=== PATIENT | female | born 1980 | race Native Hawaiian/Other Pacific Islander ===

== ENCOUNTER 2019-12-31 06:34 | Emergency (ER) | payer OTHER, SELFPAY ==
[2019-12-31 06:48] VITALS: BP 116/75; PULSE 74; RESP 15; TEMP 36.6; O2SAT 96; BMI 33.9
--- NOTE | 2019-12-31 07:10 | XR_ITS ---
EXAMINATION: XR LUMBOSACRAL SPINE CLINICAL INFORMATION: Back pain COMPARISON: 01/07/2019 TECHNIQUE: Three views of the lumbosacral spine. FINDINGS: 5 nonrib-bearing vertebral bodies. Normal alignment. Vertebral body heights are maintained. No evidence of vertebral compression deformities. Degenerative changes at T11-12, and L1-2. SI joints and visualized sacrum is intact. Visualized bowel gas pattern is unremarkable. Surgical clips in the right upper abdomen. IMPRESSION: 1. No evidence of acute osseous abnormality. 2. Degenerative changes in the visualized lower lumbar spine, most prominent at T11-12.
--- NOTE | 2019-12-31 07:17 | ED.BACK ---
HPI - Back Pain/Injury General Chief Complaint: Back Pain/Injury Stated Complaint: ?NERVE PAIN LOWER BACK Time Seen by Provider: 12/31/19 07:10 Source: patient Mode of arrival: ambulatory Limitations: no limitations History of Present Illness HPI Narrative: 39-year-old female otherwise relatively healthy presented with low back pain for the past few days slowly and gradually worsening, pain started to radiate to her right buttock area, patient denies any recent trauma specifically to her back, do not report any heavy lifting or strenuous activity, patient also denies any urinary incontinence. MD elicited complaint: back pain Similar Symptoms Previously: No Quality: dull Location: lumbar spine Radiation: buttocks ( Right-sided.) Exacerbating factors: movement and supine positioning Relieving factors: immobilization Related Data Previous Rx's Medication Instructions Recorded oxycodone-acetaminophen [Percocet] 1 tab PO Q8H PRN #10 tab 12/31/19 oxycodone-acetaminophen [Percocet] 1 tab PO Q8H PRN #30 tab 12/31/19 Allergies Allergy/AdvReac Type Severity Reaction Status Date / Time No Known Allergies Allergy Verified 12/31/19 06:47 [No Known Allergies*] Review of Systems Review of Systems: Yes all other systems are reviewed and are negative PMFSH Past Medical History Medical History Anxiety Depression Social History Social History Alcohol intake: never Smoking Status: Never smoker Use of substances other than those prescribed or required for medical reasons: No Advance Directives: No Physical Exam Vital Signs: Vital Signs: Vital Signs Temp Pulse Resp BP Pulse Ox 12/31/19 08:55 98.0 F 67 15 104/64 12/31/19 07:31 67 14 99/52 L 99 12/31/19 06:48 98 F 74 15 116/75 96 Body Mass Index 33.9 Const: General: cooperative and healthy appearing Orientation/consciousness: oriented to person Eyes: General: appearance normal, both eyes and all related structures Chest: Chest palpation & inspection: normal inspection of the chest Resp: Effort & Inspection: normal respiratory effort Cardio: Jugular venous distension: no JVD GI: Inspection: Yes normal to inspection : General: Yes Bimanual renal exam normal bilaterally Skin: General skin exam: no rashes or lesions noted Neuro: General: oriented to person Extrem: General: Yes normal to inspection Course Course Course Narrative: 39 years old female presented with few days of progressing lower back pain, no history of trauma, no history of IV drug abuse, stable vital sign, physical exam not indicated if for cauda equina syndrome, able to ambulate on both toes and heels in the emergency department, patient also is complaining of slightly nausea and lightheaded probably due to patient has pain and did not have breakfast yet abdominal exam was benign. Will check UA, urine , and lumbar spine x-ray, will try NSAIDs. MDM - Back Pain/Injury MDM Narrative Medical decision making narrative: Acute lower back pain nontraumatic, unremarkable UA, unremarkable lumbar spine x-ray. Patient feels slightly better with Motrin ibuprofen patient has intact neuro exam including perianal sensation is intact with no urinary incontinence. Differential Diagnosis Differential diagnosis: Likely lumbar radiculopathy, sciatica, strain of lumbar region and renal colic Medical Records Attestation: I reviewed the patient's medical records. Lab Data Attestation: I reviewed the patient's lab results. Labs: Lab Results 12/31/19 Range/Units 07:47 Urine Color YELLOW Urine Appearance CLEAR Urine pH 5.5 (5.0-8.0) Ur Specific [place] <= 1.005 (1.005-1.025) Urine Protein NEG (NEG-TRACE) MG/DL Urine Glucose (UA) NEG (NEG) MG/DL Urine Ketones NEG (NEG) MG/DL Urine Blood NEG (NEG) Urine Nitrite NEG (NEG) Ur Leukocyte Esterase NEG (NEG) Urine Test NEGATIVE (NEGATIVE) Discharge Plan Discharge Clinical Impression: Lumbar radiculopathy, Sciatica Patient Disposition: Home, Self-Care Instructions: Lumbar Radiculopathy (ED) Prescriptions: New oxycodone-acetaminophen [Percocet] 5-325 mg tablet 1 tab PO Q8H PRN (Reason: pain) Qty: 30 RF: 0 oxycodone-acetaminophen [Percocet] 5-325 mg tablet 1 tab PO Q8H PRN (Reason: pain) Qty: 10 RF: 0 Referrals: Regine Baird MD [Primary Care Provider] - 2 days Stand Alone Forms: Work/School Release
[2019-12-31] MEDS: Ibuprofen 800 MG TABLET PO (07:29)
[2019-12-31 07:31] VITALS: BP 99/52; PULSE 67; RESP 14; O2SAT 99
--- NOTE | 2019-12-31 07:48 | PC.NURSE ---
PT AMB (I) GAIT STEADY TO [facility], PT VOIDED, PT STATES THAT N/V AND VOMITTED MOTRIN 800MG PO THAT WAS GIVEN PRIOR TO GOING TO [facility], MD AWARE.
[2019-12-31 07:57] LABS: Glucose Urine UA NEG (NEG); Leukocyte Esterase Urine NEG (NEG); Nitrite Urine NEG (NEG); PH 5.5 (5.0-8.0); Specific Gravity - Urine <= 1.005 (1.005-1.025); Urine Blood NEG (NEG); Urine Ketones NEG (NEG); Urine Protein NEG (NEG-TRACE)
[2019-12-31 08:01] LABS: Appearance Urine CLEAR; Color Urine YELLOW; UPreg QC Valid YES; Urine Pregnancy NEGATIVE (NEGATIVE)
[2019-12-31 08:55] VITALS: BP 104/64; PULSE 67; RESP 15; TEMP 36.7
== END 2019-12-31 09:12 | disposition home or self-care (01) ==
PROVIDERS: Emergency Provider Emergency Medicine; PCP Internal Medicine
DX: M54.16 Radiculopathy, lumbar region (principal); M54.41 Lumbago with sciatica, right side
CPT/HCPCS: 72100; 81003; 81025; 99283; 99284

== ENCOUNTER 2020-03-09 23:31 | Emergency (ER) | payer OTHER, SELFPAY ==
[2020-03-09 23:53] VITALS: BP 126/68; PULSE 65; RESP 16; TEMP 36.2; O2SAT 100; BMI 32.1
--- NOTE | 2020-03-10 00:15 | ED.BACK ---
HPI - Back Pain/Injury General Chief Complaint: Back Pain/Injury <Lashanda Cash NP - Last Filed: 03/10/20 01:20> Stated Complaint: Back pain <Lashanda Cash NP - Last Filed: 03/10/20 01:20> Time Seen by Provider: 03/10/20 00:18 <Lashanda Cash NP - Last Filed: 03/10/20 01:20> Source: patient <Lashanda Cash NP - Last Filed: 03/10/20 01:20> Mode of arrival: ambulatory <Lashanda Cash NP - Last Filed: 03/10/20 01:20> Limitations: no limitations <Lashanda Cash NP - Last Filed: 03/10/20 01:20> History of Present Illness HPI Narrative: 39-year-old female chronic back pain presents with exacerbation of lower back pain and left hip pain. Patient states that she was at work, the pain kept getting worse. She states that she feels a popping feeling on the left hip. Denies symptoms indicating cauda equina, bladder and bowel incontinence, loss of sensation to the extremities, loss of balance, chest pain or pressure, palpitations, abdominal pain, and abdominal distention, and edema. <Lashanda Cash NP - Last Filed: 03/10/20 01:20> MD elicited complaint: back pain <Lashanda Cash NP - Last Filed: 03/10/20 01:20> Pertinent past history: prior back pain <Lashanda Cash NP - Last Filed: 03/10/20 01:20> Onset (ago): day(s) <KATERYNA Potts Last Filed: 03/10/20 01:20> Timing: constant <Lashanda Cash NP - Last Filed: 03/10/20 01:20> Severity: severe <Lashanda Cash NP - Last Filed: 03/10/20 01:20> Pain scale (0-10): 10 <Lashanda Cash NP - Last Filed: 03/10/20 01:20> Similar Symptoms Previously: Yes <Lashanda Cash NP - Last Filed: 03/10/20 01:20> Quality: aching and throbbing <Lashanda Cash NP - Last Filed: 03/10/20 01:20> Location: lumbar spine and sacrum <Lashanda Cash NP - Last Filed: 03/10/20 01:20> Exacerbating factors: movement and walking <Lashanda Cash NP - Last Filed: 03/10/20 01:20> Relieving factors: none <Lashanda Cash NP - Last Filed: 03/10/20 01:20> Context: turning/twisting <Lashanda Cash NP - Last Filed: 03/10/20 01:20> Associated symptoms: denies other symptoms <Lashanda Cash NP - Last Filed: 03/10/20 01:20> Work related injury: No <Lashanda Cash NP - Last Filed: 03/10/20 01:20> Related Data Home Medications: Previous Rx's Medication Instructions Recorded oxycodone-acetaminophen [Percocet] 1 tab PO Q8H PRN #10 tab 12/31/19 oxycodone-acetaminophen [Percocet] 1 tab PO Q8H PRN #30 tab 12/31/19 cyclobenzaprine 10 mg PO TID PRN #20 tab 03/10/20 diazepam 5 mg PO BEDTIME PRN #7 tab 03/10/20 <Lashanda Cash NP - Last Filed: 03/10/20 01:20> Allergies/Adverse Reactions: Allergies Allergy/AdvReac Type Severity Reaction Status Date / Time No Known Allergies Allergy Verified 03/09/20 23:53 [No Known Allergies*] <Lashanda Cash NP - Last Filed: 03/10/20 01:20> Review of Systems Review of Systems: Constitutional: No Weight loss, No Fever, No Chills, ENT/Mouth: No Hearing loss, No Ear Pain, No Nasal Congestion, No Sinus Pain, No Hoarseness, No sore throat, No Rhinorrhea, No Swallowing Difficulty Cardiovascular: No Chest Pain, No SOB Respiratory: No Cough, No Dyspnea Gastrointestinal: No Nausea, No Vomiting, No Diarrhea, No abdominal Pain, No Hematochezia, No Melena Genitourinary: No Dysuria, No Urinary Frequency, No Hematuria, No Urinary Incontinence, Musculoskeletal: positive back pain Skin: No Skin Lesions, No rash Neuro: No Weakness, No Numbness, No Paresthesias, no loss of bowel or bladder incontinence, no saddle anesthesia <Lashanda Cash NP - Last Filed: 03/10/20 01:20> Yes all other systems are reviewed and are negative <Lashanda Cash NP - Last Filed: 03/10/20 01:20> PMFSH Past Medical History Attestation statement: The following information was validated with the patient. <Lashanda Cash NP - Last Filed: 03/10/20 01:20> Medical History: Medical History Anxiety Depression <Lashanda Cash NP - Last Filed: 03/10/20 01:20> Social History Social History: Social History Alcohol intake: never Smoking Status: Never smoker Use of substances other than those prescribed or required for medical reasons: No Advance Directives: No Advance Directives Information Provided: No <Lashanda Cash NP - Last Filed: 03/10/20 01:20> Physical Exam Vital Signs: Vital Signs: Last Vital Signs Temp 97.1 F 03/09/20 23:53 Pulse 65 03/09/20 23:53 Resp 16 03/09/20 23:53 BP 126/68 03/09/20 23:53 Pulse Ox 100 03/09/20 23:53 Body Mass Index 32.1 <Lashanda Cash NP - Last Filed: 03/10/20 01:20> Vital Signs: Last Vital Signs Temp 97.1 F 03/09/20 23:53 Pulse 65 03/09/20 23:53 Resp 16 03/09/20 23:53 BP 126/68 03/09/20 23:53 Pulse Ox 100 03/09/20 23:53 Body Mass Index 32.1 <Sarita Lujan MD - Last Filed: 03/10/20 07:43> Appearance: Alert. Oriented X3. Moderate distress. Eyes: Pupils equal, round and reactive to light. ENT: Pharynx normal. Neck: Normal inspection. Neck supple. CVS: Normal heart rate and rhythm. Pulses normal. Respiratory: No respiratory distress. Breath sounds normal. Abdomen: Soft and nontender. Skin: Skin warm and dry. Normal skin color. Normal skin turgor. Muscular skeletal: Tenderness to lower palpation, bilateral CVA tenderness secondary to muscle spasms. Extremities: No lower extremity edema. Full range of motion to all extremities, strength 5/5, sensation and pulses equal to all extremities. Neuro: No motor deficit. No sensory deficit. <Lashanda Cash NP - Last Filed: 03/10/20 01:20> Course Course Course Narrative: 39-year-old with chronic back pain presents with an exacerbation of lower back pain and muscle spasms. Plan of care is for x-rays, Toradol. Patient is driving. X-rays are normal and indicate chronic findings of degenerative joint disease. Plan of care is to discharge home. Patient verbalized understanding of and agrees to plan of care. <Lashanda Cash NP - Last Filed: 03/10/20 01:20> MDM - Back Pain/Injury Differential Diagnosis Differential diagnosis: Likely lumbar radiculopathy, sciatica, strain of lumbar region, thoracic back pain and discitis <Lashanda Cash NP - Last Filed: 03/10/20 01:20> Medical Records Attestation: I reviewed the patient's medical records. <KATERYNA Potts Last Filed: 03/10/20 01:20> Imaging Data Lumbar, sacral spine x-rays. Left hip x-ray: Attestation: I personally reviewed and interpreted this imaging study as follows: <Lashanda Cash NP - Last Filed: 03/10/20 01:20> Radiologist's impression: EXAMINATION: XR LUMBAR SPINE XR SACRUM AND COCCYX XR HIP, LEFT CLINICAL INFORMATION: Left hip pain. Low back pain. COMPARISON: Lumbar spine x-rays of 12/31/2019 and 01/07/2019. TECHNIQUE: 3 views of the lumbar spine. 3 views of the sacrum and coccyx. 2 views of left hip. FINDINGS: LUMBAR SPINE, SACRUM AND COCCYX: There are 5 lumbar-type nondependent vertebrae. Vertebral body heights and alignment are maintained. Intervertebral disc spaces are preserved. Small anterior endplate osteophytes are noted in the lower thoracic and upper lumbar spine. Sacrum and coccyx are intact. There is no evidence of from suspicious lytic or blastic osseous lesions. Surgical clips in the right upper abdominal quadrant are again noted. LEFT HIP: The femoral head is well seated in the acetabulum. Hip joint spaces preserved. No evidence of subarticular sclerosis or cystic changes. No osteophytic changes are noted. Normal osseous mineralization. No dystrophic soft tissue calcifications are seen. XR/XR hip LT min 2V IMPRESSION: 1. No evidence of acute compression fracture in the lumbar spine. No acute osseous abnormality in the sacrum and coccyx. Mild degenerative changes in the visualized lower thoracic and upper lumbar spine. 2. Unremarkable left hip radiographs. <Lashanda Cash NP - Last Filed: 03/10/20 01:20> Discharge Plan Discharge Clinical Impression: Degenerative disc disease at L5-S1 level, Muscle spasm of back <KATERYNA Potts Last Filed: 03/10/20 01:20> Patient Disposition: Home, Self-Care <Lashanda Cash NP - Last Filed: 03/10/20 01:20> Instructions: Muscle Spasm (ED), Degenerative Disc Disease (ED) <KATERYNA Potts Last Filed: 03/10/20 01:20> Additional Instructions: You were evaluated for chronic lower back pain and muscle spasms. We prescribed diazepam which is a benzo diazepam. Do not drink alcohol with the medication. Take this medication as directed. Medication can increase risk for falls and cause drowsiness. Do not drive or operate machinery while taking this medication. Use this medication at night to help relieve your muscle spasms. We prescribed Flexeril -cyclobenzaprine- as a muscle relaxer. This medication will not take away her pain it will relieve the tension of the muscles on the spine. This medication is not a narcotic, but can delay reaction time, cause drowsiness, and increased risk for falls. 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 You need further care to prevent further deterioration Thank you for choosing this emergency department for evaluation. Please follow-up with primary care physician as needed. Return to the emergency department for any new, concerning, or worsening symptoms. <KATERYNA Potts Last Filed: 03/10/20 01:20> Prescriptions: New cyclobenzaprine 10 mg tablet 10 mg PO TID PRN (Reason: muscle spasm) Qty: 20 RF: 0 diazepam 5 mg tablet 5 mg PO BEDTIME PRN (Reason: muscle spasm) Qty: 7 RF: 0 No Action oxycodone-acetaminophen [Percocet] 5-325 mg tablet 1 tab PO Q8H PRN (Reason: pain) Qty: 30 RF: 0 oxycodone-acetaminophen [Percocet] 5-325 mg tablet 1 tab PO Q8H PRN (Reason: pain) Qty: 10 RF: 0 <Lashanda Cash NP - Last Filed: 03/10/20 01:20> Referrals: Avila Arzate MD [Physician] - 2 days (Degenerative joint disease, chronic back pain) <Lashanda Cash NP - Last Filed: 03/10/20 01:20> Interventions: ED Discharge Assessment Last Done: 03/10/20 01:21 <Lashanda Cash NP - Last Filed: 03/10/20 01:20> Discharge Date/Time: 03/10/20 01:24 <Lashanda Cash NP - Last Filed: 03/10/20 01:20>
--- NOTE | 2020-03-10 00:22 | XR_ITS ---
EXAMINATION: XR LUMBAR SPINE XR SACRUM AND COCCYX XR HIP, LEFT CLINICAL INFORMATION: Left hip pain. Low back pain. COMPARISON: Lumbar spine x-rays of 12/31/2019 and 01/07/2019. TECHNIQUE: 3 views of the lumbar spine. 3 views of the sacrum and coccyx. 2 views of left hip. FINDINGS: LUMBAR SPINE, SACRUM AND COCCYX: There are 5 lumbar-type nondependent vertebrae. Vertebral body heights and alignment are maintained. Intervertebral disc spaces are preserved. Small anterior endplate osteophytes are noted in the lower thoracic and upper lumbar spine. Sacrum and coccyx are intact. There is no evidence of from suspicious lytic or blastic osseous lesions. Surgical clips in the right upper abdominal quadrant are again noted. LEFT HIP: The femoral head is well seated in the acetabulum. Hip joint spaces preserved. No evidence of subarticular sclerosis or cystic changes. No osteophytic changes are noted. Normal osseous mineralization. No dystrophic soft tissue calcifications are seen. XR/XR hip LT min 2V IMPRESSION: 1. No evidence of acute compression fracture in the lumbar spine. No acute osseous abnormality in the sacrum and coccyx. Mild degenerative changes in the visualized lower thoracic and upper lumbar spine. 2. Unremarkable left hip radiographs.
--- NOTE | 2020-03-10 00:22 | XR_ITS ---
EXAMINATION: XR LUMBAR SPINE XR SACRUM AND COCCYX XR HIP, LEFT CLINICAL INFORMATION: Left hip pain. Low back pain. COMPARISON: Lumbar spine x-rays of 12/31/2019 and 01/07/2019. TECHNIQUE: 3 views of the lumbar spine. 3 views of the sacrum and coccyx. 2 views of left hip. FINDINGS: LUMBAR SPINE, SACRUM AND COCCYX: There are 5 lumbar-type nondependent vertebrae. Vertebral body heights and alignment are maintained. Intervertebral disc spaces are preserved. Small anterior endplate osteophytes are noted in the lower thoracic and upper lumbar spine. Sacrum and coccyx are intact. There is no evidence of from suspicious lytic or blastic osseous lesions. Surgical clips in the right upper abdominal quadrant are again noted. LEFT HIP: The femoral head is well seated in the acetabulum. Hip joint spaces preserved. No evidence of subarticular sclerosis or cystic changes. No osteophytic changes are noted. Normal osseous mineralization. No dystrophic soft tissue calcifications are seen. XR/XR lumbar spine 2-3V IMPRESSION: 1. No evidence of acute compression fracture in the lumbar spine. No acute osseous abnormality in the sacrum and coccyx. Mild degenerative changes in the visualized lower thoracic and upper lumbar spine. 2. Unremarkable left hip radiographs.
--- NOTE | 2020-03-10 00:22 | XR_ITS ---
EXAMINATION: XR LUMBAR SPINE XR SACRUM AND COCCYX XR HIP, LEFT CLINICAL INFORMATION: Left hip pain. Low back pain. COMPARISON: Lumbar spine x-rays of 12/31/2019 and 01/07/2019. TECHNIQUE: 3 views of the lumbar spine. 3 views of the sacrum and coccyx. 2 views of left hip. FINDINGS: LUMBAR SPINE, SACRUM AND COCCYX: There are 5 lumbar-type nondependent vertebrae. Vertebral body heights and alignment are maintained. Intervertebral disc spaces are preserved. Small anterior endplate osteophytes are noted in the lower thoracic and upper lumbar spine. Sacrum and coccyx are intact. There is no evidence of from suspicious lytic or blastic osseous lesions. Surgical clips in the right upper abdominal quadrant are again noted. LEFT HIP: The femoral head is well seated in the acetabulum. Hip joint spaces preserved. No evidence of subarticular sclerosis or cystic changes. No osteophytic changes are noted. Normal osseous mineralization. No dystrophic soft tissue calcifications are seen. XR/XR sacrum coccyx min 2V IMPRESSION: 1. No evidence of acute compression fracture in the lumbar spine. No acute osseous abnormality in the sacrum and coccyx. Mild degenerative changes in the visualized lower thoracic and upper lumbar spine. 2. Unremarkable left hip radiographs.
[2020-03-10] MEDS: Ketorolac Tromethamine 60 MG/2 ML VIAL IM (00:49)
== END 2020-03-10 01:24 | disposition home or self-care (01) ==
PROVIDERS: Emergency Provider Student in an Organized Health Care Education/Training Program; PCP Internal Medicine
DX: M51.37 Other intervertebral disc degeneration, lumbosacral region (principal); M54.5 Low back pain; Z79.899 Other long term (current) drug therapy
CPT/HCPCS: 72100; 72220; 73502; 96372; 99284; J1885

== ENCOUNTER 2020-04-20 08:06 | Emergency (ER) | payer OTHER, SELFPAY ==
--- NOTE | ~2020-04-20 | XR_ITS ---
EXAMINATION: XR CHEST CLINICAL INFORMATION: Cough COMPARISON: 05/01/2019 chest radiographs. TECHNIQUE: Frontal view of the chest was obtained. FINDINGS: No significant abnormality is noted involving the heart, lungs, mediastinum, bony thorax or soft tissues. XR/XR chest 1V IMPRESSION: No acute cardiopulmonary process.
[2020-04-20 08:15] VITALS: BP 134/79; PULSE 84; RESP 16; TEMP 36.8; O2SAT 99; BMI 33.9
--- NOTE | 2020-04-20 08:22 | ED_ITS ---
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 Does have family history of asthma. States chest hurts when she coughs. Otherwise no chest pain at rest or exertion, no leg swelling. Denies any prior history of DVT/PE. Not currently taking any hormone therapy. MD elicited complaint: cough Onset (ago): day(s) Consistency: intermittent Severity: moderate Description of mucous: clear Exacerbating factors: other (Cough) Relieving factors: cough suppressant Treatments prior to arrival: none Related Data Previous Rx's Medication Instructions Recorded oxycodone-acetaminophen [Percocet] 1 tab PO Q8H PRN #10 tab 12/31/19 oxycodone-acetaminophen [Percocet] 1 tab PO Q8H PRN #30 tab 12/31/19 cyclobenzaprine 10 mg PO TID PRN #20 tab 03/10/20 diazepam 5 mg PO BEDTIME PRN #7 tab 03/10/20 albuterol sulfate 2 puff INHALATION Q4-6H PRN #8.5 g 04/20/20 azithromycin [Zithromax Z-Candido] 250 mg PO DAILY 5 Days #6 tab 04/20/20 prednisone 40 mg PO DAILY 5 Days #10 tab 04/20/20 Allergies Allergy/AdvReac Type Severity Reaction Status Date / Time No Known Allergies Allergy Verified 03/09/20 23:53 [No Known Allergies*] Review of Systems Review of Systems: Constitutional: No Weight loss, No Fever, No Chills, No Night Sweats, No Fatigue, No Malaise ENT/Mouth: No Hearing loss, No Ear Pain, + Nasal Congestion, No Sinus Pain, No Hoarseness, No sore throat, No Rhinorrhea, No Swallowing Difficulty Eyes: No Eye Pain, No Swelling, No Redness, No Foreign Body, No Discharge, No Vision Changes Cardiovascular: No Chest Pain, No SOB, No Dyspnea on Exertion, No Orthopnea, No Edema, No Palpitations Respiratory: + Cough, No Sputum, No Wheezing, No Smoke Exposure, No Dyspnea Gastrointestinal: No Nausea, No Vomiting, No Diarrhea, No Constipation, No abdominal Pain, No Hematochezia, No Melena Genitourinary: No Dysuria, No Urinary Frequency, No Hematuria, No Urinary Incontinence, No Urgency, No Flank Pain, No Urinary Flow Changes, No Hesitancy Musculoskeletal: No joint pain, No Myalgias, No Joint Swelling Skin: No Skin Lesions, No rash Neuro: No Weakness, No Numbness, No Paresthesias, No Loss of Consciousness, No Dizziness, No Headache Psych: No Social Issues Heme/Lymph: No Bruising, No Bleeding,No Lymphadenopathy Endocrine: No Polyuria, No Polydipsia, No Temperature Intolerance Yes all other systems are reviewed and are negative [facility] Past Medical History Medical History (Updated 04/20/20 @ 09:35 by Ron Guerrero NP) Anxiety Asthma Depression Social History Social History Alcohol intake: never Smoking Status: Never smoker Use of substances other than those prescribed or required for medical reasons: No Advance Directives: No Advance Directives Information Provided: No Physical Exam Vital Signs: Vital Signs: Last Vital Signs Temp 98.3 F 04/20/20 08:15 Pulse 84 04/20/20 08:15 Resp 16 04/20/20 08:15 BP 134/79 04/20/20 08:15 Pulse Ox 99 04/20/20 08:15 Body Mass Index 33.9 Reviwed Const: General: cooperative and healthy appearing; No acute distress or intoxicated appearing Nutritional Appearance: average body habitus Orientation/consciousness: patient oriented x3 HENMT: Head: Yes normal to inspection Ears: hearing grossly normal bilaterally Eyes: General: appearance normal, both eyes and all related structures Visual Rivera: normal visual rivera by confrontation Neck: Neck: Yes normal visual inspection, No positive Brudzinski's sign, No positive Kernig's sign and No tender Thyroid: Thyroid normal Chest: Other: Fits of dry bronchial cough Chest palpation & inspection: normal inspection of the chest Resp: Effort & Inspection: normal respiratory effort Auscultation: clear to auscultation bilaterally Cardio: Jugular venous distension: no JVD GI: Inspection: Yes normal to inspection Percussion: Yes normal to percussion Auscultation: normal bowel sounds : General: Yes no CVA tenderness Back/Spine/Pelvis: Back: no CVA tenderness Skin: General skin exam: no rashes or lesions noted Neuro: General: patient oriented x3 Extrem: General: Yes normal to inspection Course Course Course Narrative: To remain out of work until at least 3 days symptom free, to follow work place policy. Overall nontoxic appearing. Chest x-ray without acute findings. Will discharge with azithromycin, short course prednisone and inhaler. Feels comfortable plan. Hemodynamically stable. Stable for discharge. MDM - URI/Sore Throat Differential Diagnosis Differential diagnosis: Likely upper respiratory infection, viral infection and bronchitis; Unlikely croup, otitis media, sinusitis, influenza and pharyngitis Medical Records Attestation: I reviewed the patient's medical records. Lab Data Attestation: I reviewed the patient's lab results. Labs: Lab Results 04/20/20 Range/Units 08:26 Coronavirus (PCR) NEGATIVE (Negative) Influenza Type A (PCR) NEGATIVE (Negative) Influenza Type B (PCR) NEGATIVE (Negative) RSV RNA Qual (PCR) NEGATIVE (Negative) Discharge Plan Discharge Clinical Impression: Acute upper respiratory infection Patient Disposition: Home, Self-Care Instructions: Upper Respiratory Infection (ED), Acute Bronchitis (ED) Additional Instructions: Your COVID test is negative today Your chest x-ray did not show any evidence of pneumonia Home care as instructed Take medication prescribed Drink plenty of fluids Return if any concerns or worsening symptoms Follow up as instructed Thank you Prescriptions: New azithromycin [Zithromax Z-Candido] 250 mg tablet 250 mg PO DAILY 5 Days Qty: 6 RF: 0 prednisone 20 mg tablet 40 mg PO DAILY 5 Days Qty: 10 RF: 0 albuterol sulfate 90 mcg/actuation HFA aerosol inhaler 2 puff inhalation Q4-6H PRN (Reason: shortness of breath or wheezing) Qty: 8.5 RF: 0 No Action oxycodone-acetaminophen [Percocet] 5-325 mg tablet 1 tab PO Q8H PRN (Reason: pain) Qty: 30 RF: 0 oxycodone-acetaminophen [Percocet] 5-325 mg tablet 1 tab PO Q8H PRN (Reason: pain) Qty: 10 RF: 0 cyclobenzaprine 10 mg tablet 10 mg PO TID PRN (Reason: muscle spasm) Qty: 20 RF: 0 diazepam 5 mg tablet 5 mg PO BEDTIME PRN (Reason: muscle spasm) Qty: 7 RF: 0 Referrals: Regine Baird MD [Primary Care Provider] - 1 week (Phone Visit ) Stand Alone Forms: Work/School Release Interventions: ED Discharge Assessment Last Done: 04/20/20 10:03 Discharge Date/Time: 04/20/20 10:04
[2020-04-20 09:40] LABS: Influenza A PCR NEGATIVE (Negative); Influenza B PCR NEGATIVE (Negative); Resp Syncy Virus RNA Qual PCR NEGATIVE (Negative); SARS COV2 PCR INHOUSE NEGATIVE (Negative)
== END 2020-04-20 10:04 | disposition home or self-care (01) ==
PROVIDERS: Nurse Practitioner Primary Care; Emergency Provider Emergency Medicine; PCP Internal Medicine
DX: J06.9 Acute upper respiratory infection, unspecified (principal); R50.9 Fever, unspecified; R05 Cough; Z79.899 Other long term (current) drug therapy; Z20.822 Contact with and (suspected) exposure to COVID-19
CPT/HCPCS: 0241U; 36415; 71045; 99283; 99284

== ENCOUNTER 2020-05-01 04:52 | Emergency (ER) | payer OTHER, SELFPAY ==
--- NOTE | 2020-05-01 05:32 | ED.BACK ---
HPI - Back Pain/Injury General Chief Complaint: Back Pain/Injury Stated Complaint: PINCHED NERVE BACK PAIN Time Seen by Provider: 05/01/20 05:12 Source: patient and old records reviewed Mode of arrival: ambulatory Limitations: no limitations History of Present Illness HPI Narrative: 40 yo female with back pain recently dx with neural tumor per her - twisted tonight and felt a pop causing pain - no b/b incontinence, no saddle anesthesia, no IVDA< no AC therapy MD elicited complaint: back pain and back injury Pertinent past history: prior back pain Onset (ago): hour(s) (prior to arrival ) Timing: constant Severity: severe Quality: sharp Location: lumbar spine Radiation: right upper leg Exacerbating factors: movement Relieving factors: none Context: turning/twisting Associated symptoms: denies other symptoms Work related injury: No Related Data Previous Rx's Medication Instructions Recorded oxycodone-acetaminophen [Percocet] 1 tab PO Q8H PRN #10 tab 12/31/19 oxycodone-acetaminophen [Percocet] 1 tab PO Q8H PRN #30 tab 12/31/19 cyclobenzaprine 10 mg PO TID PRN #20 tab 03/10/20 diazepam 5 mg PO BEDTIME PRN #7 tab 03/10/20 albuterol sulfate 2 puff INHALATION Q4-6H PRN #8.5 g 04/20/20 azithromycin [Zithromax Z-Candido] 250 mg PO DAILY 5 Days #6 tab 04/20/20 prednisone 40 mg PO DAILY 5 Days #10 tab 04/20/20 diazepam [Valium] 5 mg PO TID PRN #10 tab 05/01/20 gabapentin 100 mg PO TID PRN #30 cap 05/01/20 ibuprofen 600 mg PO Q6H PRN #30 tab 05/01/20 Allergies Allergy/AdvReac Type Severity Reaction Status Date / Time No Known Allergies Allergy Verified 05/01/20 05:39 [No Known Allergies*] Review of Systems Review of Systems: Constitutional : No Fever, No Chills, Cardiovascular : No Chest Pain, No SOB Respiratory : No Cough, No Dyspnea Gastrointestinal : No Nausea, No Vomiting Genitourinary : No Dysuria, No Urinary Frequency, No Hematuria, No Urinary Incontinence, Musculoskeletal : positive back pain Skin : No Skin Lesions, No rash PMFSH Past Medical History Attestation statement: The following information was validated with the patient. Medical History (Updated 05/01/20 @ 06:02 by Karyna Xiong DO) Anxiety Asthma Chronic back pain Depression Social History Social History Alcohol intake: never Smoking Status: Never smoker Advance Directives: No Physical Exam Vital Signs: Vital Signs: Last Vital Signs Temp 98.3 F 05/01/20 05:35 Pulse 73 05/01/20 05:35 Resp 22 H 05/01/20 05:35 BP 126/72 05/01/20 05:35 Pulse Ox 99 05/01/20 05:35 Body Mass Index 33.5 Appearance: Alert. Oriented X3. No acute distress. Eyes: Pupils equal, round and reactive to light. ENT: Pharynx normal. Neck: Normal inspection. Neck supple. CVS: Normal heart rate and rhythm. Pulses normal. Respiratory: No respiratory distress. Breath sounds normal. Abdomen: Soft and nontender. Back: R sided pain Skin: Skin warm and dry. Normal skin color. Normal skin turgor. Extremities: No lower extremity edema. No calf ttp Neuro: Oriented X 3. No motor deficit. No sensory deficit. SILT inner thigh, L5 5/5 bilaterally Course Course Course Narrative: patient reports SI now - may have been attempt, repeat IV ativan for anxiety from cocaine, signed out pending repeat labs, medical clearance and BHN consult MDM - Back Pain/Injury MDM Narrative Medical decision making narrative: 40 yo female with chronic back pain here with R sided pain in a spot she was just dx at [facility] ?neural tumor has plans to see a neurosurgeon - the patient has no ride home, offered analgesic but she needs to find ride, the patient declines - IM Toradol ordered, patient wants to go home at this time after injection, will offer valium, motrin, gabapentin Discharge Plan Discharge Clinical Impression: Lumbar radiculopathy Patient Disposition: Home, Self-Care Instructions: Lumbar Radiculopathy (ED) Additional Instructions: return to ED for any worsening symptoms or concerns please follow up with your outside providers Prescriptions: New ibuprofen 600 mg tablet 600 mg PO Q6H PRN (Reason: pain) Qty: 30 RF: 0 diazepam [Valium] 5 mg tablet 5 mg PO TID PRN (Reason: muscle spasm) Qty: 10 RF: 0 gabapentin 100 mg capsule 100 mg PO TID PRN (Reason: pain) Qty: 30 RF: 0 No Action oxycodone-acetaminophen [Percocet] 5-325 mg tablet 1 tab PO Q8H PRN (Reason: pain) Qty: 30 RF: 0 oxycodone-acetaminophen [Percocet] 5-325 mg tablet 1 tab PO Q8H PRN (Reason: pain) Qty: 10 RF: 0 cyclobenzaprine 10 mg tablet 10 mg PO TID PRN (Reason: muscle spasm) Qty: 20 RF: 0 diazepam 5 mg tablet 5 mg PO BEDTIME PRN (Reason: muscle spasm) Qty: 7 RF: 0 azithromycin [Zithromax Z-Candido] 250 mg tablet 250 mg PO DAILY 5 Days Qty: 6 RF: 0 prednisone 20 mg tablet 40 mg PO DAILY 5 Days Qty: 10 RF: 0 albuterol sulfate 90 mcg/actuation HFA aerosol inhaler 2 puff inhalation Q4-6H PRN (Reason: shortness of breath or wheezing) Qty: 8.5 RF: 0
[2020-05-01 05:35] VITALS: BP 126/72; PULSE 73; RESP 22; TEMP 36.8; O2SAT 99; BMI 33.5
[2020-05-01] MEDS: Ketorolac Tromethamine 60 MG/2 ML VIAL IM (05:51)
== END 2020-05-01 06:08 | disposition home or self-care (01) ==
PROVIDERS: Emergency Provider Emergency Medicine; PCP Internal Medicine
DX: M54.16 Radiculopathy, lumbar region (principal); M79.604 Pain in right leg; Z79.899 Other long term (current) drug therapy
CPT/HCPCS: 96372; 99283; 99284; J1885

== ENCOUNTER 2020-06-13 16:09 | Emergency (ER) | payer OTHER, SELFPAY ==
--- NOTE | 2020-06-13 16:31 | PC.NURSE ---
pt c/o lightheaded, tiredness, mild sob x3 days, pt has covid + coworkers, pt at this time is refusing to sit in covid area and has decided to sit in the entrance of the ed [facility], pt would like to sit in her car and wait there until she is to be seen, spoke with charge nurse who has directed me to call jennifer- attempted to call but was unable to get ahold of her at this time, sent tiger text and will f/u with charge nurse.
[2020-06-13 17:13] VITALS: BP 127/72; PULSE 72; RESP 16; TEMP 37.3; O2SAT 99; BMI 33.0
== END 2020-06-13 18:16 | disposition left against medical advice (07) ==
PROVIDERS: Emergency Provider Emergency Medicine; PCP Internal Medicine
DX: R07.9 Chest pain, unspecified (principal); Z20.822 Contact with and (suspected) exposure to COVID-19
CPT/HCPCS: 99281; 99282

== ENCOUNTER 2020-09-19 05:24 | Emergency (ER) | payer OTHER, SELFPAY ==
--- NOTE | ~2020-09-19 | XR_ITS ---
EXAMINATION: XR SHOULDER, RIGHT CLINICAL INFORMATION: Shoulder pain. COMPARISON: Chest radiograph 04/20/2020. TECHNIQUE: AP external rotated, Grashey, transscapular radiographs of the right shoulder. FINDINGS: Mild sclerosis of the greater tuberosity of the right humerus is noted. Glenohumeral joint spacing and alignment are normal in appearance. No dystrophic soft tissue calcifications are visualized. No osteophytosis of the acromioclavicular joint is noted. Visualized right ribs and lung are normal in appearance. XR/XR shoulder RT min 2V IMPRESSION: 1. Mild sclerosis of the greater tuberosity of the right humerus. This finding may represent chronic reactive changes related to tendinosis of the supraspinatus or infraspinatus tendons which insert at the greater tuberosity. Overall, findings may represent subtle radiographic evidence of rotator cuff degeneration. Normal glenohumeral alignment. Normal appearance of the acromioclavicular joint.
[2020-09-19 05:56] VITALS: BP 122/72; PULSE 64; RESP 16; TEMP 36.1; O2SAT 98; BMI 32.6
--- NOTE | 2020-09-19 06:41 | PC.NURSE ---
PT TO ROOM, CHG INTO GOWN AND AWAITING FOR MD'S EVAL.
--- NOTE | 2020-09-19 06:50 | PC.NURSE ---
PT TO ROOM WITH C/O RIGHT SHOULDER PAIN X 2-3 MONTHS.. PT CHG INTO GOWN AND MD AT BEDSIDE FOR EVAL. PT ALERT, RESPIRATIONS EASY, N/L. SKIN W/D. WILL CONTINUE TO MONITOR PT.
--- NOTE | 2020-09-19 06:54 | ED_ITS ---
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 Patient has been having right shoulder pain that progressively getting worse, pain is constant for few weeks, worsening by movement, nothing relieves the pain, no other associated symptoms. No history of falling. Related Data Previous Rx's Medication Instructions Recorded oxycodone-acetaminophen [Percocet] 1 tab PO Q8H PRN #10 tab 12/31/19 oxycodone-acetaminophen [Percocet] 1 tab PO Q8H PRN #30 tab 12/31/19 cyclobenzaprine 10 mg PO TID PRN #20 tab 03/10/20 diazepam 5 mg PO BEDTIME PRN #7 tab 03/10/20 albuterol sulfate 2 puff INHALATION Q4-6H PRN #8.5 g 04/20/20 azithromycin [Zithromax Z-Candido] 250 mg PO DAILY 5 Days #6 tab 04/20/20 prednisone 40 mg PO DAILY 5 Days #10 tab 04/20/20 diazepam [Valium] 5 mg PO TID PRN #10 tab 05/01/20 gabapentin 100 mg PO TID PRN #30 cap 05/01/20 ibuprofen 600 mg PO Q6H PRN #30 tab 05/01/20 ibuprofen 600 mg PO Q8H PRN #20 tab 09/19/20 Allergies Allergy/AdvReac Type Severity Reaction Status Date / Time No Known Allergies Allergy Verified 05/01/20 05:39 [No Known Allergies*] Review of Systems Review of Systems: All other systems are reviewed and are negative Constitutional: Reports as per HPI and Reports no additional constitutional complaints Eyes: Reports as per HPI and Reports no additional eye complaints Reports system reviewed and no additional complaints, except as documented Cardiovascular: Reports as per HPI and Reports no additional cardiovascular complaints Respiratory: Reports as per HPI and Reports no additional respiratory complaints Gastrointestinal: Reports as per HPI and Reports no additional gastrointestinal complaints Genitourinary: Reports no additional female genitourinary complaints Musculoskeletal: Reports no additional musculoskeletal complaints Skin/Breast: Reports system reviewed and no additional complaints, except as docu Psychiatric: Reports no additional psychiatric complaints Endocrine: Reports no additional endocrine complaints Hematologic/Lymphatic: Reports no additional hematologic/lymphatic complaints Allergic/Immunologic: Reports no additional allergic/immunologic complaints Reports system reviewed and no additional complaints, except as documented and Reports Abnormal speech present [facility] Past Medical History Medical History Anxiety Asthma Chronic back pain Depression Social History Social History Alcohol intake: never Advance Directives: No Advance Directives Information Provided: No Patient : No Physical Exam Vital Signs: Vital Signs: Last Vital Signs Temp 96.9 F 09/19/20 05:56 Pulse 64 09/19/20 05:56 Resp 16 09/19/20 05:56 BP 122/72 09/19/20 05:56 Pulse Ox 98 09/19/20 05:56 Body Mass Index 32.6 vital signs have been reviewed as appeared to be correct. Blood pressure normal. Heart rate normal. Respiration rate normal. Temperature normal. Oxygen saturation normal. Appearance: Alert. Oriented X3. No acute distress. Head: Normal external exam. Normocephalic. Atraumatic. No West signs noted. No raccoon eyes noted Eyes: PERRLA. EOMI. Conjunctiva and sclera normal. Eyelids normal. ENT: TM's Normal. Pharynx normal. Uvula midline. Moist mucous membranes. No trismus noted. No drooling noted. No muffled voice noted. Neck: Normal inspection. Neck supple. FROM. No adenopathy. Thyroid Normal. No meningeal signs. No neck mass noted. CVS: Normal heart rate and rhythm. Heart sound normal. No murmurs noted. Pulses normal throughout. Respiratory: No respiratory distress. Painless inspiration. Breath sounds normal. No wheezes/rales/rhonchi noted. Chest nontender. No accessory muscle usage noted or decreased air movement noted. Abdomen: Soft and nontender. Bowel sounds normal in all 4 quadrants. No distention noted. No organomegaly noted. No visible injury noted. Back: No CVA tenderness. Full range of motion noted. Skin: Skin warm and dry. Normal skin color. Normal skin turgor. No rashes/lesions/lacerations noted. Extremities: Right shoulder held an adduction position, with pain to abduction especially if she go above 30 degree, no deformity in the shoulder, no anterior fullness, intact neurovascular exam. Neuro: Oriented X 3. No motor deficit. No sensory deficit. Reflexes normal. Course Course Course Narrative: 40-year-old female came in with few weeks history of right shoulder pain after work related injury, x-ray, physical exam are consistent with rotator cuff injury. Will provide patient with shoulder immobilizer, ice, NSAIDs, follow up with Ortho. MDM - Extremity (Nontraumatic) Imaging Data Right shoulder x-ray: Radiologist's impression: 1. Mild sclerosis of the greater tuberosity of the right humerus. This finding may represent chronic reactive changes related to tendinosis of the supraspinatus or infraspinatus tendons which insert at the greater tuberosity. Overall, findings may represent subtle radiographic evidence of rotator cuff degeneration. Normal glenohumeral alignment. Normal appearance of the acromioclavicular joint. Discharge Plan Discharge Clinical Impression: Rotator cuff injury Qualifiers: Encounter type: initial encounter Laterality: right Qualified Code(s): S46.001A - Unspecified injury of muscle(s) and tendon(s) of the rotator cuff of right shoulder, initial encounter Patient Disposition: Home, Self-Care Instructions: Rotator Cuff Injury (ED) Prescriptions: New ibuprofen 600 mg tablet 600 mg PO Q8H PRN (Reason: pain) Qty: 20 RF: 0 No Action oxycodone-acetaminophen [Percocet] 5-325 mg tablet 1 tab PO Q8H PRN (Reason: pain) Qty: 30 RF: 0 oxycodone-acetaminophen [Percocet] 5-325 mg tablet 1 tab PO Q8H PRN (Reason: pain) Qty: 10 RF: 0 cyclobenzaprine 10 mg tablet 10 mg PO TID PRN (Reason: muscle spasm) Qty: 20 RF: 0 diazepam 5 mg tablet 5 mg PO BEDTIME PRN (Reason: muscle spasm) Qty: 7 RF: 0 ibuprofen 600 mg tablet 600 mg PO Q6H PRN (Reason: pain) Qty: 30 RF: 0 diazepam [Valium] 5 mg tablet 5 mg PO TID PRN (Reason: muscle spasm) Qty: 10 RF: 0 gabapentin 100 mg capsule 100 mg PO TID PRN (Reason: pain) Qty: 30 RF: 0 azithromycin [Zithromax Z-Candido] 250 mg tablet 250 mg PO DAILY 5 Days Qty: 6 RF: 0 prednisone 20 mg tablet 40 mg PO DAILY 5 Days Qty: 10 RF: 0 albuterol sulfate 90 mcg/actuation HFA aerosol inhaler 2 puff inhalation Q4-6H PRN (Reason: shortness of breath or wheezing) Qty: 8.5 RF: 0 Referrals: Lior Ramirez MD [Physician] - 2 days Regine Baird MD [Primary Care Provider] - 2 days Interventions: ED Discharge Assessment Last Done: 09/19/20 07:53 Discharge Date/Time: 09/19/20 07:55
== END 2020-09-19 07:55 | disposition home or self-care (01) ==
PROVIDERS: Emergency Provider Emergency Medicine; PCP Internal Medicine
DX: S46.001A Unspecified injury of muscle(s) and tendon(s) of the rotator cuff of right shoulder, initial encounter (principal); X58.XXXA Exposure to other specified factors, initial encounter; Y93.9 Activity, unspecified; Y92.89 Other specified places as the place of occurrence of the external cause; Y99.0 Civilian activity done for income or pay
CPT/HCPCS: 73030; 99283

== ENCOUNTER → 2020-10-04 10:21 | Outpatient (BNVA) | payer OTHER, SELFPAY | PROVIDERS: PCP Internal Medicine; Visit Provider Physician Assistant | DX: M75.81 Other shoulder lesions, right shoulder (principal) | CPT/HCPCS: 99212; J1040 ==

== ENCOUNTER 2020-10-23 08:48 | Outpatient (RCR) | payer OTHER, SELFPAY | END 2021-05-09 14:04 | disposition home or self-care (01) | LOC: HO.PT 08:48 | PROVIDERS: PCP Internal Medicine; Visit Provider Physician Assistant | DX: M75.80 Other shoulder lesions, unspecified shoulder (principal) ==

== ENCOUNTER 2020-11-01 10:22 | Outpatient (REF) | payer OTHER, SELFPAY ==
--- NOTE | ~2020-11-01 | MR_ITS ---
EXAMINATION: MR SHOULDER WITHOUT CONTRAST, RIGHT CLINICAL INFORMATION: Right shoulder pain and decreased range of motion following an injury 7 months ago. COMPARISON: Right shoulder radiographs dated 09/19/2020. TECHNIQUE: MRI of the shoulder without contrast was performed on a high-field scanner. FINDINGS: ROTATOR CUFF: Mild supraspinatus tendinosis with minimal bursal surface fraying. No full-thickness rotator cuff tendon defect. No muscle atrophy or fatty infiltration. BICEPS: Normal. CORACOACROMIAL ARCH: The undersurface of the acromion is curved with no subacromial spur. Mild to moderate acromioclavicular osteoarthritis. Fluid within the subacromial-subdeltoid bursa, consistent with mild bursitis. LABRUM/CAPSULE: Minimal undersurface fraying of the superior labrum. No displaced labral tear. Intact joint capsule. GLENOHUMERAL JOINT/MARROW: Normal. MR/MR shoulder RT wo con IMPRESSION: 1. Mild supraspinatus tendinosis with minimal bursal surface fraying. 2. [id number] acromioclavicular osteoarthritis. 3. Mild subacromial-subdeltoid bursitis. 4. Possible minimal undersurface fraying of the superior labrum. No displaced labral tear.
== END 2020-11-01 10:23 | disposition home or self-care (01) ==
LOC: HO.MRI 10:22
PROVIDERS: PCP Internal Medicine; Visit Provider Physician Assistant
DX: M75.80 Other shoulder lesions, unspecified shoulder (principal)
CPT/HCPCS: 73221

== ENCOUNTER → 2020-11-07 15:44 | Outpatient (BNVA) | payer OTHER, SELFPAY | PROVIDERS: PCP Internal Medicine; Visit Provider Physician Assistant | DX: M75.81 Other shoulder lesions, right shoulder (principal); M79.18 Myalgia, other site; M25.511 Pain in right shoulder; J30.2 Other seasonal allergic rhinitis | CPT/HCPCS: 99212 ==

== ENCOUNTER 2021-05-10 15:48 | Emergency (ER) | payer OTHER, SELFPAY ==
--- NOTE | ~2021-05-10 | XR_ITS ---
EXAMINATION: XR CHEST CLINICAL INFORMATION: SOB. COMPARISON: Chest 04/20/2020 TECHNIQUE: Frontal view of the chest was obtained. FINDINGS: The lungs are well-expanded and clear. The heart size and pulmonary vascularity is normal. There is mild spondylosis dorsal spine. No lytic process seen. XR/XR chest 1V IMPRESSION: Unremarkable chest exam. Mild spondylosis of radames spine.
[2021-05-10 16:06] VITALS: BP 133/83; PULSE 77; RESP 19; TEMP 36.9; O2SAT 99; BMI 33.9
== END 2021-05-10 17:15 | disposition left against medical advice (07) ==
PROVIDERS: Emergency Provider Emergency Medicine Emergency Medical Services
DX: R07.9 Chest pain, unspecified (principal); J45.909 Unspecified asthma, uncomplicated; Z79.899 Other long term (current) drug therapy
CPT/HCPCS: 71045; 99282; 99283

== ENCOUNTER 2021-05-23 09:03 | Outpatient (REF) | payer OTHER, SELFPAY ==
--- NOTE | ~2021-05-23 | MR_ITS ---
EXAMINATION: MR LUMBAR SPINE WITHOUT AND WITH CONTRAST CLINICAL INFORMATION: Nerve sheath tumor. COMPARISON: Lumbar spine MRI 05/20/2020. TECHNIQUE: MRI of the lumbar spine was obtained using routine sequences without and with intravenous contrast. A total of 10 mL Gadavist was intravenously administered. FINDINGS: There are interval postoperative findings related to right-sided hemilaminectomy at the S1 level. There is significant asymmetric enlargement of the right-sided S1-S2 neural foramen demonstrating heterogeneous internal enhancement measuring up to 1.7 x 1.6 cm which appears similar compared with the prior exam accounting for differences in technique. The lumbar vertebral bodies maintain normal heights. There is mild retrolisthesis of L2 on L3 and L3 on L4. No significant disc height loss is seen. The distal spinal cord appears normal. The conus medullaris terminates normally at the L1 level. There is no significant narrowing of the spinal canal. No significant neural foraminal stenosis is seen. Facet arthropathy is noted at L3-L4 and L4-L5. Enhancement is seen within the right-sided posterior paraspinal soft tissues subjacent to the operative level. MR/MR lumbar spine wo/w con IMPRESSION: Abnormal enlargement and enhancement of the right-sided S1-S2 neural foramen. The overall degree of enhancement within the neural foramen appears similar compared with the 05/20/2020 however postsurgical changes are also present. Correlation with the surgical history is recommended to determine if this represents residual or recurrent disease or less likely posttreatment changes. No new abnormal enhancement is seen. No significant narrowing of the spinal canal or neural foramina.
== END 2021-05-23 09:04 | disposition home or self-care (01) ==
LOC: HO.MRI 09:03
PROVIDERS: Visit Provider Neurological Surgery
DX: M54.50 Low back pain, unspecified (principal)
CPT/HCPCS: 72158; A9585

== ENCOUNTER → 2021-06-18 13:06 | Outpatient (BNVA) | payer OTHER, SELFPAY | PROVIDERS: Visit Provider Nurse Practitioner Family | DX: M53.3 Sacrococcygeal disorders, not elsewhere classified (principal); M47.816 Spondylosis without myelopathy or radiculopathy, lumbar region; M54.16 Radiculopathy, lumbar region; Z98.890 Other specified postprocedural states | CPT/HCPCS: 99202 ==

== ENCOUNTER 2021-09-12 21:35 | Emergency (ER) | payer OTHER, SELFPAY ==
[2021-09-12 22:36] VITALS: BP 125/76; PULSE 64; RESP 18; TEMP 36.1; O2SAT 99; BMI 33.9
--- NOTE | 2021-09-12 23:46 | ED.BACK ---
HPI - Back Pain/Injury General Chief Complaint: Back Pain/Injury Stated Complaint: back and right shoulder pain Time Seen by Provider: 09/12/21 23:42 Source: patient and old records reviewed Mode of arrival: ambulatory Limitations: no limitations History of Present Illness MD elicited complaint: back pain Pertinent past history: prior back pain and back surgery Onset (ago): month(s) Timing: intermittent Severity: moderate Similar Symptoms Previously: Yes Quality: sharp Location: lumbar spine and right lower back Radiation: right leg below the knee Exacerbating factors: immobilization Relieving factors: movement and other (driving has been very painful for her) Context: other (hx of nerve sheath tumor with resection being managed pain has been worse pain management offering surgery no date set yet seen on 09/10) Associated symptoms: other (R foot much more pain when driving) Treatments prior to arrival: other (tried all OTC medications, on tizanidine does not treat her pain) Work related injury: No Related Data Previous Rx's Medication Instructions Recorded albuterol sulfate 90 mcg/actuation 2 puff inhalation Q4-6H PRN 04/20/20 aerosol inhaler shortness of breath or wheezing #8.5 grams tizanidine 2 mg tablet 2 mg PO BEDTIME PRN muscle 09/10/21 spasticity #30 tabs morphine 15 mg immediate release 15 mg PO TID PRN pain #10 tabs 09/13/21 tablet Allergies Allergy/AdvReac Type Severity Reaction Status Date / Time Seasonal Allergies Allergy Mild Runny Nose Verified 09/12/21 22:41 Review of Systems Review of Systems: Constitutional : No Weight loss, No Fever, No Chills, ENT/Mouth : No Hearing loss, No Ear Pain, No Nasal Congestion, No Sinus Pain, No Hoarseness, No sore throat, No Rhinorrhea, No Swallowing Difficulty Cardiovascular : No Chest Pain, No SOB Respiratory : No Cough, No Dyspnea Gastrointestinal : No Nausea, No Vomiting, No Diarrhea, No abdominal Pain, No Hematochezia, No Melena Genitourinary : No Dysuria, No Urinary Frequency, No Hematuria, No Urinary Incontinence, Musculoskeletal : positive back pain Skin : No Skin Lesions, No rash Neuro : No Weakness, No Numbness, No Paresthesias, no loss of bowel or bladder incontinence, no saddle anesthesia PMFSH Past Medical History Attestation statement: The following information was validated with the patient. 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 Oriented X3. No acute distress. Eyes: Pupils equal, round and reactive to light. ENT: Pharynx normal. Neck: Normal inspection. Neck supple. CVS: Normal heart rate and rhythm. Pulses normal. Respiratory: No respiratory distress. Breath sounds normal. Abdomen: Soft and nontender. Back: R sided pain lower lumbar Skin: Skin warm and dry. Normal skin color. Normal skin turgor. Extremities: No lower extremity edema. No calf ttp Neuro: Oriented X 3. No motor deficit. No sensory deficit. SILT inner thigh, DTR in RLE 2+ patella, pain with movements of right leg, SILT throughout 2+ DP pulses Course Course Course Narrative: feels better stable for DC MDM - Back Pain/Injury MDM Narrative Medical decision making narrative: 41 yo female with hx of chronic back pain s/p nerve sheath tumor s/p resection 2020 just saw pain management clinic on 09/10 plan for spinal cord stimulator no date set yet. She comes to the ED tonight c/o worsening pain and no relief from medications from pain management. No fevers, AC therapy, IVDA, no b/b incontinence, no saddle anesthesia. Will offer short course analgesia. She can follow up with her PCP. No red flags on visit. MRI from May 2021 showed no new abnormal enhancement and similar to May 2020 per reports Discharge Plan Discharge Clinical Impression: Lumbar radiculopathy Patient Disposition: Home, Self-Care Instructions: Lumbar Radiculopathy (ED) Additional Instructions: return to ED for any worsening symptoms or concerns please follow up with your doctor for further pain control Prescriptions: New morphine 15 mg tablet 15 mg PO TID PRN (Reason: pain) Qty: 10 0RF Rx Instructions: partial fill okay; Partial Fill upon patient request. No Action albuterol sulfate 90 mcg/actuation HFA aerosol inhaler 2 puff inhalation Q4-6H PRN (Reason: shortness of breath or wheezing) Qty: 8.5 0RF tizanidine 2 mg tablet 2 mg PO BEDTIME PRN (Reason: muscle spasticity) Qty: 30 0RF Rx Instructions: start with 1/2 tab as medication can be sedating
[2021-09-13] MEDS: diazePAM 2 MG TABLET PO (00:02)
[2021-09-13] MEDS: Morphine Sulfate Immed Release 15 MG TABLET PO (00:03)
== END 2021-09-13 01:02 | disposition home or self-care (01) ==
PROVIDERS: Emergency Provider Emergency Medicine; PCP Internal Medicine
DX: M54.16 Radiculopathy, lumbar region (principal); M54.50 Low back pain, unspecified; Z79.899 Other long term (current) drug therapy
CPT/HCPCS: 99283; 99284

== ENCOUNTER 2021-10-06 01:21 | Emergency (ER) | payer OTHER, SELFPAY ==
--- NOTE | ~2021-10-06 | XR_ITS ---
EXAMINATION: XR CHEST 2V, XR SHOULDER RT MIN 2V CLINICAL INFORMATION: Right-sided chest pain. Right shoulder pain. COMPARISON: Chest x-ray 05/10/2021 TECHNIQUE: PA and lateral radiographs of the chest were obtained. 3 views of the right shoulder. FINDINGS: No focal consolidation or mass. No pleural effusion or pneumothorax. Normal pulmonary vascularity. Normal heart size. Minimal multilevel degenerative disc disease of the spine with endplate sclerosis and anterior osteophytosis. No compression fracture seen. Glenohumeral and acromioclavicular joints are intact. No fracture or dislocation seen. XR/XR chest 2V IMPRESSION: Normal chest. No acute osseous abnormality of the right shoulder.
--- NOTE | ~2021-10-06 | XR_ITS ---
EXAMINATION: XR CHEST 2V, XR SHOULDER RT MIN 2V CLINICAL INFORMATION: Right-sided chest pain. Right shoulder pain. COMPARISON: Chest x-ray 05/10/2021 TECHNIQUE: PA and lateral radiographs of the chest were obtained. 3 views of the right shoulder. FINDINGS: No focal consolidation or mass. No pleural effusion or pneumothorax. Normal pulmonary vascularity. Normal heart size. Minimal multilevel degenerative disc disease of the spine with endplate sclerosis and anterior osteophytosis. No compression fracture seen. Glenohumeral and acromioclavicular joints are intact. No fracture or dislocation seen. XR/XR shoulder RT min 2V IMPRESSION: Normal chest. No acute osseous abnormality of the right shoulder.
[2021-10-06 01:34] VITALS: BP 119/75; PULSE 78; RESP 20; TEMP 36.9; O2SAT 98; BMI 34.2
[2021-10-06 04:14] VITALS: BP 136/55; PULSE 75; RESP 17; TEMP 36.7; O2SAT 98
--- NOTE | 2021-10-06 06:53 | ED_ITS ---
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 Denies any shortness of breath any other symptoms Onset (ago): hour(s) (5) Radiation: non-radiation Severity: moderate Quality: aching Pain Consistency: constant Exacerbating factors: movement Associated symptoms: denies other symptoms Treatments prior to arrival: none Related Data Previous Rx's Medication Instructions Recorded albuterol sulfate 90 mcg/actuation 2 puff inhalation Q4-6H PRN 04/20/20 aerosol inhaler shortness of breath or wheezing #8.5 grams tizanidine 2 mg tablet 2 mg PO BEDTIME PRN muscle 09/10/21 spasticity #30 tabs morphine 15 mg immediate release 15 mg PO TID PRN pain #10 tabs 09/13/21 tablet Allergies Allergy/AdvReac Type Severity Reaction Status Date / Time Seasonal Allergies Allergy Mild Runny Nose Verified 10/06/21 01:37 Review of Systems Constitutional: Constitutional: Reports no additional constitutional complaints Eyes: Eyes: Reports no additional eye complaints Cardiovascular: Cardiovascular: Reports no additional cardiovascular complaints Respiratory: Respiratory: Reports no additional respiratory complaints Gastrointestinal: Gastrointestinal: Reports no additional gastrointestinal complaints Neurologic: Reports Abnormal speech present [facility] Past Medical History Medical History Anxiety Asthma Chronic back pain Depression Social History Social History Alcohol intake: never Patient Tobacco Use Status: Never used Tobacco Advance Directives: No Advance Directives Information Provided: Yes Current occupational status: employed 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 Physical Exam ED Vital Signs: Vital Signs - 24 hr 10/06/21 01:34 10/06/21 04:14 Temperature 98.4 F 98.1 F Pulse Rate 78 75 Respiratory Rate 20 17 Blood Pressure 119/75 136/55 L Pulse Oximetry 98 98 Oxygen Delivery Method Room Air Room Air BMI result Body Mass Index 34.2 Const General: cooperative and no acute distress Orientation/consciousness: patient oriented x3 Limitations: no limitations HENMT Head: Yes normal to inspection General nose exam: Normal external nose present Face and sinus: Yes normal facial exam Mouth: Normal oral and palatal mucosa present Throat: Yes posterior oropharynx normal Neck Neck: Yes normal visual inspection and Yes full ROM Chest Chest palpation & inspection: normal inspection of the chest and other (rt chest wall tenderness) Resp Effort & Inspection: normal respiratory effort and able to speak in complete sentences Auscultation: clear to auscultation bilaterally Cardio Jugular venous distension: no JVD Rate: regular rate Rhythm: regular rhythm GI Inspection: Yes normal to inspection Palpation (GI): Soft to palpation, not firm, nontender and no guarding Auscultation: normal bowel sounds Skin General skin exam: no rashes or lesions noted and elasticity normal Rashes: no rashes Neuro General: patient oriented x3 Cranial nerves: Yes CN's II-XII intact bilaterally Speech: Abnormal speech present Coordination: [id number] test normal Extrem General: Yes full ROM Medical Decision Making Imaging Data Chest x-ray: Radiologist's impression: CLINICAL INFORMATION: Right-sided chest pain. Right shoulder pain. COMPARISON: Chest x-ray 05/10/2021 TECHNIQUE: PA and lateral radiographs of the chest were obtained. 3 views of the right shoulder. FINDINGS: No focal consolidation or mass. No pleural effusion or pneumothorax. Normal pulmonary vascularity. Normal heart size. Minimal multilevel degenerative disc disease of the spine with endplate sclerosis and anterior osteophytosis. No compression fracture seen. Glenohumeral and acromioclavicular joints are intact. No fracture or dislocation seen. XR/XR chest 2V IMPRESSION: Normal chest. No acute osseous abnormality of the right shoulder.? Dictated By: Marin Kincaid MD Signed By: <Electronically signed by Marin Kincaid MD in OV> 10/06/21 0713 Discharge Plan Discharge Clinical Impression: Strain of chest wall Patient Disposition: Home, Self-Care Prescriptions: No Action albuterol sulfate 90 mcg/actuation HFA aerosol inhaler 2 puff inhalation Q4-6H PRN (Reason: shortness of breath or wheezing) Qty: 8.5 0RF morphine 15 mg tablet 15 mg PO TID PRN (Reason: pain) Qty: 10 0RF Rx Instructions: partial fill okay; Partial Fill upon patient request. tizanidine 2 mg tablet 2 mg PO BEDTIME PRN (Reason: muscle spasticity) Qty: 30 0RF Rx Instructions: start with 1/2 tab as medication can be sedating Referrals: Regine Baird MD [Primary Care Provider] - 2 days Stand Alone Forms: Work/School Release Interventions: ED Discharge Assessment Last Done: 10/06/21 07:44 Discharge Date/Time: 10/06/21 07:45
[2021-10-06] MEDS: Ibuprofen 800 MG TABLET PO (07:20)
== END 2021-10-06 07:45 | disposition home or self-care (01) ==
PROVIDERS: Emergency Provider Emergency Medicine; PCP Internal Medicine
DX: S29.011A Strain of muscle and tendon of front wall of thorax, initial encounter (principal); M25.511 Pain in right shoulder; R07.89 Other chest pain; X58.XXXA Exposure to other specified factors, initial encounter; Y93.9 Activity, unspecified; Y92.9 Unspecified place or not applicable; Y99.9 Unspecified external cause status; Z79.899 Other long term (current) drug therapy
CPT/HCPCS: 71046; 73030; 99283

== ENCOUNTER 2021-11-04 07:19 | Outpatient (REF) | payer OTHER, SELFPAY | END 2021-11-04 07:20 | disposition home or self-care (01) | LOC: HO.HOSX 07:19 | PROVIDERS: Visit Provider Physician Assistant | DX: Z13.89 Encounter for screening for other disorder (principal) ==

== ENCOUNTER → 2021-11-19 10:55 | Outpatient (BNVA) | payer OTHER, SELFPAY | PROVIDERS: PCP Internal Medicine; Visit Provider Anesthesiology | DX: M96.1 Postlaminectomy syndrome, not elsewhere classified (principal); M53.3 Sacrococcygeal disorders, not elsewhere classified; M47.816 Spondylosis without myelopathy or radiculopathy, lumbar region; M54.16 Radiculopathy, lumbar region | CPT/HCPCS: 99212 ==

== ENCOUNTER 2021-11-27 11:58 | Day surgery (SDC) | payer OTHER, SELFPAY ==
[2021-11-21 13:14] VITALS: BMI 34.3
--- NOTE | 2021-11-26 09:17 | P.CONAN_ITS ---
Documented by User: Fatmata Salguero NP 12/11/21 12:45 HPI - Anesthesia Eval Consult details Narrative: 41yo F for Spinal Cord Stimulation Trial ? chronic opioids [facility] Active Problems Active Problems: All Active Problems (Updated 10/07/21 @ 00:02 by Shelley Paige) Post-laminectomy syndrome (Acute) Lumbar radiculopathy, right (Acute) Spondylosis of lumbar spine (Acute) S/P lumbar laminectomy (Acute) Sacroiliac joint dysfunction of right side (Acute) Myofascial pain dysfunction syndrome (Acute) Rotator cuff tendonitis (Acute) Past Medical History Medical History Anxiety Asthma Chronic back pain Depression Social History Social History Alcohol intake: never Patient Tobacco Use Status: Never used Tobacco Current occupational status: employed 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 Meds Allergies Allergy/AdvReac Type Severity Reaction Status Date / Time Seasonal Allergies Allergy Mild Runny Nose Verified 11/19/21 11:05 Exam Exam Date and Time: November 26, 2021 0917 Height,Weight and Vital Signs: Height 5 ft 6 in Weight 96.615 kg Assessment and Plan Assessment Anesthesia Assessment: Chart Reviewed Documented by User: Donald Wright MD 12/17/21 15:28 [facility] Past Medical History Medical History Anxiety Asthma Chronic back pain Depression Family History Family history of problems with anesthesia: No Surgical History History of Problems with Anesthesia: No Social History Social History Alcohol intake: never Patient Tobacco Use Status: Never used Tobacco Current occupational status: employed 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 Meds Allergies Allergy/AdvReac Type Severity Reaction Status Date / Time Seasonal Allergies Allergy Mild Runny Nose Verified 11/19/21 11:05 Exam Airway Mallampati Class: I TM Dist: >3cm Neck ROM: Full Loose/Missing/Broken Teeth: Yes Assessment and Plan Final Anesthetic Review Family History of Problems with Anesthesia: No History of Problems with Anesthesia: No NPO: Yes ASA Class: II Final Preanesthetic Review: No Changes in Pt Med Stat, Meds/Allgs Chart Reviewed, Consent Obtained/Reviewed and Anes Risks/Benef Reviewed Patient Risk: Low Procedure Risk: Low Anesthetic Plan Anesthetic Plan: MAC: Disposition: Standard PACU
--- NOTE | ~2021-11-27 | FL_ITS ---
EXAMINATION: XR FLUOROSCOPY WITH IMAGES CLINICAL INFORMATION: Spinal stimulator trial COMPARISON: Chest radiographs 10/06/2021; lumbar spine radiographs 03/10/2020. TECHNIQUE: Fluoroscopy performed by Dr. Avila Arzate. Fluoroscopy time: 4.4 minutes. Cumulative Dose: 75.2 mGy. DAP: 20.5 Gy-cm2. Images: 2. FINDINGS: There are 2 spinal stimulator electrodes seen ascending the posterior spinal canal. The electrode tips are at level of mid thoracic spine, estimated at mid T9. There is no visible kinking or defect of the leads. There is mild loss of height lower thoracic vertebral body. Degenerative changes are seen with multilevel vertebral spurring. FL/FL guidance in OR IMPRESSION: Fluoroscopy for pain management procedure.
[2021-11-27 12:27] VITALS: BP 126/72; PULSE 77; RESP 16; TEMP 36.6; O2SAT 96; BMI 33.9
[2021-11-27] MEDS: Lactated Ringers 1,000 ML 100 ML IVCONT (12:31)
[2021-11-27 12:33] LABS: UPreg QC Valid YES; Urine Pregnancy NEGATIVE (NEGATIVE)
--- NOTE | 2021-11-27 13:44 | P.OP_ITS ---
Operative Note Operative Note Date of Service: 11/27/21 Narrative: Tawnya is a 41 y.o. female? who came today into the operating room for trial of spinal cord stimulator [employer] for the treatment of post laminectomy syndrome. Preoperatively patient received cefasolin 2 g IV mg 30 minutes before the procedure. After obtaining informed consent the patient was brought to the operating room, she was positioned prone on operating table, [place] [employer] monitors were applied and patient was deeply sedated.? ?Time-out was performed delineating correct site, side, the nature of the procedure, patient's allergy, preoperative antibiotic if needed.? All operating room staff was participating in OR time-out procedure. Patient's entire back was prepped with Chloraprep twice and draped with full body fenestrated drape.? Sterilely draped C-arm was brought over operating field and square picture ofT12, L1 L2 vertebrae as were demonstrated on the screen.L1- L2 was chosen as entrance point . Attention FIRST? was concentrated on the right L1-L2 epidural interspace.? The location of the projection of the right pedicle center of theL3 vertebra was found on the skin using C-arm.? ?This location was injected with mixture of lidocaine 2% and ropivacaine 0.5% 5 cc.? After that 11 blade was used to make a jarrett on the skin.? 10 cm 14 gauge? introducer epidural needle was inserted through the jarrett and advanced to?L1- L2 epidural interspace.? The? advancement of the needle was performed on anterior posterior and lateral views.? Guitar wire and loss of resistance technique were used to locate epidural space.? When guitar wire was spread in the epidural fas hion, epidural lead was inserted through the Needle? and advanced to the posterior epidural space. at the approximate projection of the T12 vetebrae the lead met resistance and started to deviate at the midshaft in to the gutter on the left side. The epidural needle was withdrawn and long blue sheath introducer was inserted over the lead into the epidural space. This stiffened up the lead allow me to advance the lead strict at the midline. Lateral image demonstrated the lead in the posterior epidural space. After that the attention was concentrated on the left side of theL3 vertebra. Left L3 pedicle projection to the skinwas used as the starting point. It was injected with lidocaine 2% with ropivacaine 0.5% mixture. After that 11 blade was used to make a jarrett on the skin.? 10 cm 14 gauge? introducer epidural needle was inserted through the jarrett and advanced to? L1-L2 epidural interspace on the left.? The advancement of the needle was performed on anterior posterior and lateral views.? Guitar wire and loss of resistance technique were used to locate epidural space.?? When guitar wire was spread in the epidural fashion, epidural lead was inserted through the needle, is was taken across the right side introduced lead and advanced in the epidural space writes to the existing electrodes. It was stopped at the T9 posterior epidural space. At this moment the patient was awaken and stimulation started . The patient reported stiimulation corresponding to her pain in the right lower extremity. After that the needle and the blue sheath introducer were withdrawn with care taken not to dislodge epidural leads. anchoring devices were advanced over the leads to the level of the skin they were sutured to the skin with 0 silk sutures - 2 sutures per each device. fixation screws were tightened until 3 clicks were heard.Lateral image was obtained demonstrating both leads in posterior epidural space. Anterior posterior image demonstrated right-sided inserted lead strict at the midline and left-sided inserted lead to the right to the midline lead. Bacitracin ointments were applied to the levels of the needle entrance, sterie strips were applied to the right sided needle entrances,? and sterile dressing was applied. Impedance was checked and was satisfactory .? The patient was awake at this moment and epidural leads were connected to testing device.?The testing device was also taped to the patient's back.? The patient tolerated procedure well she was transferred to the [facility] and went to PACU for recovery.
--- NOTE | 2021-11-27 13:44 | P.HPSUR_ITS ---
Pre-Procedural Eval Section A Date of Service: 11/27/21 The patient is an INPATIENT: No Changes since office visit: Yes Patient answered all questions The History & Physical has been completed within 30 days and I have reviewed it.: No Section B Chief Complaint: postlaminectomy syndrome Details of Present Illness: As above Relevant Family History (Specify if Yes): No Relevant Social History: None Present Medications: see Short Stay Collaborative assessment Medical History: No relevant PMH History of Previous Operations: Relevant previous surgery/procedure and date(s) Allergies: Allergies Allergy/AdvReac Type Severity Reaction Status Date / Time Seasonal Allergies Allergy Mild Runny Nose Verified 11/19/21 11:05 Review of Systems Sugical H&P ROS: Negative: Constitution, Cardiovascular, Respiratory, Neurological, Psychiatric, Hem-Onc, Allergic/Immunologic, Gastrointestinal, Genitourinary, Musculoskeletal, Integumentary, Endocrine and Eyes/Ears/Nose/Thr oat Exam Surgical H&P Exam: Normal: HEENT, Normal: Heart, Normal: Lungs, Normal: Extremities, Normal: Abdomen, Normal: Skin and Normal: Neurological Plan Diagnosis/Plan: Unchanged I have reviewed the history and physical and performed a pertinent physical examination on my patient. No changes have occurred unless specified.
[2021-11-27 15:44] VITALS: BP 143/84; PULSE 62; RESP 22; TEMP 36.6; O2SAT 100
--- NOTE | 2021-11-27 15:58 | PM.OP ---
Brief Operative Note Date of Service: 11/27/21 Pre-op diagnosis: Postlaminectomy syndrome Post-op diagnosis: same Procedure: trial of [employer] spinal cord stimulator Implants: none permanent Surgeon: Avila Arzate MD Anesthesia: MAC Was an Sap Mobility Architect used for this Procedure?: No Estimated blood loss (mL): 1 Pathology: none sent Condition: stable Disposition: PACU
[2021-11-27 15:59] VITALS: BP 107/57; PULSE 60; RESP 20; O2SAT 98
[2021-11-27 16:14] VITALS: BP 151/55; PULSE 60; RESP 20; O2SAT 100
[2021-11-27 16:29] VITALS: BP 149/65; PULSE 57; RESP 20; TEMP 36.6; O2SAT 100
== END 2021-11-27 16:59 | disposition home or self-care (01) ==
PROVIDERS: Nurse Practitioner; PCP Internal Medicine; Visit Provider Anesthesiology
PROC: (CPT 63650; principal; 2021-11-27 12:40)
DX: M96.1 Postlaminectomy syndrome, not elsewhere classified (principal); G89.29 Other chronic pain; M54.50 Low back pain, unspecified; M53.3 Sacrococcygeal disorders, not elsewhere classified; M47.816 Spondylosis without myelopathy or radiculopathy, lumbar region; R25.2 Cramp and spasm; R20.2 Paresthesia of skin; J45.909 Unspecified asthma, uncomplicated; F32.A Depression, unspecified; F41.1 Generalized anxiety disorder
CPT/HCPCS: 63650 ×2; 81025; C1713; C1778; J0131; J0690; J2250; J2795

== ENCOUNTER → 2021-12-03 11:27 | Outpatient (BNVA) | payer OTHER, SELFPAY | PROVIDERS: PCP Internal Medicine; Visit Provider Anesthesiology | DX: M96.1 Postlaminectomy syndrome, not elsewhere classified (principal); M53.3 Sacrococcygeal disorders, not elsewhere classified; M47.816 Spondylosis without myelopathy or radiculopathy, lumbar region; M54.16 Radiculopathy, lumbar region; Z98.890 Other specified postprocedural states | CPT/HCPCS: 99212 ==

== ENCOUNTER 2021-12-24 15:31 | Emergency (ER) | payer OTHER, SELFPAY ==
--- NOTE | ~2021-12-24 | XR_ITS ---
EXAMINATION: XR CHEST CLINICAL INFORMATION: Cough. COMPARISON: 10/06/2021 chest radiographs. TECHNIQUE: Frontal view of the chest was obtained. FINDINGS: No significant abnormality is noted involving the heart, lungs, mediastinum, bony thorax or soft tissues. XR/XR chest 1V IMPRESSION: No acute cardiopulmonary process.
[2021-12-24 16:42] VITALS: BP 145/79; PULSE 84; RESP 16; TEMP 36.6; O2SAT 99; BMI 33.9
--- NOTE | 2021-12-24 17:13 | ED_ITS ---
HPI - URI/Sore Throat General Chief Complaint: Upper Respiratory Symptoms Stated Complaint: Congestion Cough Light Sensitivity Time Seen by Provider: 12/24/21 16:59 Source: patient Mode of arrival: ambulatory Limitations: no limitations History of Present Illness HPI Narrative: 41-year-old female here with nasal congestion, dry cough, malaise, frontal HALL, sinus pressure/pain, nasal congestion x 5 days. The patient started azithromycin 3 days ago with no improvement of symptoms. No fevers, chills, shortness of breath, chest pain, neck pain or stiffness, body aches, vomiting, diarrhea. Related Data Previous Rx's Medication Instructions Recorded albuterol sulfate 90 mcg/actuation 2 puff inhalation Q4-6H PRN 04/20/20 aerosol inhaler shortness of breath or wheezing #8.5 grams tizanidine 2 mg tablet 2 mg PO BEDTIME PRN muscle 09/10/21 spasticity #30 tabs morphine 15 mg immediate release 15 mg PO TID PRN pain #10 tabs 09/13/21 tablet cephalexin 500 mg tablet 1,000 mg PO Q8H 7 days #42 tabs 11/27/21 albuterol sulfate 90 mcg/actuation 2 puff inhalation QID PRN 12/24/21 aerosol inhaler shortness of breath or wheezing #8.5 grams amoxicillin 875 mg-potassium 1 tab PO BID #14 tabs 12/24/21 clavulanate 125 mg tablet prednisone 20 mg tablet 40 mg PO DAILY #10 tabs 12/24/21 Allergies Allergy/AdvReac Type Severity Reaction Status Date / Time Seasonal Allergies Allergy Mild Runny Nose Verified 11/19/21 11:05 Review of Systems Review of Systems: Yes all other systems are reviewed and are negative Constitutional: Constitutional: Reports no additional constitutional complaints, Denies body ache(s), Denies chills, Denies fever(s), Reports headache(s), Reports malaise and Denies weakness Eyes: Eyes: Reports no additional eye complaints and Denies change in vision ENT: Reports system reviewed and no additional complaints, except as documented, Denies dizziness, Reports headache(s), Reports nasal congestion, Denies nasal discharge, Denies neck pain, Reports sinus pain and Reports sinus pressure Cardiovascular: Cardiovascular: Reports no additional cardiovascular complaints, Denies chest pain, Denies leg edema and Denies dyspnea Respiratory: Respiratory: Reports no additional respiratory complaints, Reports cough and Denies dyspnea Gastrointestinal: Gastrointestinal: Reports no additional gastrointestinal complaints, Denies abdominal pain, Denies diarrhea, Denies nausea and Denies vomiting Genitourinary: Genitourinary: Reports no additional female genitourinary complaints and Denies urinary incontinence Musculoskeletal: Musculoskeletal: Reports no additional musculoskeletal comp laints, Denies back pain, Denies arthralgias, Denies joint swelling, Denies neck pain, Denies numbness and Denies tingling Integumentary/Breasts: Skin/Breast: Reports system reviewed and no additional complaints, except as docu and Denies rash Neurologic: Reports system reviewed and no additional complaints, except as documented, Denies Abnormal speech present, Denies dizziness, Reports headache(s), Denies numbness, Denies tingling and Denies weakness PMFSH Past Medical History Attestation statement: The following information was validated with the patient. 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 Exam Vital Signs: Vital Signs: Last Vital Signs Temp 97.9 F 12/24/21 16:42 Pulse 84 12/24/21 16:42 Resp 16 12/24/21 16:42 BP 145/79 H 12/24/21 16:42 Pulse Ox 99 12/24/21 16:42 O2 Del Method 12/24/21 16:42 BMI result Body Mass Index 33.9 Const: General: cooperative, healthy appearing, comfortable and no acute distr ess Orientation/consciousness: patient oriented x3 Limitations: no limitations HEENT: Head: Yes normal to inspection Ears: hearing grossly normal bilaterally and TM's normal bilaterally General nose exam: Normal external nose present Face and sinus: Yes normal facial exam and Yes Facial tenderness on exam of face and sinuses (frontal/maxillary sinuses TTP) Mouth: Normal oral and palatal mucosa present Throat: Yes posterior oropharynx normal, Yes tonsils normal and Yes uvula midline Eyes: General: appearance normal, both eyes and all related structures Pupils: Equal, round and reactive pupils present Neck: Neck: Yes normal visual inspection, Yes full ROM and Yes no lymphadenopathy Chest: Chest palpation & inspection: normal inspection of the chest Resp: Effort & Inspection: normal respiratory effort Auscultation: clear to auscultation bilaterally Cardio: Rate: regular rate Rhythm: regular rhythm Peripheral pulses: Peripheral pulses 2+ throughout GI: Inspection: Yes normal to inspection Palpation (GI): Soft to palpation and nontender Auscultation: normal bowel sounds Back/Spine/Pelvis: Thoracic/Lumbar Spine: thoracic and lumbar spine normal to inspection Skin: General skin exam: no rashes or lesions noted Neuro: General: patient oriented x3, no focal motor deficits and normal sensation to monofilament Cranial nerves: Yes Equal, round and reactive pupils present Cognition (Neuro): normal cognition Speech: No Abnormal speech present Gait exam (Neuro): Normal gait present Motor exam (neuro): 5/5 motor strength present throughout Extrem: General: Yes normal to inspection MDM - URI/Sore Throat MDM Narrative Medical decision making narrative: 41 yo female here with complaints of 5 days of sinus pressure, sinus pain, frontal headache, nasal congestion, dry cough, malaise, body aches. Patient on Z-Candido with continued symptoms. Exam is consistent with sinusitis. Patient will be placed on Augmentin given prednisone course as well as refill for her albuterol. Reviewed worrisome signs symptoms of when to return to the emergency room. Comfortable discharge home. Medical Records Attestation: I reviewed the patient's medical records. Lab Data Attestation: I reviewed the patient's lab results. Labs: Lab Results 12/24/21 Range/Units 16:47 Influenza Type A (PCR) NEGATIVE (Negative) Influenza Type B (PCR) NEGATIVE (Negative) RSV RNA Qual (PCR) NEGATIVE (Negative) SARS-CoV-2 RNA (RT-PCR) NEGATIVE (Negative) Imaging Data Chest x-ray: Attestation: I personally reviewed and interpreted this imaging study as follows: Radiologist's impression: [address] [address] XRay Report Signed Patient: Samira Werner MR#: [id number] : 1980 Acct:[id number] Age/Sex: 41 / F ADM Date: 12/24/21 Loc: HO.ED Attending Dr: Ordering Physician: Bhavna ED Physician Date of Service: 12/24/21 Procedure(s): XR chest 1V Accession Number(s): [id number] cc: Generic ED Physician~ EXAMINATION: XR CHEST CLINICAL INFORMATION: Cough. COMPARISON: 10/06/2021 chest radiographs. TECHNIQUE: Frontal view of the chest was obtained. FINDINGS: No significant abnormality is noted involving the heart, lungs, mediastinum, bony thorax or soft tissues. XR/XR chest 1V IMPRESSION: No acute cardiopulmonary process. ? Discharge Plan Discharge Clinical Impression: Viral infection, Sinusitis Patient Disposition: Home, Self-Care Instructions: Sinusitis (ED), Viral Syndrome (ED) Additional Instructions: Testing for flu, COVID and RSV are negative. Chest x-ray shows no signs of pneumonia. Stop taking your azithromycin. Starting Augmentin. Use your inhaler as needed. Increase fluids, rest. Take Motrin or Tylenol for pain or fever as needed. Prescriptions: New amoxicillin-pot clavulanate 875-125 mg tablet 1 tab PO BID Qty: 14 0RF prednisone 20 mg tablet 40 mg PO DAILY Qty: 10 0RF albuterol sulfate 90 mcg/actuation HFA aerosol inhaler 2 puff inhalation QID PRN (Reason: shortness of breath or wheezing) Qty: 8.5 0RF No Action cephalexin 500 mg tablet 1,000 mg PO Q8H 7 Days Qty: 42 0RF Rx Instructions: take OTC probiotics 25 bili in cultures in between the doses of the antibiotics albuterol sulfate 90 mcg/actuation HFA aerosol inhaler 2 puff inhalation Q4-6H PRN (Reason: shortness of breath or wheezing) Qty: 8.5 0RF morphine 15 mg tablet 15 mg PO TID PRN (Reason: pain) Qty: 10 0RF Rx Instructions: partial fill okay; Partial Fill upon patient request. tizanidine 2 mg tablet 2 mg PO BEDTIME PRN (Reason: muscle spasticity) Qty: 30 0RF Rx Instructions: start with 1/2 tab as medication can be sedating Referrals: Regine Baird MD [Primary Care Provider] - 1 week (as needed) Stand Alone Forms: Work/School Release Interventions: ED Discharge Assessment Last Done: 12/24/21 18:10 Discharge Date/Time: 12/24/21 18:11
[2021-12-24 17:33] LABS: Influenza A PCR NEGATIVE (Negative); Influenza B PCR NEGATIVE (Negative); Resp Syncy Virus RNA Qual PCR NEGATIVE (Negative); SARS COV2 PCR INHOUSE NEGATIVE (Negative)
== END 2021-12-24 18:11 | disposition home or self-care (01) ==
PROVIDERS: Emergency Provider Emergency Medicine; PCP Internal Medicine
DX: B34.9 Viral infection, unspecified (principal); R05.9 Cough, unspecified; M79.10 Myalgia, unspecified site; J32.9 Chronic sinusitis, unspecified; Z20.822 Contact with and (suspected) exposure to COVID-19; Z79.899 Other long term (current) drug therapy
CPT/HCPCS: 0241U; 71045; 99282; 99283

== ENCOUNTER → 2022-02-09 16:35 | Outpatient (BNVA) | payer OTHER, SELFPAY | PROVIDERS: PCP Internal Medicine; Visit Provider Anesthesiology | DX: M96.1 Postlaminectomy syndrome, not elsewhere classified (principal); M53.3 Sacrococcygeal disorders, not elsewhere classified; M47.816 Spondylosis without myelopathy or radiculopathy, lumbar region; M54.16 Radiculopathy, lumbar region | CPT/HCPCS: 99212 ==

== ENCOUNTER 2022-02-28 08:24 | Emergency (ER) | payer OTHER, SELFPAY ==
[2022-02-28 08:35] VITALS: BP 124/79; PULSE 88; RESP 16; TEMP 36.1; O2SAT 99; BMI 34.1
--- NOTE | 2022-02-28 08:49 | ED.BACK ---
HPI - Back Pain/Injury General Chief Complaint: Back Pain/Injury Stated Complaint: lower back pain Time Seen by Provider: 02/28/22 08:49 Source: patient Mode of arrival: ambulatory Limitations: no limitations History of Present Illness HPI Narrative: 41 yo female with history of chronic back pain followed by Dr. Arzate, lumbar radiculopathy s/p lumbar laminectomy, nerve sheath tumor s/p resection who presents to the ER with worsening right lower back pain that started yesterday after she was walking fast. She felt the muscles in her right low back and buttock tighten and spasm yesterday while walking and it has been worsening since. She follows with a surgeon in [facility] for re-evaluation of possible tumor regrowth with a MRI scheduled in 3 days. She denies any bowel or bladder incontinence, no LE weakness just shooting pains down the right leg. MD elicited complaint: back pain Pertinent past history: prior back pain Onset (ago): day(s) (1) Timing: progressively worsening Severity: moderate Pain scale (0-10): 7 Similar Symptoms Previously: Yes Quality: aching and spasming Location: right lower back Radiation: buttocks and right upper leg Exacerbating factors: movement and walking Relieving factors: immobilization and supine Associated symptoms: difficulty walking, parasthesias, arthralgias and myalgias Treatments prior to arrival: other medications (gabapentin which makes her sleepy) Work related injury: No Related Data Home Medications Medication Instructions Recorded Confirmed fluticasone 100 mcg-salmeterol 50 1 ea inhalation BID 02/09/22 mcg/dose blistr powdr for inhalation (Advair Diskus) valacyclovir 500 mg tablet 500 mg PO DAILY 02/09/22 Previous Rx's Medication Instructions Recorded albuterol sulfate 90 mcg/actuation 2 puff inhalation Q4-6H PRN 04/20/20 aerosol inhaler shortness of breath or wheezing #8.5 grams tizanidine 2 mg tablet 2 mg PO BEDTIME PRN muscle 09/10/21 spasticity #30 tabs morphine 15 mg immediate release 15 mg PO TID PRN pain #10 tabs 09/13/21 tablet cephalexin 500 mg tablet 1,000 mg PO Q8H 7 days #42 tabs 11/27/21 albuterol sulfate 90 mcg/actuation 2 puff inhalation QID PRN 12/24/21 aerosol inhaler shortness of breath or wheezing #8.5 grams amoxicillin 875 mg-potassium 1 tab PO BID #14 tabs 12/24/21 clavulanate 125 mg tablet prednisone 20 mg tablet 40 mg PO DAILY #10 tabs 12/24/21 acetaminophen 650 mg 650 mg PO Q8H PRN pain #30 tabs 02/28/22 tablet,extended release (Tylenol Arthritis Pain) cyclobenzaprine 10 mg tablet 10 mg PO TID PRN muscle spasm #14 02/28/22 tabs oxycodone 5 mg tablet 5 mg PO Q6H PRN severe pain (scale 02/28/22 score 7-10) #8 tabs prednisone 20 mg tablet 40 mg PO DAILY #10 tabs 02/28/22 Allergies Allergy/AdvReac Type Severity Reaction Status Date / Time Seasonal Allergies Allergy Mild Runny Nose Verified 02/09/22 16:36 Review of Systems Review of Systems: Constitutional: No Fever, No Chills Cardiovascular: No Chest Pain, No SOB Gastrointestinal: No Nausea, No Vomiting, No Diarrhea, No abdominal Pain, No Hematochezia, No Melena Genitourinary: No Dysuria, No Urinary Frequency, No Hematuria, No incontinence or retention Musculoskeletal: + joint pain, + Myalgias Skin: No Skin Lesions, No rash Neuro: No Weakness, + Numbness, No Dizziness, No Headache Psych: + Anxiety/Panic Heme/Lymph: No Bruising, No Lymphadenopathy PMFSH Past Medical History Medical History Anxiety Asthma Chronic back pain Depression Social History Social History Alcohol intake: never Patient Tobacco Use Status: Never used Tobacco Advance Directives: No Advance Directives Information Provided: No Current occupational status: employed 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 Oriented X3. No acute distress. HEENT: normal external inspection Neck: Normal inspection. Neck supple. CVS: Normal heart rate and rhythm. Pulses normal. Respiratory: No respiratory distress. Skin: Skin warm and dry. Normal skin color. Normal skin turgor. No rashes. Back: soft tissue tenderness of the right lumar area and SI joint, negative straight leg raise test. no midline tenderness. Extremities: No lower extremity edema. Neuro: Oriented X 3. No motor deficit. No sensory deficit. Course Course Course Narrative: 41-year-old female presenting with acute on chronic low back pain. 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 She has an MRI scheduled for this week. She reports worsening pain since yesterday after walking fast. Patient is described as muscle pulling and tightening, spasming. She has no red flag symptoms of low back pain. No need for imaging today. She has soft tissue tenderness consistent with muscle strain and spasm. Will treat accordingly. Will have her follow-up with her surgeon and outpatient providers early this week. Given return precautions. Work note provided. Stable for discharge home. Medications Administered Discontinued Medications Generic Name Dose Route Start Last Admin Trade Name Freq PRN Reason Stop Dose Admin Acetaminophen 975 mg 02/28/22 09:01 02/28/22 09:22 Acetaminophen 325 Mg Tablet PO 02/28/22 09:02 975 mg ONCE ONE Administration Ketorolac Tromethamine 30 mg 02/28/22 09:01 02/28/22 09:23 Ketorolac Tromethamine 30 Mg/Ml Vial IM 02/28/22 09:02 30 mg ONCE ONE Administration Prednisone 60 mg 02/28/22 09:01 02/28/22 09:23 Prednisone 20 Mg Tablet PO 02/28/22 09:02 60 mg ONCE ONE Administration Discharge Plan Discharge Clinical Impression: Strain of lumbar region Patient Disposition: Home, Self-Care Instructions: Low Back Strain (ED), Lower Back Exercises (ED) Additional Instructions: No bending, lifting or twisting. Use ice several times per day for 20 minutes at a time for the next 48 hours and then change to heat. Take medications as prescribed to help with pain and discomfort. Follow up with your Primary Care Doctor this week. If your pain worsens, if you develop new numbness, tingling, weakness, loss of function or incontinence call 911 or come back to the ER right away for evaluation. Prescriptions: New cyclobenzaprine 10 mg tablet 10 mg PO TID PRN (Reason: muscle spasm) Qty: 14 0RF prednisone 20 mg tablet 40 mg PO DAILY Qty: 10 0RF acetaminophen [Tylenol Arthritis Pain] 650 mg tablet extended release 650 mg PO Q8H PRN (Reason: pain) Qty: 30 0RF oxycodone 5 mg tablet 5 mg PO Q6H PRN (Reason: severe pain (scale score 7-10)) Qty: 8 0RF Rx Instructions: Partial Fill upon patient request. No Action cephalexin 500 mg tablet 1,000 mg PO Q8H 7 Days Qty: 42 0RF Rx Instructions: take OTC probiotics 25 bili in cultures in between the doses of the antibiotics albuterol sulfate 90 mcg/actuation HFA aerosol inhaler 2 puff inhalation Q4-6H PRN (Reason: shortness of breath or wheezing) Qty: 8.5 0RF morphine 15 mg tablet 15 mg PO TID PRN (Reason: pain) Qty: 10 0RF Rx Instructions: partial fill okay; Partial Fill upon patient request. amoxicillin-pot clavulanate 875-125 mg tablet 1 tab PO BID Qty: 14 0RF prednisone 20 mg tablet 40 mg PO DAILY Qty: 10 0RF albuterol sulfate 90 mcg/actuation HFA aerosol inhaler 2 puff inhalation QID PRN (Reason: shortness of breath or wheezing) Qty: 8.5 0RF valacyclovir 500 mg tablet 500 mg PO DAILY fluticasone propion-salmeterol [Advair Diskus] 100-50 mcg/dose blister with device 1 ea inhalation BID tizanidine 2 mg tablet 2 mg PO BEDTIME PRN (Reason: muscle spasticity) Qty: 30 0RF Rx Instructions: start with 1/2 tab as medication can be sedating Referrals: Regine Baird MD [Primary Care Provider] - Stand Alone Forms: Work/School Release Interventions: ED Discharge Assessment Last Done: 02/28/22 09:32 Discharge Date/Time: 02/28/22 09:32
[2022-02-28] MEDS: Acetaminophen 325 MG TABLET 975 MG PO (09:22)
[2022-02-28] MEDS: Ketorolac Tromethamine 30 MG/ML VIAL IM (09:23)
[2022-02-28] MEDS: predniSONE 20 MG TABLET 60 MG PO (09:23)
== END 2022-02-28 09:32 | disposition home or self-care (01) ==
PROVIDERS: Emergency Provider Emergency Medicine; PCP Internal Medicine
DX: S39.012A Strain of muscle, fascia and tendon of lower back, initial encounter (principal); X58.XXXA Exposure to other specified factors, initial encounter; M96.1 Postlaminectomy syndrome, not elsewhere classified; M53.3 Sacrococcygeal disorders, not elsewhere classified; Y93.9 Activity, unspecified; Y92.9 Unspecified place or not applicable; Y99.9 Unspecified external cause status
CPT/HCPCS: 96372; 99283; 99284; J1885

== ENCOUNTER 2022-03-03 13:22 | Outpatient (REF) | payer OTHER, SELFPAY ==
--- NOTE | ~2022-03-03 | MR_ITS ---
EXAMINATION: MR LUMBAR SPINE WITHOUT AND WITH CONTRAST CLINICAL INFORMATION: Lower back pain with history of schwannoma. COMPARISON: MRI scan of the lumbar spine 05/23/2021. TECHNIQUE: MRI of the lumbar spine was obtained using routine sequences with and without contrast. Intravenous contrast: Gadavist 10 mL FINDINGS: VERTEBRAL BODIES AND PARASPINAL STRUCTURES: There is anatomic alignment of the vertebral bodies. There is mild loss of signal from intervertebral disc at L5-S1. There is narrowing of intervertebral disc height at T11-T12. There are mild degenerative endplate contour changes with minimal edematous signal at L2-L3 and T11-T12. Vertebral body heights are maintained and no fractures are demonstrated. The study redemonstrates the sequelae of the surgery on the right at S1. The foraminal segment of the right S1 nerve root is enlarged and measures 1.5 x 1.4 cm, decreased from 1.6 x 1.5 cm. It demonstrates moderate, slightly heterogenous enhancement following intravenous contrast administration. There is an area of increased T1 and T2 signal in the body of T12 consistent with a hemangioma. There is no abnormal osseous enhancement and overall, marrow signal is homogenous. The visualized retroperitoneal and pelvic structures are unremarkable. CONUS MEDULLARIS AND CAUDA EQUINA: Normal, terminating at the level of L1. The lower thoracic spinal cord has normal signal and there is no abnormal enhancement. The other cauda equina nerve roots and filum terminale appear normal.. SPINAL LEVELS: T12-L1: The facet joints appear normal bilaterally. Disc contour is normal. There is no central stenosis or foraminal narrowing. L1-L2: There is mild bilateral facet arthropathy. There is a shallow posterior disc protrusion but there is no central stenosis and the neural foramina are patent bilaterally. L2-L3: There is mild bilateral facet arthropathy. Disc contour is normal. There is no central stenosis or foraminal narrowing. L3-L4: There is moderate bilateral facet arthropathy with ligamenta flava hypertrophy. There is a mild diffuse disc bulge but there is no central stenosis. There are small foraminal disc protrusions without definite exiting nerve root impingement. L4-L5: There is moderate bilateral facet arthropathy with ligamenta flava hypertrophy. Disc contour is normal. There is no central stenosis or foraminal narrowing. L5-S1: There is mild bilateral facet arthropathy. There are sequelae of a right hemilaminectomy. There is mild enhancement along the region of surgery dorsally. There is a small posterior disc protrusion extending into the inferior neural foramina bilaterally without exiting nerve root impingement. MR/MR lumbar spine wo/w con IMPRESSION: 1. The foraminal segment of the right S1 nerve root is enlarged and demonstrates enhancement, consistent with a schwannoma, which appears slightly decreased in size compared to prior imaging. 2. There are sequelae of surgery dorsally on the right at L5-S1. There are small foraminal disc protrusions without exiting nerve root impingement. 3. There are mild spondylitic and facet arthropathic changes at multiple levels as described above. There is no central stenosis or foraminal nerve root impingement.
== END 2022-03-03 13:23 | disposition home or self-care (01) ==
LOC: HO.MRI 13:22
PROVIDERS: Visit Provider Anesthesiology
DX: D36.16 Benign neoplasm of peripheral nerves and autonomic nervous system of pelvis (principal); M47.816 Spondylosis without myelopathy or radiculopathy, lumbar region; M54.16 Radiculopathy, lumbar region; M96.1 Postlaminectomy syndrome, not elsewhere classified
CPT/HCPCS: 72158; A9585

== ENCOUNTER 2022-03-12 10:31 | Day surgery (SDC) | payer OTHER, SELFPAY ==
[2022-03-05 08:49] VITALS: BMI 34.0
--- NOTE | ~2022-03-12 | FL_ITS ---
EXAMINATION: FL GUIDANCE IN OR XR THORACIC SPINE 2V XR LUMBAR SPINE 2-3V CLINICAL INFORMATION: Intraoperative fluoroscopy for spinal implant placement Reason for Exam spinal pain from implant COMPARISON: MRI lumbar spine dated 05/20/2020 FINDINGS: Intraoperative fluoroscopy provided for Dr. Arzate on 03/12/2022. 3 fluoroscopic images are submitted for review. Spinal neurostimulator projects over the dorsal aspect of the central canal at the level of T10-T11. Fluoroscopy time: 7.5 minutes. Dose area product: 34.7Gy-cm2 AP and lateral views of the thoracic spine redemonstrate the spinal neural stimulator projecting over the T11-T12 vertebral bodies in the expected location of the dorsal central canal. Appearance/location has not changed since the intraoperative radiographs. Small endplate ossified present throughout the lumbar spine. Vertebral body heights maintained. AP and lateral views of the lumbar spine show the generator projecting over the right buttock, with leads entering the central canal at the level of L1-L2. Minimal dextro convex lumbar scoliosis. Vertebral body heights maintained. Bulky hypertrophic facet arthropathy from L3 through S1. Moderate left sacroiliac arthrosis. FL/FL guidance in OR IMPRESSION: * Intraoperative fluoroscopy provided for Dr Arzate on 03/12/2022. Please see operative report. * Spinal neurostimulator in place. The spinal neurostimulator projects over the T11-T12 vertebral bodies in the expected location of the central canal.
[2022-03-12 10:45] LABS: UPreg QC Valid YES; Urine Pregnancy NEGATIVE (NEGATIVE)
[2022-03-12 10:49] VITALS: BP 131/75; PULSE 89; RESP 16; TEMP 37.1; O2SAT 98
[2022-03-12 11:18] VITALS: PULSE 81; RESP 16; O2SAT 98
--- NOTE | 2022-03-12 11:18 | MHC.SHP ---
Pre-Procedural Eval Section A Date of Service: 03/12/22 The patient is an INPATIENT: No Changes since office visit: Yes Patient answered all questions The History & Physical has been completed within 30 days and I have reviewed it.: No Section B Chief Complaint: Postlaminectomy syndrome, not elsewhere classified Details of Present Illness: as above Relevant Family History (Specify if Yes): No Relevant Social History: None Present Medications: see Short Stay Collaborative assessment Medical History: No relevant PMH History of Previous Operations: Relevant previous surgery/procedure and date(s) Allergies: Allergies Allergy/AdvReac Type Severity Reaction Status Date / Time Seasonal Allergies Allergy Mild Runny Nose Verified 03/12/22 10:36 Review of Systems Sugical H&P ROS: Negative: Constitution, Cardiovascular, Respiratory, Neurological, Psychiatric, Hem-Onc, Allergic/Immunologic, Gastrointestinal, Genitourinary, Musculoskeletal, Integumentary, Endocrine and Eyes/Ears/Nose/Throat Exam Surgical H&P Exam: Normal: HEENT, Normal: Heart, Normal: Lungs, Normal: Extremities, Normal: Abdomen, Normal: Skin and Normal: Neurological Plan Diagnosis/Plan: Unchanged I have reviewed the history and physical and performed a pertinent physical examination on my patient. No changes have occurred unless specified. Time Spent With Patient Time: ___ minutes.
[2022-03-12] MEDS: Albuterol/Iprat 2.5/0.5MG 3 ML AMPUL.NEB INHALE (11:20)
[2022-03-12] MEDS: Lactated Ringers 1,000 ML 50 ML IVCONT (11:20)
--- NOTE | 2022-03-12 11:21 | PC.NURSE ---
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 has had this since prior to covid starting. Original Note: pt with congested, productive cough with clear thickish sputum. anesthesia evaluated and duoneb given by resp. ok'd to proceed. ls clear throughout, no resp distress.
--- NOTE | 2022-03-12 11:30 | P.CONAN_ITS ---
ON LICENSE OF [facility] Active Problems Active Problems: All Active Problems (Updated 03/05/22 @ 08:36 by Samira Drummond RN) Rotator cuff tendonitis (Acute) Myofascial pain dysfunction syndrome (Acute) Sacroiliac joint dysfunction of right side (Acute) S/P lumbar laminectomy (Acute) Spondylosis of lumbar spine (Acute) Lumbar radiculopathy, right (Acute) Post-laminectomy syndrome (Acute) Schwannoma of nerve of pelvis (Acute) Past Medical History Medical History Anxiety Asthma Chronic back pain Depression S/P placement of nerve stimulator Family History Family history of problems with anesthesia: No Surgical History Surgical History History of lumbar laminectomy History of Problems with Anesthesia: No Social History Social History Alcohol intake: never Patient Tobacco Use Status: Never used Tobacco Use of substances other than those prescribed or required for medical reasons: No Are you DNR?: No Advance Directives: No Advance Directives Information Provided: Yes Current occupational status: employed 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/[employer]ATIVE Meds Allergies Allergy/AdvReac Type Severity Reaction Status Date / Time Seasonal Allergies Allergy Mild Runny Nose Verified 03/12/22 10:36 Active Medications: Current Medications Lactated Ringer's (Lr) 1,000 mls @ 50 mls/hr IVCONT .Q20H ALBERTO Last Admin: 03/12/22 11:20 Dose: 50 mls/hr Ondansetron HCl (Ondansetron Hcl 4 Mg/2 Ml Vial) 4 mg IVPUSH ONCE PRN PRN Reason: Nausea and Vomiting Home Medications Medication Instructions Recorded Confirmed Last Taken Type fluticasone 100 mcg-salmeterol 50 1 ea inhalation BID 02/09/22 03/12/22 Unknown History mcg/dose blistr powdr for inhalation (Advair Diskus) valacyclovir 500 mg tablet 500 mg PO DAILY 02/09/22 03/12/22 Unknown History Exam Exam Date and Time: March 12, 2022 1130 Height,Weight and Vital Signs: Height 5 ft 6 in Weight 95.708 kg Last Vital Signs Temp 98.7 F 03/12/22 10:49 Pulse 81 03/12/22 11:18 Resp 16 03/12/22 11:18 BP 131/75 03/12/22 10:49 Pulse Ox 98 03/12/22 10:49 O2 Del Method 03/12/22 10:49 Pertinent Lab Results Pertinent Lab Results: Laboratory Tests 03/12/22 10:40 Urine Test NEGATIVE Airway Mallampati Class: II TM Dist: >3cm Neck ROM: Full Heart: rrr Lungs: clear Assessment and Plan Final Anesthetic Review Family History of Problems with Anesthesia: No History of Problems with Anesthesia: No NPO: Yes ASA Class: II Final Preanesthetic Review: No Changes in Pt Med Stat, Meds/Allgs Chart Reviewed, Consent Obtained/Reviewed and Anes Risks/Benef Reviewed Patient Risk: Intermediate Procedure Risk: Low Anesthetic Plan Anesthetic Plan: MAC: Disposition: Standard PACU
--- NOTE | 2022-03-12 14:16 | PM.OP ---
Brief Operative Note Date of Service: 03/12/22 Pre-op diagnosis: postlaminectomy syndrome Post-op diagnosis: same Procedure: implantation of [employer] SCS. Implants: [employer] Alpha battery and two epidural stimulation leads. Surgeon: Avila Arzate MD Anesthesia: MAC Was an Supervisor Tellers used for this Procedure?: No Estimated blood loss (mL): 25 Pathology: none sent Condition: stable Disposition: PACU
[2022-03-12 14:20] VITALS: BP 131/88; PULSE 104; RESP 18; TEMP 36.4; O2SAT 96
[2022-03-12 14:25] VITALS: BP 141/84; PULSE 101; RESP 18; O2SAT 96
[2022-03-12 14:35] VITALS: BP 136/82; PULSE 100; RESP 17; O2SAT 98
[2022-03-12] MEDS: Acetaminophen 325 MG TABLET 650 MG PO (14:42)
--- NOTE | 2022-03-12 14:56 | W.PM.OPN ---
Operative Note Operative Note Date of Service: 03/12/22 Narrative: ?Implant spinal cord stimulator [employer]. Ms Werner is very pleasant 48 years old female who? came today into the operating room for implantation of spinal cord stimulator for the treatment of pain related to postlaminectomy syndrome status post removal of the S1 schwannoma. She had successful trial of spinal cord stimulation.? Preoperatively patient received? 2. g cefazolin _approximately 30 minutes before the procedure. After obtaining informed consent patient was brought to the operating room,?she was positioned prone on operating table, [employer] monitors were applied and patient was deeply sedated. ?? Time-out was performed delineating correct site, side, the nature of the procedure, patient's allergy, preoperative antibiotic.? All operating room staff was participating in OR time-out procedure. Patient's entire back was prepped with ChloraPrep twice and draped with full body drape including Ioban film.? Sterilely draped C-arm was brought over operating field and sqare picture of L1, L2 vertebrae were demonstrated on the screen.? THE PROJECTION OF L2-L3 SPINAL PROCESSES TO THE SKIN WERE INFILTRATED WITH LIDOCAINE 2% MIXED WITH BUPIVACAINE 0.5%.? Six CM LONG VERTICAL INCISION using 10 blade scalpel WAS PERFORMED IN STRICT MIDLINE VERTICAL FASHION.? THOROUGH HEMOSTASIS WAS PERFORMED using electrocautery.? ?Thorough tissue dissections was performed until prevertebral fascia was freed from overlying tissues.? Attention FIRST? was concentrated on the RIGHT? L1-L2 epidural interspace.? The location of the projection of the right pedicle center of the L3 vertebra was found on the prevertebral fascia using C-arm.? This location was injected with mixture of lidocaine 2% and Marcaine 0.5% 5 cc in approximate direction of needle advancement..? After that ? 10 cm 14 gauge Straight introducer epidural needle was inserted through the fascia and advanced toward L1-L2 epidural interspace.? The advancement of the needle was performed on anterior posterior and lateral views.? Guitar wire and loss of resistance technique were used to locate epidural space.? When guitar wire was spread in the epidural fashion, epidural lead was inserted through needle and started to advance in epidural space to were the thoracic vertebrae.? The lead was positioned strictly on midline in the projection of T10 vertebral body After that location of the projection of the LEFT pedicle center of the? L3 vertebra was found -using C-arm.? This location was injected with mixture of lidocaine 2% and Marcaine 0.5% 5 cc.. .16 cm 14 gauge? straight introducer epidural needle was inserted through the fascia and advanced to L1-L2 epidural interspace.?? The 10 cm 14 gauge needle was used to advance to L1-L2 level using loss of resistance technique.? The advancement of the needle was performed on anterior posterior and lateral views.? Guitar wire and loss of resistance technique were used to locate epidural space.? When guitar wire was spread in the epidural fashion, epidural lead was inserted through the needle and advanced to the? T10 posterior epidural space position slightly right to the previously position electrode. The advancement was relatively difficult due to the presence of the previously inserted electrode and epidural adhesions. The resistance was met at approximately T11-T12 level and the introducer needle was withdrawn and blue sheath introducer catheter was inserted into the epidural space of the body of the epidural electrode. That allowed me to overcome resistance and advanced the catheter in the good position in the projection of the posterior epidural space slightly right to the existing electrode. Lateral view demonstrated the electrodes in good posterior position. At this moment patient was awaken and the epidural leads were connected to the testing device.? The patient reported stimulation corresponding to her pain.? After satisfactory position of the leads were established the needles were withdrawn, the stylette wires were removed from the epidural leads.? The anchoring devices were dislodged on the leads and advanced to the level of the skin.? The anchoring devices were advanced along the epidural leads and dislodged and epidural leads at the level of prevertebral fascia.? They were sutured to prevertebral fascia with 2 separate? Tycron 1.0 sutures per each anchoring device.? anchoring screws were tightened until 3 clicks were heard on each anchoring device.After that the wound was irrigated with copious amount of Vancomycin containing normal saline and packed with Vancomycin soaked 4 x 4. After that attention was concentrated on the right? upper buttock of the patient where the patient had her battery to be implanted.? 6 cm long horizontal incision was performed 3 cm below the TOP right iliac crest.? Thorough hemostasis was obtained.? The pocket accommodating the battery was formed going caudad from the level of the incision. The wound was irrigated with copious amount of Vancomycin contained normal saline.? Tunneling device was used to connect the 2 wounds and epidural leads were dislodged into side wound.? They were connected to the alpha W[employer] battery and locked with a locking screwdriver device.?. After that the anchoring sutures Tycron were applied in the most superior medial and most superior lateral corners of the wound.? After that they were connected to the anchoring holes on the body of the battery, the epidural leads were gathered? behind the body of the ALPHA battery, the battery and the leads were inserted into the pocket wound and after that the anchoring 2 sutures were tied.? The wounds were irrigated again with Vancomycin containing normal saline, thorough hemostasis was checked, and after that the wounds were closed using 0 Polysorb sutures. After that the skin edges were approximated using 2 0 Vicryl, munira were applied to the wounds at the level of the skin.? Bacitracin ointment was applies to the level of the munira and sterile dressings were applied to the staple lines. ? MediPort tape was used to hold the dressing to the patient's skin.? Abdominal binder to wear was provided to the patient.? At this moment patient was awaken and transferred to the bed.? SHE was recovering uneventfully in PACU.? ?
--- NOTE | 2022-03-12 16:03 | PC.NURSE ---
THIS RN HAD DR. DRAKE COME AND REASSESS PATIENT TO DISCHARGE AREA PRIOR TO HER DISCHARGE R/T SOME NAUSEA AND A HEADACHE. PATIENT DID RECEIVE TYLENOL IN PACU. DR. DRAKE REASSESSED PATIENT AND NO NEW ORDERS AT THIS TIME. PT DISCHARGED HOME WITH HER DAUGHTER. PATIENT TO GO TO THE ED WITH ANY DIFFICULTIES.
== END 2022-03-12 16:05 | disposition home or self-care (01) ==
PROVIDERS: Anesthesiology; PCP Internal Medicine; Visit Provider Anesthesiology
PROC: (CPT 63685; principal; 2022-03-12 11:30)
DX: M96.1 Postlaminectomy syndrome, not elsewhere classified (principal); M53.3 Sacrococcygeal disorders, not elsewhere classified; M47.816 Spondylosis without myelopathy or radiculopathy, lumbar region; G89.29 Other chronic pain; M54.50 Low back pain, unspecified; J45.909 Unspecified asthma, uncomplicated; Z86.69 Personal history of other diseases of the nervous system and sense organs; F41.1 Generalized anxiety disorder; F32.A Depression, unspecified; Z79.51 Long term (current) use of inhaled steroids; Z79.52 Long term (current) use of systemic steroids; Z79.899 Other long term (current) drug therapy
CPT/HCPCS: 63685; 63650 ×2; 81025; 94640; C1713; C1778; C1787; C1820; J0690; J2250; J2795; J3370

== ENCOUNTER 2022-03-14 00:24 | Emergency (ER) | payer OTHER, SELFPAY ==
--- NOTE | ~2022-03-14 | XR_ITS ---
EXAMINATION: FL GUIDANCE IN OR XR THORACIC SPINE 2V XR LUMBAR SPINE 2-3V CLINICAL INFORMATION: Intraoperative fluoroscopy for spinal implant placement Reason for Exam spinal pain from implant COMPARISON: MRI lumbar spine dated 05/20/2020 FINDINGS: Intraoperative fluoroscopy provided for Dr. Arzate on 03/12/2022. 3 fluoroscopic images are submitted for review. Spinal neurostimulator projects over the dorsal aspect of the central canal at the level of T10-T11. Fluoroscopy time: 7.5 minutes. Dose area product: 34.7Gy-cm2 AP and lateral views of the thoracic spine redemonstrate the spinal neural stimulator projecting over the T11-T12 vertebral bodies in the expected location of the dorsal central canal. Appearance/location has not changed since the intraoperative radiographs. Small endplate ossified present throughout the lumbar spine. Vertebral body heights maintained. AP and lateral views of the lumbar spine show the generator projecting over the right buttock, with leads entering the central canal at the level of L1-L2. Minimal dextro convex lumbar scoliosis. Vertebral body heights maintained. Bulky hypertrophic facet arthropathy from L3 through S1. Moderate left sacroiliac arthrosis. XR/XR thoracic spine 2V IMPRESSION: * Intraoperative fluoroscopy provided for Dr Arzate on 03/12/2022. Please see operative report. * Spinal neurostimulator in place. The spinal neurostimulator projects over the T11-T12 vertebral bodies in the expected location of the central canal.
--- NOTE | ~2022-03-14 | XR_ITS ---
EXAMINATION: FL GUIDANCE IN OR XR THORACIC SPINE 2V XR LUMBAR SPINE 2-3V CLINICAL INFORMATION: Intraoperative fluoroscopy for spinal implant placement Reason for Exam spinal pain from implant COMPARISON: MRI lumbar spine dated 05/20/2020 FINDINGS: Intraoperative fluoroscopy provided for Dr. Arzate on 03/12/2022. 3 fluoroscopic images are submitted for review. Spinal neurostimulator projects over the dorsal aspect of the central canal at the level of T10-T11. Fluoroscopy time: 7.5 minutes. Dose area product: 34.7Gy-cm2 AP and lateral views of the thoracic spine redemonstrate the spinal neural stimulator projecting over the T11-T12 vertebral bodies in the expected location of the dorsal central canal. Appearance/location has not changed since the intraoperative radiographs. Small endplate ossified present throughout the lumbar spine. Vertebral body heights maintained. AP and lateral views of the lumbar spine show the generator projecting over the right buttock, with leads entering the central canal at the level of L1-L2. Minimal dextro convex lumbar scoliosis. Vertebral body heights maintained. Bulky hypertrophic facet arthropathy from L3 through S1. Moderate left sacroiliac arthrosis. XR/XR lumbar spine 2-3V IMPRESSION: * Intraoperative fluoroscopy provided for Dr Arzate on 03/12/2022. Please see operative report. * Spinal neurostimulator in place. The spinal neurostimulator projects over the T11-T12 vertebral bodies in the expected location of the central canal.
[2022-03-14 00:46] VITALS: BP 120/59; PULSE 88; RESP 20; TEMP 36.2; O2SAT 98; BMI 34.0
--- NOTE | 2022-03-14 03:35 | ED.BACK ---
HPI - Back Pain/Injury General Chief Complaint: Back Pain/Injury Stated Complaint: spinal cord pain, side pain Time Seen by Provider: 03/14/22 03:35 Source: patient Mode of arrival: ambulatory Limitations: no limitations History of Present Illness HPI Narrative: Patient with chronic back pain status post S1 short number removal had spinal cord stimulator placed on 03/12 epidural electrodes was placed approximation of T11-T12 patient complaining of increasing pain and spasm since the surgery unable to take oxycodone because of nausea, pain is more localized at the site of stimulator placed no focal weakness no fever or chills Related Data Home Medications Medication Instructions Recorded Confirmed fluticasone 100 mcg-salmeterol 50 1 ea inhalation BID 02/09/22 03/12/22 mcg/dose blistr powdr for inhalation (Advair Diskus) valacyclovir 500 mg tablet 500 mg PO DAILY 02/09/22 03/12/22 Previous Rx's Medication Instructions Recorded tizanidine 2 mg tablet 2 mg PO BEDTIME PRN muscle 09/10/21 spasticity #30 tabs morphine 15 mg immediate release 15 mg PO TID PRN pain #10 tabs 09/13/21 tablet albuterol sulfate 90 mcg/actuation 2 puff inhalation QID PRN 12/24/21 aerosol inhaler shortness of breath or wheezing #8.5 grams cyclobenzaprine 10 mg tablet 10 mg PO TID PRN muscle spasm #14 02/28/22 tabs prednisone 20 mg tablet 40 mg PO DAILY #10 tabs 02/28/22 cephalexin 500 mg tablet 1,000 mg PO Q8H 16 days #96 tabs 03/12/22 ondansetron 4 mg disintegrating 4 mg PO Q8H PRN nausea and 03/12/22 tablet vomiting #10 tabs oxycodone 5 mg tablet 5 mg PO Q6H PRN severe pain (scale 03/12/22 score 7-10) 5 days #20 tabs cyclobenzaprine 10 mg tablet 10 mg PO Q8H #20 tabs 03/14/22 hydromorphone 2 mg tablet 2 mg PO Q6H PRN pain #20 tabs 03/14/22 (Dilaudid) Allergies Allergy/AdvReac Type Severity Reaction Status Date / Time Seasonal Allergies Allergy Mild Runny Nose Verified 03/14/22 00:51 Review of Systems Review of Systems: Yes all other systems are reviewed and are negative [facility] Past Medical History Medical History Anxiety Asthma Chronic back pain Depression S/P placement of nerve stimulator Surgical History History of lumbar laminectomy Social History Social History Alcohol intake: never Patient Tobacco Use Status: Never used Tobacco Smoked in Last 30 Days: No Advance Directives: No Advance Directives Information Provided: Yes Patient : No Current occupational status: employed 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 Oriented X3. No acute distress. Eyes: PERRLA, No Nystagmus ENT: Pharynx normal. Oral Mucosa moist Neck: Normal inspection. Neck supple. CVS: Normal heart rate and rhythm. Pulses normal. Respiratory: No respiratory distress. Equal air entry bilateral, no wheezing/rales/rhonchi Abdomen: Soft and nontender. Bowel sounds are present, no mass palpable, no CVA tenderness Skin: Skin warm and dry. Normal skin color. Normal skin turgor. Extremities: No lower extremity edema. No calf tenderness back: Tenderness at the site of spinal stimulator pocket slight ecchymosis increased spasm in the back muscles Neuro: Oriented X 3. No motor deficit. Medications Administered Discontinued Medications Generic Name Dose Route Start Last Admin Trade Name Freq PRN Reason Stop Dose Admin Cyclobenzaprine HCl 10 mg 03/14/22 03:45 03/14/22 03:55 Cyclobenzaprine Hcl 10 Mg Tablet PO 03/14/22 03:46 10 mg ONCE ONE Administration Dexamethasone 10 mg 03/14/22 05:22 03/14/22 05:31 Dexamethasone 2 Mg Tablet PO 03/14/22 05:23 10 mg ONCE ONE Administration Hydromorphone HCl 2 mg 03/14/22 03:45 03/14/22 03:56 Hydromorphone Hcl 2 Mg Tablet PO 03/14/22 03:46 2 mg ONCE ONE Administration Ketorolac Tromethamine 60 mg 03/14/22 05:21 03/14/22 05:30 Ketorolac Tromethamine 60 Mg/2 Ml Vial IM 03/14/22 05:22 60 mg ONCE ONE Administration Medical Decision Making Medical Decision Making MDM Narrative: Patient with chronic back pain with recent spinal stimulator placement increased muscle spasm will discharge patient home on Dilaudid and Flexeril patient able to ambulate in the ER will follow up with pain clinic x-ray of thoracic and lumbar spine shows stimulator leads in place Discharge Plan Discharge Clinical Impression: Back pain Patient Disposition: Home, Self-Care Instructions: Chronic Back Pain (DC) Additional Instructions: Take pain medication and muscle relaxant as prescribed and follow-up with pain clinic Prescriptions: New hydromorphone [Dilaudid] 2 mg tablet 2 mg PO Q6H PRN (Reason: pain) Qty: 20 0RF Rx Instructions: Partial Fill upon patient request. cyclobenzaprine 10 mg tablet 10 mg PO Q8H Qty: 20 0RF No Action oxycodone 5 mg tablet 5 mg PO Q6H PRN (Reason: severe pain (scale score 7-10)) 5 Days Qty: 20 0RF Rx Instructions: Partial Fill upon patient request. cephalexin 500 mg tablet 1,000 mg PO Q8H 16 Days Qty: 96 0RF Rx Instructions: take OTC probiotics 25 billion cultures in between the doses of the antibiotics. morphine 15 mg tablet 15 mg PO TID PRN (Reason: pain) Qty: 10 0RF Rx Instructions: partial fill okay; Partial Fill upon patient request. cyclobenzaprine 10 mg tablet 10 mg PO TID PRN (Reason: muscle spasm) Qty: 14 0RF prednisone 20 mg tablet 40 mg PO DAILY Qty: 10 0RF albuterol sulfate 90 mcg/actuation HFA aerosol inhaler 2 puff inhalation QID PRN (Reason: shortness of breath or wheezing) Qty: 8.5 0RF ondansetron 4 mg tablet,disintegrating 4 mg PO Q8H PRN (Reason: nausea and vomiting) Qty: 10 0RF valacyclovir 500 mg tablet 500 mg PO DAILY fluticasone propion-salmeterol [Advair Diskus] 100-50 mcg/dose blister with device 1 ea inhalation BID tizanidine 2 mg tablet 2 mg PO BEDTIME PRN (Reason: muscle spasticity) Qty: 30 0RF Rx Instructions: start with 1/2 tab as medication can be sedating
[2022-03-14] MEDS: Cyclobenzaprine HCl 10 MG TABLET PO (03:55)
[2022-03-14] MEDS: HYDROmorphone HCl 2 MG TABLET PO (03:56)
[2022-03-14 04:00] VITALS: BP 104/60; PULSE 75; RESP 20; O2SAT 99
--- NOTE | 2022-03-14 05:23 | PC.NURSE ---
Pt reports pain meds didn't aid burning pain. Pt reports 8/[address] Knight aware plan pt to receive toradol IM.
[2022-03-14] MEDS: Ketorolac Tromethamine 60 MG/2 ML VIAL IM (05:30)
[2022-03-14] MEDS: dexAMETHasone 2 MG TABLET 10 MG PO (05:31)
[2022-03-14 06:13] VITALS: PULSE 77; RESP 20; O2SAT 100
== END 2022-03-14 06:58 | disposition home or self-care (01) ==
PROVIDERS: Emergency Provider Internal Medicine; PCP Internal Medicine
DX: M54.9 Dorsalgia, unspecified (principal); Z96.82 Presence of neurostimulator
CPT/HCPCS: 72070; 72100; 96372; 99284; J1885; J8540

== ENCOUNTER → 2022-03-19 09:47 | Outpatient (BNVA) | payer OTHER, SELFPAY | PROVIDERS: PCP Internal Medicine; Visit Provider Anesthesiology | DX: M96.1 Postlaminectomy syndrome, not elsewhere classified (principal); M53.3 Sacrococcygeal disorders, not elsewhere classified; M47.26 Other spondylosis with radiculopathy, lumbar region; Z96.82 Presence of neurostimulator; Z98.890 Other specified postprocedural states | CPT/HCPCS: 99212 ==

== ENCOUNTER → 2022-03-26 09:49 | Outpatient (BNVA) | payer OTHER, SELFPAY | PROVIDERS: PCP Internal Medicine; Visit Provider Anesthesiology | DX: M96.1 Postlaminectomy syndrome, not elsewhere classified (principal); M53.3 Sacrococcygeal disorders, not elsewhere classified; M47.816 Spondylosis without myelopathy or radiculopathy, lumbar region; M54.16 Radiculopathy, lumbar region | CPT/HCPCS: 99212 ==

== ENCOUNTER → 2022-04-09 10:37 | Outpatient (BNVA) | payer OTHER, SELFPAY | PROVIDERS: PCP Internal Medicine; Visit Provider Anesthesiology | DX: M96.1 Postlaminectomy syndrome, not elsewhere classified (principal); M53.3 Sacrococcygeal disorders, not elsewhere classified; M47.816 Spondylosis without myelopathy or radiculopathy, lumbar region; M54.16 Radiculopathy, lumbar region | CPT/HCPCS: 99212 ==

== ENCOUNTER 2022-05-09 10:22 | Emergency (ER) | payer OTHER, SELFPAY ==
--- NOTE | ~2022-05-09 | XR_ITS ---
EXAMINATION: XR LUMBOSACRAL SPINE CLINICAL INFORMATION: Stimulator position. COMPARISON: 2021 TECHNIQUE: Three views of the lumbosacral spine. FINDINGS: There are 2 electrodes projecting over the central canal at the level of [id number] L1 and L2 the tip of which is excluded from film margins. Stimulator device seen projecting over the right iliac bone on prior x-ray from 03/14/2022 is excluded from film margins. Surgical clip right upper quadrant from prior cholecystectomy.The vertebral bodies and posterior elements are normal. The disc spaces are preserved and the vertebral alignment is normal. The paraspinal soft tissues are normal. XR/XR lumbar spine 2-3V IMPRESSION: There are 2 electrodes projecting over the central canal at the level of [id number] and L2 the tip of which is excluded from film margins.
[2022-05-09 10:26] VITALS: BP 142/88; PULSE 72; RESP 18; TEMP 36.6; O2SAT 100; BMI 34.0
--- NOTE | 2022-05-09 11:33 | ED.BACK ---
HPI - Back Pain/Injury General Chief Complaint: Back Pain/Injury Stated Complaint: L back pain rad to front Time Seen by Provider: 05/09/22 11:10 Source: patient History of Present Illness HPI Narrative: Patient is a 42-year-old female who presents emergency department for evaluation of back. Patient states that she has a history of chronic lower back pain but her symptoms are always right-sided. She states that during the way she did drive back and forth to [place] 3 times. After the last drive she while the following morning with pain to the left lower back which is atypical for her. This pain is nonradiating. It is intermittent in nature, made worse with particular movements, and is described as a spasming sensation and burning sensation. She tried cyclobenzaprine single dosage a few days ago, this made no difference in her pain. She states that typically cyclobenzaprine helps after even a single dosage. She called pain management, has an appointment to see them in 2 days. However, she could not wait as her pain was intolerable today. Denies recent precipitating injury, fevers, chills, burning with micturition, urinary frequency/urgency/hesitancy, possibility of s/p tubal ligation, bladder or bowel dysfunction, numbness or tingling of the perineum or bilateral legs, constipation, diarrhea, abdominal pain. Denies any known immune compromising conditions, personal history of cancer, or IV drug usage. MD elicited complaint: back pain Related Data Home Medications Medication Instructions Recorded Confirmed fluticasone 100 mcg-salmeterol 50 1 ea inhalation BID 02/09/22 03/12/22 mcg/dose blistr powdr for inhalation (Advair Diskus) valacyclovir 500 mg tablet 500 mg PO DAILY 02/09/22 03/12/22 Previous Rx's Medication Instructions Recorded tizanidine 2 mg tablet 2 mg PO BEDTIME PRN muscle 09/10/21 spasticity #30 tabs morphine 15 mg immediate release 15 mg PO TID PRN pain #10 tabs 09/13/21 tablet albuterol sulfate 90 mcg/actuation 2 puff inhalation QID PRN 12/24/21 aerosol inhaler shortness of breath or wheezing #8.5 grams cyclobenzaprine 10 mg tablet 10 mg PO TID PRN muscle spasm #14 02/28/22 tabs prednisone 20 mg tablet 40 mg PO DAILY #10 tabs 02/28/22 cephalexin 500 mg tablet 1,000 mg PO Q8H 16 days #96 tabs 03/12/22 ondansetron 4 mg disintegrating 4 mg PO Q8H PRN nausea and 03/12/22 tablet vomiting #10 tabs oxycodone 5 mg tablet 5 mg PO Q6H PRN severe pain (scale 03/12/22 score 7-10) 5 days #20 tabs cyclobenzaprine 10 mg tablet 10 mg PO Q8H #20 tabs 03/14/22 hydromorphone 2 mg tablet 2 mg PO Q6H PRN pain #20 tabs 03/14/22 (Dilaudid) Allergies Allergy/AdvReac Type Severity Reaction Status Date / Time Seasonal Allergies Allergy Mild Runny Nose Verified 04/09/22 10:46 Review of Systems Review of Systems: Constitutional: No weight loss, fever, chills, weakness or fatigue. HEENT: No visual loss, blurred vision, double vision. No hearing loss, sneezing, congestion, runny nose or sore throat. Skin: No rash or itching. Cardiovascular: No chest pain, chest pressure or chest discomfort. No palpitations or pedal edema. Respiratory: No shortness of breath, cough or sputum production. Gastrointestinal: No anorexia, nausea, vomiting or diarrhea. No abdominal pain or blood in stool. Genitourinary: No burning micturition. No urinary frequency or incontinence. Neurologic: No headache, dizziness, syncope, unilateral weakness, ataxia, numbness or tingling in the extremities. No change in bowel or bladder control. Musculoskeletal: + Back pain as noted in HPI. No joint pain or stiffness. Hematologic: No bleeding or bruising. Lymphatics: No enlarged lymph nodes. Psychiatric:No depression or anxiety. Endocrine: No reports of sweating. No cold or heat intolerance. No polyuria or polydipsia. 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 Blood pressure normal.? Heart rate normal.? Respiration rate normal. Temperature normal.? Oxygen saturation normal. Appearance: Alert.?Oriented to person, place and time. No acute distress.?Normal affect. Eyes: Pupils equal, round and reactive to light.? ENT: Pharynx normal.?? Neck: Normal inspection.? Neck supple.?? CVS: Heart sounds normal. Normal heart rate and rhythm.? Pulses normal; bilateral radial pulses 2+, bilateral posterior tibial/dorsalis pedis pulses 2+.? Respiratory: No respiratory distress.? Lung sounds clear to auscultation bilaterally?? Abdomen: Soft and non-tender. Normoactive bowel sounds. No CVA tenderness Skin: Skin warm and dry.? Normal skin color. Extremities: No lower extremity edema.? Back: + mild paraspinal muscular tenderness from lumbar region to coccyx. No CVA tenderness. No midline spinal tenderness, step-off's, or deformity. Full ROM intact in bilateral lower extremities. No rashes, lesions, areas of induration or fluctuance, or signs of infection noted. Neuro: Moves all extremities spontaneously. 5/5 strength in hip extension/flexion, abduction, adduction. Sensation to light touch intact bilaterally. Patellar and Achilles reflex 2+ bilaterally. No ataxia, gait normal and steady.. No focal neuro deficits. Medications Administered Discontinued Medications Generic Name Dose Route Start Last Admin Trade Name Freq PRN Reason Stop Dose Admin Ketorolac Tromethamine 60 mg 05/09/22 11:41 05/09/22 11:51 Ketorolac Tromethamine 60 Mg/2 Ml Vial IM 05/09/22 11:42 60 mg ONCE ONE Administration Medical Decision Making Medical Decision Making MDM Narrative: Patient is followed by [facility], Dr. Arzate, last seen 04/09/2022, with history of spinal cord stimulator implant in [place] 03/04/2022. Upon examination surgical incision is without signs of infection, no swelling, no tenderness, appears well healed at this time. This pain is atraumatic in nature, I suspect that this is, due to lumbar strain and chronic radiculopathy, although cannot completely exclude herniated disc. A neurological examination there are no deficits. Have a lower suspicion for spinal fracture, spinal infection, epidural abscess. She has no high risk past medical history that would warrant MRI or CT imaging. At this time symptoms are not consistent with ectopic , pyelonephritis, urinary tract infection, renal calculi, pelvic infection, appendicitis, diverticulitis, she has a benign abdominal examination. There is no current concern for cauda equina syndrome. Patient received an injection of ketorolac while in the emergency department with some improvement in pain. At this time she feels comfortable with discharge home, will follow-up with pain management as scheduled, continue to take ibuprofen cyclobenzaprine at home. Differential Diagnosis Differential Diagnoses: The differential diagnosis associated with the presentation includes (As noted above) Independent Interpretation I performed an independent interpretation of an: Plain X-Ray (I have interpreted x-ray imaging of the lumbar spine and agree with radiologist impression) Radiology Impression Discussion of test interpretation with radiology: I have reviewed the radiologist's reading. Radiologist Impression: XR/XR lumbar spine 2-3V IMPRESSION: There are 2 electrodes projecting over the central canal at the level of [id number] and L2 the tip of which is excluded from film margins. ? External Record Review External record reviewed: Outpatient record (As noted above) Prescription Management I considered prescription management with: Pain Medication Discharge Plan Discharge Clinical Impression: Lumbar radiculopathy Patient Disposition: Home, Self-Care Instructions: Acute Low Back Pain (ED), Lumbar Radiculopathy (ED), Lower Back Exercises (ED) Additional Instructions: As discussed, please continue taking your medications as prescribed. You may use ibuprofen 600 mg every 8 hours as needed for pain in addition to the cyclobenzaprine as needed. Follow-up with pain management as scheduled in 2 days. You may return back to the emergency department with any worsening symptoms or concerns. Prescriptions: No Action oxycodone 5 mg tablet 5 mg PO Q6H PRN (Reason: severe pain (scale score 7-10)) 5 Days Qty: 20 0RF Rx Instructions: Partial Fill upon patient request. cephalexin 500 mg tablet 1,000 mg PO Q8H 16 Days Qty: 96 0RF Rx Instructions: take OTC probiotics 25 billion cultures in between the doses of the antibiotics. morphine 15 mg tablet 15 mg PO TID PRN (Reason: pain) Qty: 10 0RF Rx Instructions: partial fill okay; Partial Fill upon patient request. cyclobenzaprine 10 mg tablet 10 mg PO TID PRN (Reason: muscle spasm) Qty: 14 0RF prednisone 20 mg tablet 40 mg PO DAILY Qty: 10 0RF albuterol sulfate 90 mcg/actuation HFA aerosol inhaler 2 puff inhalation QID PRN (Reason: shortness of breath or wheezing) Qty: 8.5 0RF ondansetron 4 mg tablet,disintegrating 4 mg PO Q8H PRN (Reason: nausea and vomiting) Qty: 10 0RF hydromorphone [Dilaudid] 2 mg tablet 2 mg PO Q6H PRN (Reason: pain) Qty: 20 0RF Rx Instructions: Partial Fill upon patient request. cyclobenzaprine 10 mg tablet 10 mg PO Q8H Qty: 20 0RF valacyclovir 500 mg tablet 500 mg PO DAILY fluticasone propion-salmeterol [Advair Diskus] 100-50 mcg/dose blister with device 1 ea inhalation BID tizanidine 2 mg tablet 2 mg PO BEDTIME PRN (Reason: muscle spasticity) Qty: 30 0RF Rx Instructions: start with 1/2 tab as medication can be sedating Referrals: Regine Baird MD [Primary Care Provider] -
[2022-05-09] MEDS: Ketorolac Tromethamine 60 MG/2 ML VIAL IM (11:51)
== END 2022-05-09 12:30 | disposition home or self-care (01) ==
PROVIDERS: Emergency Provider Emergency Medicine; PCP Internal Medicine
DX: M54.16 Radiculopathy, lumbar region (principal); M54.50 Low back pain, unspecified; Z79.899 Other long term (current) drug therapy; Z96.82 Presence of neurostimulator
CPT/HCPCS: 72100; 96372; 99283; 99284; J1885

== ENCOUNTER → 2022-05-11 09:14 | Outpatient (BNVA) | payer OTHER, SELFPAY | PROVIDERS: PCP Internal Medicine; Visit Provider Anesthesiology | DX: Z13.89 Encounter for screening for other disorder (principal) ==

== ENCOUNTER → 2022-05-18 13:01 | Outpatient (BNVA) | payer OTHER, SELFPAY | PROVIDERS: PCP Internal Medicine; Visit Provider Anesthesiology | DX: M96.1 Postlaminectomy syndrome, not elsewhere classified (principal); M53.3 Sacrococcygeal disorders, not elsewhere classified; M47.26 Other spondylosis with radiculopathy, lumbar region; M54.50 Low back pain, unspecified | CPT/HCPCS: 99212 ==

== ENCOUNTER → 2022-06-24 10:54 | Outpatient (BNVA) | payer OTHER, SELFPAY | PROVIDERS: PCP Internal Medicine; Visit Provider Anesthesiology | DX: M96.1 Postlaminectomy syndrome, not elsewhere classified (principal); M53.3 Sacrococcygeal disorders, not elsewhere classified; M47.816 Spondylosis without myelopathy or radiculopathy, lumbar region; M54.16 Radiculopathy, lumbar region; M54.50 Low back pain, unspecified; M16.0 Bilateral primary osteoarthritis of hip | CPT/HCPCS: 99212 ==

== ENCOUNTER 2022-06-29 09:40 | Outpatient (REF) | payer OTHER, SELFPAY ==
--- NOTE | ~2022-06-29 | XR_ITS ---
EXAMINATION: XR PELVIS CLINICAL INFORMATION: M53.3 - Sacrococcygeal disorders, not elsewhere classified COMPARISON: Lumbar radiographs 05/09/2022 TECHNIQUE: Pelvis is imaged in AP and 2 lateral views for a total of 3 views. FINDINGS: There is a spinal stimulator generator and leads seen overlying the right pelvis and lumbar spine similar to prior imaging. The pelvis shows no fracture or destructive process. The SI joints and pubis are unremarkable. No hip joint narrowing. No gaseous dilatation of bowel. There is a surgical clip again seen overlying mid pelvis just left of midline as well as some incidental calcified pelvic phleboliths. No spondylolisthesis or retrolisthesis L4-L5 or L5-S1. XR/XR pelvis min 3V IMPRESSION: Unremarkable pelvis.
== END 2022-06-29 09:41 | disposition home or self-care (01) ==
LOC: HO.XRAY 09:40
PROVIDERS: PCP Internal Medicine; Visit Provider Anesthesiology
DX: M16.0 Bilateral primary osteoarthritis of hip (principal); M47.816 Spondylosis without myelopathy or radiculopathy, lumbar region; M53.3 Sacrococcygeal disorders, not elsewhere classified; M54.50 Low back pain, unspecified
CPT/HCPCS: 72190

== ENCOUNTER → 2022-07-27 13:11 | Outpatient (BNVA) | payer OTHER, SELFPAY | PROVIDERS: PCP Internal Medicine; Visit Provider Anesthesiology | DX: M96.1 Postlaminectomy syndrome, not elsewhere classified (principal); M53.3 Sacrococcygeal disorders, not elsewhere classified; M47.816 Spondylosis without myelopathy or radiculopathy, lumbar region; M54.16 Radiculopathy, lumbar region; M54.50 Low back pain, unspecified; M16.0 Bilateral primary osteoarthritis of hip | CPT/HCPCS: 99212 ==

== ENCOUNTER 2022-11-30 15:33 | Outpatient (AMB) | payer OTHER, SELFPAY ==
--- NOTE | 2022-11-30 15:34 | MHC.OFFVIS ---
Intake Intake Visit Reasons: follow up to discuss options Allergies Seasonal Allergies Allergy (Mild, Verified 11/30/22 15:34) Runny Nose HPI HPI Comments History of Present Illness Details Samira is on the phone today to discuss possibilities of diagnosing her pain properly. The sacroiliac joint injection and medial branch blocks were planned in the past to perform to diagnose her pain properly. Unfortunately patient did not go for those procedures. She states that she cannot have those procedures without sedation. Limitations of the procedures which is done by sedation explained to the patient. It was complex and difficult conversation. I explained to her why do I need to do diagnostic injections, explained to her why I would prefer to have those injections done without sedation however if she insists I can schedule them for moderate sedation in the operating room.. Again I reported her that to diagnose her pain properly I would need to perform bilateral sacroiliac joint injection as well as bilateral medial branch block 2 separate occasions. This will allow me to properly diagnosed her pain. Her pelvis x-ray is normal however on x-ray early stages of the sacroiliac joint pathology might not be demonstrated properly. After she will receive this injections we will be able to decide what procedure is most helpful for her and may be offer her definitive treatment for both SI joints and or spondylosis of lumbar spine. We discussed other options I told her that possibility exists for her to be able to work to start her on small does of chronic opioid therapy, but it should be done in the primary care physician's office. She replied that her primary care physician prescribes her duloxetine. Explained to her that this is potentially good medication to treat her pain but it only would work with proper escalation of the doses until side effects or maximum doses reached. Prior: with complains on a widespread pains most located to the left side of the pelvis.? She reports pain in the projection of ASIS.? She reports pain radiating to the groin.? She reports pain in the projection of the sacroiliac joint.? She reports that because of her pain she is not sleeping well at night.? 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 She does not report that she is sleeping for at least 7 hours in a row.? She takes a little bit of sleep here and there during the daytime.? She reports that she cannot change her shift for the morning and daytime because it is much more intense and she cannot tolerate this kind of intense work.? We agreed that I will send her for hip x-ray.? I told her that she needs to adhere to 7 hours of the day sleep routine.? She can take tizanidine which she has at home for the purpose of sleep time relaxation.? On physical exam positive Gaenslen test in positive Yash test as well as 14 finger test are demonstrating left sacroiliitis.? I offered her left sacroiliac joint diagnostic injection however she refused.? She is asking me questions about how she returns to work.? She still needs to stay with those limitations for 3 more weeks.? After that she can gradually expand her physical activity with slow increase of the weight by 5 lb a week.? She was referred to physical therapy to treat her pain.? She was sent to x-ray in the emergency room which demonstrated normal lumbar spine and position of spinal cord stimulator in proper alignment in the lumbar and thoracic spine.? This device was inserted by me into her thoracic spine to alleviate pain in the right lower extremity status post schwannoma removal by Dr. Guerrero from [place].? The pain she presented with the today a new pain and not related to the pain the SCS machine was inserted for.? During the short conversation today I tried to evaluate her pain by directing her to perform Yash maneuver.? It seem to be that Yash is positive however I would need to repeated physical in my office to make a decision if this is the case.? I recommend her to schedule an appointment with me in person.? She requests me to send her to physical therapy.? I will do so.? I also recommended her to get into contact with [employer] administrative representative and try to adjust stimulation with possibility of spreading of the stimulation to cover her pain. Prior: ? SCS implant [employer] 03/04/2022.? Prior: She underwent a right S1 hemilaminectomy and removal of a nerve sheath tumor in November [address] Guerrero. Immediately after surgery she had recovered well and had resolution of her pain for 6 months. She reports a new right sided low back pain had started about two months ago and denies any inciting events.? She reports progressively worsening right lower extremity pain, she reports inability to stand for prolonged period of time.? She thinks that she feel herself the same very way as she felt before her surgery by Dr. Guerrero.? She requests me to send her for repeat MRI of the lumbar spine and sacral bone to evaluate if the schwannoma which was removed by Dr. Guerrero is not growing back.? At the same time she wants me to implant [employer] spinal cord stimulator to help her pain.? She reports that her trial of [employer] SCS resulted in 85% pain improvement. 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 Review of Systems Const All systems reviewed & are unremarkable except as noted in HPI and below Assessment & Plan Assessment & Plan (1) Post-laminectomy syndrome: Code(s): M96.1 - Postlaminectomy syndrome, not elsewhere classified (2) Sacroiliac joint dysfunction of right side: Code(s): M53.3 - Sacrococcygeal disorders, not elsewhere classified (3) Spondylosis of lumbar spine: Code(s): M47.816 - Spondylosis without myelopathy or radiculopathy, lumbar region (4) Lumbar radiculopathy, right: Code(s): M54.16 - Radiculopathy, lumbar region (5) Low back pain: Code(s): M54.50 - Low back pain, unspecified (6) Bilateral hip joint arthritis: Code(s): M16.0 - Bilateral primary osteoarthritis of hip (7) Spondylosis of lumbar region without myelopathy or radiculopathy: Code(s): M47.816 - Spondylosis without myelopathy or radiculopathy, lumbar region Plan Most likely she is suffering from spondylosis of lumbar spine as well as left sacroiliitis. Pelvis x-ray was normal and yet I would like to perform sacroiliac joint injection with couple of weeks following with medial branch block bilateral L3-L4 does ramus L5. This procedures will be done under sedation however I warned patient very strongly that she needs to stay awake immediately after injection despite the fact that she will receive the sedation. I aerobic exercise low impact was discussed with the patient to help her pain. She was sent for physical therapy, the order is still standing. Sleep hygiene and regulations were discussed with the patient. Next appointment is after the procedures. Patient Instructions: I here by testify that I spent 30 minutes in conversation with this patient as well as to planning her care and organized her note. Telehealth Telehealth Location of provider rendering services: practice address Location of patient: address on file Patient Identification confirmed using: Name, : Yes Telehealth method: voice only Patient verbally consented to treatment: Yes Patient verbally consented to billing insurance company: Yes Patient informed of any privacy concerns related to visit: Yes Coding Level of Care Code Tele Est Pt Level 4 (10458) Diagnoses Post-laminectomy syndrome M96.1 Sacroiliac joint dysfunction of right side M53.3 Spondylosis of lumbar spine M47.816 Lumbar radiculopathy, right M54.16 Low back pain M54.50 Bilateral hip joint arthritis M16.0 Spondylosis of lumbar region without myelopathy or radiculopathy M47.816
== END 2022-11-30 15:45 | disposition home or self-care (01) ==
LOC: HO.PMC 15:33
PROVIDERS: PCP Internal Medicine; Visit Provider Anesthesiology
DX: M96.1 Postlaminectomy syndrome, not elsewhere classified (principal); M53.3 Sacrococcygeal disorders, not elsewhere classified; M47.816 Spondylosis without myelopathy or radiculopathy, lumbar region; M54.16 Radiculopathy, lumbar region; M54.50 Low back pain, unspecified; M16.0 Bilateral primary osteoarthritis of hip
CPT/HCPCS: 99214

== ENCOUNTER → 2022-11-30 15:33 | Outpatient (BNVA) | payer OTHER, SELFPAY | PROVIDERS: PCP Internal Medicine; Visit Provider Anesthesiology ==

== ENCOUNTER 2023-01-06 10:50 | Outpatient (AMB) | payer OTHER, SELFPAY ==
--- NOTE | 2023-01-06 11:15 | A.OFFVIS_ITS ---
Intake Vital Signs 01/06/23 11:24 Height 5 ft 6 in Weight 208 lb BMI 33.6 BP 130/72 Blood Pressure Location Lt brachial Position Sitting Respiration 16 Pulse 66 Pulse Source Pulse Oximeter Pulse Oximetry (%) 99 Oxygen Delivery Method Room Air Intake Visit Reasons: Discuss Procedure Allergies No Known Allergies Allergy (Verified 01/06/23 11:23) HPI HPI Comments History of Present Illness Details Samira is on the phone today to discuss possibilities of diagnosing her pain properly. The sacroiliac joint injection and medial branch blocks were planned in the past to perform to diagnose her pain properly. She reports now pain radiating from lumbar spine into the thoracic spine as well as pain radiating into bilateral lower extremities to the level of bilateral hips and level of bilateral lower legs. She also reports that she feels that her painful radiculopathy on the right lower extremity returned. It is possible that the tumor on the right S1 which was removed from her by Dr. Guerrero grew back. She requests me to send her for the neurosurgical consult. I will schedule her for IV contrasted MRI of the lumbar spine with image including S1 area and I will schedule her for the neurosurgical consult after the MRI is done. My personal impression was that the patient had pain from sacroiliac joints and or pain from the facet joints or the combination of the both I was trying to schedule her for diagnostic sacroiliac joint injections as well as diagnostic medial branch blocks however the patient did not attend those procedures. Her primary care doctor prescribes her duloxetine for pain control she reports minimal help from duloxetine. Prior: with complains on a widespread pains most located to the left side of the pelvis.? She reports pain in the projection of ASIS.? She reports pain radiating to the groin.? She reports pain in the projection of the sacroiliac joint.? She reports that because of her pain she is not sleeping well at night.? 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 She does not report that she is sleeping for at least 7 hours in a row.? She takes a little bit of sleep here and there during the daytime.? She reports that she cannot change her shift for the morning and daytime because it is much more intense and she cannot tolerate this kind of intense work.? We agreed that I will send her for hip x-ray.? I told her that she needs to adhere to 7 hours of the day sleep routine.? She can take tizanidine which she has at home for the purpose of sleep time relaxation.? On physical exam positive Gaenslen test in positive Yash test as well as 14 finger test are demonstrating left sacroiliitis.? I offered her left sacroiliac joint diagnostic injection however she refused.? She is asking me questions about how she returns to work.? She still needs to stay with those limitations for 3 more weeks.? After that she can gradually expand her physical activity with slow increase of the weight by 5 lb a week.? She was referred to physical therapy to treat her pain.? She was sent to x-ray in the emergency room which demonstrated normal lumbar spine and position of spinal cord stimulator in proper alignment in the lumbar and thoracic spine.? This device was inserted by me into her thoracic spine to alleviate pain in the right lower extremity status post schwannoma removal by Dr. Guerrero from [place].? The pain she presented with the today a new pain and not related to the pain the SCS machine was inserted for.? During the short conversation today I tried to evaluate her pain by directing her to perform Yash maneuver.? It seem to be that Yash is positive however I would need to repeated physical in my office to make a decision if this is the case.? I recommend her to schedule an appointment with me in person.? She requests me to send her to physical therapy.? I will do so.? I also recommended her to get into contact with [employer] customer care representative and try to adjust stimulation with possibility of spreading of the stimulation to cover her pain. Prior: ? SCS implant [facility] 03/04/2022.? Prior: She underwent a right S1 hemilaminectomy and removal of a nerve sheath tumor in November [address] Guerrero. Immediately after surgery she had recovered well and had resolution of her pain for 6 months. She reports a new right sided low back pain had started about two months ago and denies any inciting events.? She reports progressively worsening right lower extremity pain, she reports inability to stand for prolonged period of time.? She thinks that she feel herself the same very way as she felt before her surgery by Dr. Guerrero.? She requests me to send her for repeat MRI of the lumbar spine and sacral bone to evaluate if the schwannoma which was removed by Dr. Guerrero is not growing back.? At the same time she wants me to implant [employer] spinal cord stimulator to help her pain.? She reports that her trial of [employer] SCS resulted in 85% pain improvement. 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 Review of Systems Const All systems reviewed & are unremarkable except as noted in HPI and below Physical Exam Vital Signs: Last Vital Signs Pulse 66 01/06/23 11:24 Resp 16 01/06/23 11:24 BP 130/72 01/06/23 11:24 Pulse Ox 99 01/06/23 11:24 Oxygen Delivery Method Room Air 01/06/23 11:24 BMI result Body Mass Index 33.6 Const General: cooperative and no acute distress Orientation/consciousness: patient oriented x3 Resp Effort & Inspection: normal respiratory effort, able to speak in complete sentences and no audible wheezes Cardio Jugular venous distension: no JVD GI Inspection: Yes normal to inspection Back/Spine/Pelvis Other: Bending forward and bending backwards both significantly painful. Bending backwards brings more pain than bending forward. Bending sideways also aggravates her pain. Yash test and Gaenslen test positive on the left. Neuro General: patient oriented x3 Assessment & Plan Assessment & Plan (1) Schwannoma of nerve of pelvis: Code(s): D36.16 - Benign neoplasm of peripheral nerves and autonomic nervous system of pelvis (2) Post-laminectomy syndrome: Code(s): M96.1 - Postlaminectomy syndrome, not elsewhere classified (3) Low back pain: Code(s): M54.50 - Low back pain, unspecified (4) Spondylosis of lumbar region without myelopathy or radiculopathy: Code(s): M47.816 - Spondylosis without myelopathy or radiculopathy, lumbar region (5) Lumbar radiculopathy, right: Code(s): M54.16 - Radiculopathy, lumbar region (6) Spondylosis of lumbar spine: Code(s): M47.816 - Spondylosis without myelopathy or radiculopathy, lumbar region (7) S/P lumbar laminectomy: Code(s): Z98.890 - Other specified postprocedural states (8) Bilateral hip joint arthritis: Code(s): M16.0 - Bilateral primary osteoarthritis of hip (9) Sacroiliac joint dysfunction of right side: Code(s): M53.3 - Sacrococcygeal disorders, not elsewhere classified Plan Patient insist on neurosurgical consult. She needs MRI with contrast to attend the consult. I will schedule her for the MRI. She will attend the neurosurgical consult when MRI is ready. Orders: Orders MR lumbar spine w con Today D36.16 - Benign neoplasm of peripheral nerves and autonomic nervous system of pelvis, M47.816 - Spondylosis without myelopathy or radiculopathy, lumbar region, M54.16 - Radiculopathy, lumbar region, M54.50 - Low back pain, unspecified, M96.1 - Postlaminectomy syndrome, not elsewhere classified, Z98.890 - Other specified postprocedural states Referrals Neurosurgery Referral D36.16 - Benign neoplasm of peripheral nerves and autonomic nervous system of pelvis, M47.816 - Spondylosis without myelopathy or radiculopathy, lumbar region, M53.3 - Sacrococcygeal disorders, not elsewhere classified, M54.16 - Radiculopathy, lumbar region, M54.50 - Low back pain, unspecified, M96.1 - Postlaminectomy syndrome, not elsewhere classified, Z98.890 - Other specified postprocedural states Patient Instructions: I here by testify that I spent 43 minutes with this patient discussing her issues, organizing her chart, reviewing previous records, planning her future care, and finishing up today's visit note. Coding Level of Care Code Est Pt Level 5 (55791) Diagnoses Schwannoma of nerve of pelvis D36.16 Post-laminectomy syndrome M96.1 Low back pain M54.50 Spondylosis of lumbar region without myelopathy or radiculopathy M47.816 Lumbar radiculopathy, right M54.16 Spondylosis of lumbar spine M47.816 S/P lumbar laminectomy Z98.890 Bilateral hip joint arthritis M16.0 Sacroiliac joint dysfunction of right side M53.3
[2023-01-06 11:24] VITALS: BP 130/72; PULSE 66; RESP 16; O2SAT 99; BMI 33.6
== END 2023-01-06 11:54 | disposition home or self-care (01) ==
PROVIDERS: PCP Internal Medicine; Visit Provider Anesthesiology
DX: D36.16 Benign neoplasm of peripheral nerves and autonomic nervous system of pelvis (principal); M96.1 Postlaminectomy syndrome, not elsewhere classified; M54.50 Low back pain, unspecified; M47.816 Spondylosis without myelopathy or radiculopathy, lumbar region; M54.16 Radiculopathy, lumbar region; Z98.890 Other specified postprocedural states; M16.0 Bilateral primary osteoarthritis of hip; M53.3 Sacrococcygeal disorders, not elsewhere classified
CPT/HCPCS: 99215

== ENCOUNTER → 2023-01-06 10:50 | Outpatient (BNVA) | payer OTHER, SELFPAY | PROVIDERS: PCP Internal Medicine; Visit Provider Anesthesiology | DX: D36.16 Benign neoplasm of peripheral nerves and autonomic nervous system of pelvis (principal); M96.1 Postlaminectomy syndrome, not elsewhere classified; M54.50 Low back pain, unspecified; M47.816 Spondylosis without myelopathy or radiculopathy, lumbar region; M54.16 Radiculopathy, lumbar region; M16.0 Bilateral primary osteoarthritis of hip; M53.3 Sacrococcygeal disorders, not elsewhere classified; Z98.890 Other specified postprocedural states; Z96.82 Presence of neurostimulator | CPT/HCPCS: 99212 ==

== ENCOUNTER 2023-01-21 10:02 | Outpatient (AMB) | payer OTHER, SELFPAY ==
--- NOTE | 2023-01-21 10:15 | A.SPINEOV_ITS ---
Intake Intake Visit Reasons: radiculopathy Intake Note: Ms. Werner is here today c/o back pain. MRI done @ [facility] Operations Support Specialist Required: No Allergies No Known Allergies Allergy (Verified 01/06/23 11:23) Assessment & Plan Assessment & Plan (1) Low back pain: Code(s): M54.50 - Low back pain, unspecified Plan Dear Dr Arzate, Thank you for referring Mrs Werner to our office today. This is a 42-year-old female who had a S1 schwannoma removed over year ago in [place] by surgeon named Dr. Guerrero. That surgery was performed to treat back pain. The patient will from the surgery with the exact same pain that she had before surgery and now with a new pain going down her right leg with a gripping sensation around her ankle. She was reassured that the symptoms would go away and which is nerve irritation from the surgery but unfortunately it did never past. She ultimately was seen in your office in a spinal cord stimulator was placed for the nerve pain. It has not helped her and she would like to have the spinal cord stimulator removed. 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 It bothers her at night. It bothers her well driving. She was due to undergo some SI joint injections in your office but is hesitating about this because she is fearful of the pain that may cause her. She has tried physical therapy, Tylenol Advil etc. for the pain. PMH: She has a history of shcwannoma removal, brennon, but other that she is healthy Social hx: She does not smoke Medications: Currently taking no medication Allergies: No drug allergies Physical exam: She is awake alert oriented, no acute distress, she is is demonstrating full strength of bilateral lower extremities, she does have positive PHILIP sign bilaterally and can reproduce what she describes as pelvic pain with these movements. It is similar somewhat to her back pain. Negative straight leg raise. Negative Gaenslen's test. Imaging review: She has a lumbar MRI and x-rays at [place] showing debulking of the right S1 foraminal schwannoma but other than that I do not see any significant lumbar pathology. Her spinal cord stimulator is placed on the right side of her buttock, and based on the x-rays enters the spine at about the L1-2 level going up to the midthoracic region. Impression: This is a 42-year-old female who under went the a right S1 schwannoma removal/debulking over year ago for back pain who has been left with a continued if not worsening low back pain and a new right leg pain which is likely related to the surgical site. Her MRI does not show any significant pathology. The schwannoma appears smaller but not completely gone. She had a spinal cord stimulator placed to help with the radiculopathy postoperatively but it is not helping and she would like it removed. I have tentatively given her date April 15. We discussed pertinent risks and benefits of surgery, including the fact that we may not be able to get the device out totally depend ing on the amount of scar tissue encountered. She understands this and still would like to proceed. Clinically I agree with you that the SI joint should be considered as an alternate source for her back pain and would agree with the injection. She will contact our office if she would like to proceed. Thank you for allowing us to care for your patient. The total time spent with this visit with this patient was 45 minutes reviewing history, physical exam, lumbar imaging review, and implementation of treatment plan or further diagnostic testing Yossi Vale MD,PhD [facility] Coding Level of Care Code New Pt Level 4 (72049) Diagnoses Low back pain M54.50
== END 2023-01-21 11:28 | disposition home or self-care (01) ==
PROVIDERS: PCP Internal Medicine; Referring Provider Anesthesiology; Visit Provider Physician Assistant
DX: M54.50 Low back pain, unspecified (principal)
CPT/HCPCS: 99204

== ENCOUNTER → 2023-01-21 10:02 | Outpatient (BNVA) | payer OTHER, SELFPAY | PROVIDERS: PCP Internal Medicine; Referring Provider Anesthesiology; Visit Provider Physician Assistant | DX: M54.50 Low back pain, unspecified (principal); D36.10 Benign neoplasm of peripheral nerves and autonomic nervous system, unspecified; Z96.82 Presence of neurostimulator | CPT/HCPCS: 99202 ==

== ENCOUNTER 2023-01-26 19:19 | Emergency (ER) | payer OTHER, SELFPAY ==
--- NOTE | ~2023-01-26 | CT_ITS ---
EXAMINATION: CT ABDOMEN AND PELVIS WITHOUT CONTRAST CLINICAL INFORMATION: Right flank pain COMPARISON: None available. TECHNIQUE: Multidetector volumetric imaging was performed from the superior aspect of the liver through the pubic symphysis. Sagittal and coronal reformatted images were obtained on the technologist's workstation. This CT examination was performed using dose optimization techniques as appropriate, variously including the following: *Automated exposure control *Adjustment of mA and/or kV according to patient size (this includes techniques or standardized protocols for targeted exams where dose is matched to indication/reason for exam; i.e. extremities or head) *Use of iterative reconstruction technique DLP: 663 mGy-cm FINDINGS: LUNG BASES: The visualized lung bases are unremarkable. LIVER, GALLBLADDER, AND BILIARY TREE: The liver is normal in size, shape, and attenuation. No focal hepatic lesion or biliary ductal dilatation is present. The gallbladder has been removed. PANCREAS: Unremarkable. SPLEEN: Unremarkable. ADRENAL GLANDS: Unremarkable. KIDNEYS AND URETERS: The kidneys are normal in size, shape, and attenuation. No hydronephrosis, hydroureter, or calculi seen. No perinephric stranding. BLADDER: Unremarkable. GASTROINTESTINAL TRACT: Stool throughout the colon questionable for constipation. No dilated loops of bowel to suggest obstruction. The small and large bowel are otherwise unremarkable. The appendix is unremarkable. ABDOMINAL WALL: Diastasis of the rectus muscles. No significant hernia is appreciated. LYMPH NODES: Normal. VASCULAR: Unremarkable. PELVIC VISCERA: Unremarkable. OSSEOUS STRUCTURES: Spinal stimulator in the lower thoracic spinal canal. CT/CT abdomen pelvis wo IV con IMPRESSION: No stone or hydronephrosis. Large amount of stool in the colon questionable for constipation. Fleischner guidelines were followed.
[2023-01-26 19:22] VITALS: BP 126/77; PULSE 88; RESP 16; TEMP 36.2; O2SAT 98; BMI 34.2
[2023-01-26 20:39] LABS: Appearance Urine Cloudy; Color Urine Dark Yellow; Glucose Urine UA Negative (Negative); Leukocyte Esterase Urine Moderate (2+) (Negative); Nitrite Urine Negative (Negative); Specific Gravity - Urine 1.025 (1.005-1.025); UMIC TRIGGER UACC YES; Urine Blood Large (3+) (Negative); Urine Ketones Trace mg/dL (Negative); Urine Protein Trace mg/dL (Neg-Trace)
[2023-01-26 20:44] LABS: Bacteria Urine None Seen (None Seen); Hyaline Casts Urine 0-2 /LPF (0-2); RBC Urine >20 /HPF (0-2); Squamous Epithelial Cell Urine 0-2 /HPF (0-2); UACC Culture Trigger YES; WBC Urine >50 /HPF (0-5)
[2023-01-26 21:15] LABS: UPreg QC Valid YES; Urine Pregnancy NEGATIVE (NEGATIVE)
[2023-01-26 21:16] LABS: Basophils Percent Auto 0.4 % (0-2); Hematocrit 36.6 % (37.0-47.0); Hemoglobin 12.4 g/dl (12.0-16.0); Imm Gran Abs Auto 0.01 X10*3/uL (0.00-0.03); Imm Gran Pct Auto 0.1 % (0.0-0.4); Lymphocytes Absolute Auto 2.1 X10*3/uL (1.2-4.9); Lymphocytes Percent Auto 25.8 % (20-40); MANUAL DIFF FLAG NO; Mean Corpuscular HGB Conc 33.9 g/dl (31.0-35.0); Mean Corpuscular Hemoglobin 31.1 pg (27.0-33.0); Mean Corpuscular Volume 91.7 fL (80.0-98.0); Mean Platelet Volume 9.5 fL (9.4-12.3); Monocytes Absolute Auto 0.5 X10*3/uL (0.1-1.2); Monocytes Percent Auto 5.7 % (2-11); Neutrophils Absolute Auto 5.6 x10*3/uL (2.0-8.3); Platelet Count 275 X10*3/uL (160-400); Red Blood Count 3.99 X10*6/uL (4.20-5.50); Red Cell Distribution Width 11.7 % (11.0-16.0); White Blood Count 8.2 X10*3/uL (4.8-10.8)
[2023-01-26] MEDS: Ketorolac Tromethamine 15 MG/ML VIAL IVPUSH (21:17)
[2023-01-26] MEDS: 0.9 % Sodium Chloride 500 ML 999 ML IV (21:17)
--- NOTE | 2023-01-26 21:23 | PC.NURSE ---
pt a&ox4, respirations even and unlabored. pt reports sudden onset of right flank pain for one day, pt reports bladder discomfort, but denies blood in urine, frequency and pain. pt reports the right flank pain radiates into the right leg and down to her right foot. pt reports she has history of spinal issues and reports seeing a specialist. pt denies n/v/d. iv established and labs obtained at this time.
[2023-01-26 21:30] LABS: Alanine Aminotransferase 12 U/L (0-31); Albumin Level 4.2 g/dL (3.5-5.0); Alkaline Phosphatase 58 U/L (39-117); Anion Gap 10 (12-20); Aspartate Amino Transferase 16 U/L (5-31); Bilirubin Direct 0.2 mg/dL (0.0-0.5); Bilirubin Total 0.8 mg/dL (0.0-1.0); Blood Urea Nitrogen 11 mg/dL (9-16); Calcium 9.7 mg/dL (8.4-10.2); Carbon Dioxide 28 mmol/L (22-29); Chloride 108 mmol/L (96-108); Creatinine Clr Calc Pharmacy 98.7; Estimated Glomerular Filt Rate > 60; Glucose Random 86 mg/dL (60-115); Lipase 20 U/L (8-78); Potassium 3.8 mmol/L (3.3-5.1); Sodium 142 mmol/L (135-145); Total Protein 7.7 g/dL (6.5-8.0)
[2023-01-26 22:00] VITALS: BP 115/68; PULSE 74; RESP 16; O2SAT 100
[2023-01-26] MEDS: cefTRIAXone sodium 1 GM in 0.9 % Sodium Chloride 50 ML IV (23:13)
--- NOTE | 2023-01-26 23:14 | ED_ITS ---
HPI - General Adult General Chief complaint: General Medical Stated complaint: Back pain/ R leg pain/UTI? Time Seen by Provider: 01/26/23 20:12 History of Present Illness HPI narrative: patient is a 42-year-old female presents today with having bilateral flank pain. Back pain. Pain on urination. Patient from home. No fever no chills. No history diabetes positive history of back pain in the past Related Data Home Medications Medication Instructions Recorded Confirmed fluticasone 100 mcg-salmeterol 50 1 ea inhalation BID 02/09/22 05/18/22 mcg/dose blistr powdr for inhalation (Advair Diskus) Previous Rx's Medication Instructions Recorded albuterol sulfate 90 mcg/actuation 2 puff inhalation QID PRN 12/24/21 aerosol inhaler shortness of breath or wheezing #8.5 grams cyclobenzaprine 10 mg tablet 10 mg PO Q8H #20 tabs 03/14/22 cefuroxime axetil 500 mg tablet 500 mg PO BID 10 days #20 tabs 01/26/23 polyethylene glycol 3350 17 17 g PO DAILY #119 grams 01/26/23 gram/dose oral powder (Miralax) Allergies Allergy/AdvReac Type Severity Reaction Status Date / Time No Known Allergies Allergy Verified 01/06/23 11:23 Review of Systems 2 Review of Systems: positive pain on urination positive increasing frequency Yes all other systems are reviewed and are negative [facility] Past Medical History Attestation statement: The following information was validated with the patient. 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 Oriented X3. No acute distress. Eyes: Pupils equal, round and reactive to light. ENT: Pharynx normal. Neck: Normal inspection. Neck supple. No lymph nodes noted. No crepitus CVS: Normal heart rate and rhythm. Pulses normal. Normal S1 and S2 Respiratory: No respiratory distress. Breath sounds normal. No Wheezing. No rales Abdomen: Soft and nontender. No rigidity. No distention. good BS x4 Skin: Skin warm and dry. Normal skin color. Normal skin turgor. Extremities: No lower extremity edema. Neurovascular intact to all extremities. No Lacerations. No Rash Neuro: Oriented X 3. No motor deficit. No sensory deficit. Moving all extermities. No slurred speech Medications Administered Generic Name Dose Route Start Last Admin Trade Name Freq PRN Reason Stop Dose Admin Ceftriaxone Sodium 1 gm/ 50 mls @ 100 mls/hr 01/26/23 23:08 01/26/23 23:13 Sodium Chloride IV 01/26/23 23:37 100 mls/hr ONCE ONE Administration Discontinued Medications Generic Name Dose Route Start Last Admin Trade Name Freq PRN Reason Stop Dose Admin Sodium Chloride 500 mls @ 999 mls/hr 01/26/23 21:00 01/26/23 22:43 Ns IV 01/26/23 21:30 Infused .Q31M ALBERTO Infusion Ketorolac Tromethamine 15 mg 01/26/23 20:59 01/26/23 21:17 Ketorolac Tromethamine 15 Mg/Ml Vial IVPUSH 01/26/23 21:00 15 mg ONCE ONE Administration Medical Decision Making Medical Decision Making MDM Narrative: patient had a normal white count. Electrolytes showed normal kidney function. LFTs are normal lipase is normal no evidence for pancreatic disease. Urine showed large amount of blood with moderate amount of leukocyte Estrace positive WBC consistent with UTI. Patient have flank pain. Question pilocarpine stone. CT scan of the abdomen pelvis was done. My interpretation patient's CT scan showed no acute kidney stone. No obstruction no abscess no perforation. No abdominal aortic aneurysm. I reviewed radiology's reading consistent with having negative stone positive constipation. Will start patient on a dose of Rocephin for possible pyelo. Will also start patient on antibiotic on an outpatient basis. Will discharge patient home. Encourage fluids. In stable condition. Differential Diagnosis Differential Diagnoses: The differential diagnosis associated with the presentation includes Pyelonephritis, UTI, kidney stone, obstruction, abdominal aortic aneurysm Admission/Observation Consideration of admission/observation: Escalation of care including admission/observation considered well-appearing no need to admit Lab Data MDM Lab Attestation statement: I reviewed the patient's lab results. 01/26/23 21:11 01/26/23 21:11 Labs: Lab Results 01/26/23 01/26/23 Range/Units 20:34 21:11 WBC 8.2 (4.8-10.8) X10*3/uL RBC 3.99 L (4.20-5.50) X10*6/uL Hgb 12.4 (12.0-16.0) g/dl Hct 36.6 L (37.0-47.0) % MCV 91.7 (80.0-98.0) fL MCH 31.1 (27.0-33.0) pg MCHC 33.9 (31.0-35.0) g/dl RDW 11.7 (11.0-16.0) % Plt Count 275 (160-400) X10*3/uL MPV 9.5 (9.4-12.3) fL Immature Gran % (Auto) 0.1 (0.0-0.4) % Neut % (Auto) 68.0 (45-73) % Lymph % (Auto) 25.8 (20-40) % [place] % (Auto) 5.7 (2-11) % Eos % (Auto) 0.0 (0-4) % Baso % (Auto) 0.4 (0-2) % Lymph # (Auto) 2.1 (1.2-4.9) X10*3/uL [place] # (Auto) 0.5 (0.1-1.2) X10*3/uL Eos # (Auto) 0.0 (0.0-0.4) X10*3/uL Baso # (Auto) 0.0 (0.0-0.2) X10*3/uL Abs Immat Gran (auto) 0.01 (0.00-0.03) X10*3/uL Absolute Neuts (auto) 5.6 (2.0-8.3) x10*3/uL Absolute Nucleated RBC 0.000 (0.0-0.012) X10*3/uL Nucleated RBC % (auto) 0.0 (0.0-0.2) /100WBC Sodium 142 (135-145) mmol/L Potassium 3.8 (3.3-5.1) mmol/L Chloride 108 (96-108) mmol/L Carbon Dioxide 28 (22-29) mmol/L Anion Gap 10 L (12-20) BUN 11 (9-16) mg/dL Creatinine 0.85 (0.5-1.4) mg/dL Estim Creat Clear Calc 98.7 Estimated GFR > 60 Random Glucose 86 (60-115) mg/dL Calcium 9.7 (8.4-10.2) mg/dL Total Bilirubin 0.8 (0.0-1.0) mg/dL Direct Bilirubin 0.2 (0.0-0.5) mg/dL AST 16 (5-31) U/L ALT 12 (0-31) U/L Alkaline Phosphatase 58 (39-117) U/L Total Protein 7.7 (6.5-8.0) g/dL Albumin 4.2 (3.5-5.0) g/dL Lipase 20 (8-78) U/L Urine Color Dark Yellow Urine Appearance Cloudy Urine pH 6.0 (5.0-9.0) Ur Specific [place] 1.025 (1.005-1.025) Urine Protein Trace (Neg-Trace) mg/dL Urine Glucose (UA) Negative (Negative) mg/dL Urine Ketones Trace (Negative) mg/dL Urine Blood Large (3+) H (Negative) Urine Nitrite Negative (Negative) Ur Leukocyte Esterase Moderate (2+) H (Negative) Urine RBC >20 H (0-2) /HPF Urine WBC >50 H (0-5) /HPF Ur Squamous Epith Cells 0-2 (0-2) /HPF Urine Bacteria None Seen (None Seen) Hyaline Casts 0-2 (0-2) /LPF Urine Test NEGATIVE (NEGATIVE) Independent Interpretation I performed an independent interpretation of an: CT Scan ( CT scan of the abdomen pelvis showed no acute obstruction abscess perforation) Radiology Impression Discussion of test interpretation with radiology: I have reviewed the radiologist's reading. Prescription Management I considered prescription management with: Antibiotic will give antibiotics for UTI Discharge Plan Discharge Clinical Impression: Pyelonephritis Patient Disposition: Home, Self-Care Instructions: Kidney Infection (ED) Prescriptions: New cefuroxime axetil 500 mg tablet 500 mg PO BID 10 Days Qty: 20 0RF polyethylene glycol 3350 [Miralax] 17 gram/dose powder 17 g PO DAILY Qty: 119 0RF No Action albuterol sulfate 90 mcg/actuation HFA aerosol inhaler 2 puff inhalation QID PRN (Reason: shortness of breath or wheezing) Qty: 8.5 0RF cyclobenzaprine 10 mg tablet 10 mg PO Q8H Qty: 20 0RF fluticasone propion-salmeterol [Advair Diskus] 100-50 mcg/dose blister with device 1 ea inhalation BID Referrals: PhysicianWilliam [Primary Care Provider] - 01/28/23
== END 2023-01-27 00:26 | disposition home or self-care (01) ==
PROVIDERS: Emergency Provider Emergency Medicine Emergency Medical Services
DX: N12 Tubulo-interstitial nephritis, not specified as acute or chronic (principal); M54.50 Low back pain, unspecified; G89.29 Other chronic pain; R10.9 Unspecified abdominal pain
CPT/HCPCS: 36415; 74176; 80048; 80076; 81001; 81025; 83690; 85025; 87086; 96361; 96365; 96375; 99284; 99285; J0696; J1885

== ENCOUNTER 2023-01-29 15:15 | Outpatient (AMB) | payer OTHER, SELFPAY ==
--- NOTE | 2023-01-29 15:55 | A.OFFVIS_ITS ---
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 Specifically she is reporting sciatic and radiculopathy like pain going down the back of her leg on the left side this time. She is due to have the spinal cord stimulator removed at her request by Dr. Vale in March. We discussed the fact that this could be a new radiculopathy unrelated to her old issues but that we would need new MRI to clarify the situation. She is due to have an MRI with and without iam 0 that was ordered at your office, and we can review that once it is completed. The type of stimulator she has apparently will allow for MRI. Total amount of time spent in this visit was 20 minutes in discussion of symptoms, ordering imaging, upcoming surgery and subsequent plan of care Yossi Vale MD,PhD [facility] Coding Level of Care Code Est Pt Level 3 (77612) Diagnoses Spondylosis of lumbar region without myelopathy or radiculopathy M47.816 Spinal cord stimulator dysfunction T85.192A
== END 2023-01-29 16:12 | disposition home or self-care (01) ==
PROVIDERS: Visit Provider Physician Assistant
DX: M47.816 Spondylosis without myelopathy or radiculopathy, lumbar region (principal); T85.192A Other mechanical complication of implanted electronic neurostimulator of spinal cord electrode (lead), initial encounter
CPT/HCPCS: 99213

== ENCOUNTER → 2023-01-29 15:15 | Outpatient (BNVA) | payer OTHER, SELFPAY | PROVIDERS: Visit Provider Physician Assistant | DX: M47.816 Spondylosis without myelopathy or radiculopathy, lumbar region (principal); T85.192A Other mechanical complication of implanted electronic neurostimulator of spinal cord electrode (lead), initial encounter | CPT/HCPCS: 99212 ==

== ENCOUNTER → 2023-03-23 08:00 | Day surgery (SDC) | payer OTHER, SELFPAY ==
--- NOTE | 2023-03-22 09:35 | HO.ANESPROP2 ---
HPI - Anesthesia Eval Consult details Narrative: 42yo F for Remove Spinal Cord Stimulator, 04/15/23 s/p insertion 02/2022 with MAC Anesthesia Pre-Procedure Meds Is the patient on any of the following meds?: Dulaglutide (Trulicity) PMFSH Active Problems Active Problems: All Active Problems (Updated 02/12/23 @ 10:35 by Avila Arzate MD) Left lumbar radiculopathy (Acute) Spinal cord stimulator dysfunction (Acute) Spondylosis of lumbar region without myelopathy or radiculopathy (Acute) Bilateral hip joint arthritis (Acute) Low back pain (Acute) Schwannoma of nerve of pelvis (Acute) Post-laminectomy syndrome (Acute) Lumbar radiculopathy, right (Acute) Spondylosis of lumbar spine (Acute) S/P lumbar laminectomy (Acute) Sacroiliac joint dysfunction of right side (Acute) Myofascial pain dysfunction syndrome (Acute) Rotator cuff tendonitis (Acute) Past Medical History Medical History Seasonal allergies Chronic back pain Asthma Depression Anxiety Family History Family history of problems with anesthesia: No Surgical History Surgical History (Updated 03/23/23 @ 08:12 by Natalie He RN) Hx laparoscopic cholecystectomy History of bunionectomy Hx of bilateral breast reduction surgery History of bilateral tubal ligation History of lumbar laminectomy S/P placement of nerve stimulator History of Problems with Anesthesia: No Social History Social History Alcohol intake: never Comment: tolerable Patient Tobacco Use Status: Never used Tobacco Current occupational status: employed 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 Meds Allergies Allergy/AdvReac Type Severity Reaction Status Date / Time No Known Allergies Allergy Verified 03/23/23 08:12 Home Medications Medication Instructions Recorded Confirmed Last Taken Type dulaglutide 0.75 mg/0.5 mL mg subcut QWEEK 03/23/23 Unknown History subcutaneous pen injector (Trulicity) valacyclovir 500 mg tablet 500 mg PO DAILY 03/23/23 03/23/23 Unknown History Exam Pertinent Lab Results Pertinent Lab Results: Laboratory Tests 01/26/23 21:11 WBC 8.2 Hgb 12.4 Hct 36.6 L Plt Count 275 Sodium 142 Potassium 3.8 Chloride 108 Carbon Dioxide 28 BUN 11 Creatinine 0.85 Assessment and Plan Assessment Anesthesia Assessment: Chart Reviewed Final Anesthetic Review Family History of Problems with Anesthesia: No History of Problems with Anesthesia: No
--- NOTE | 2023-03-23 07:05 | MHC.SHP ---
Pre-Procedural Eval Section A Date of Service: 03/23/23 The patient is an INPATIENT: No Changes since office visit: No Cold of Flu in the past 2 weeks, No New Medical Problems, No Changes in Medication and No Patient answered all questions The History & Physical has been completed within 30 days and I have reviewed it.: No Section B Chief Complaint: Low back pain, unspecified Allergies: Allergies Allergy/AdvReac Type Severity Reaction Status Date / Time No Known Allergies Allergy Verified 01/06/23 11:23 Review of Systems Sugical H&P ROS: Negative: Constitution, Cardiovascular, Respiratory, Neurological, Psychiatric, Hem-Onc, Allergic/Immunologic, Gastrointestinal, Genitourinary, Musculoskeletal, Integumentary, Endocrine and Eyes/Ears/Nose/Throat Exam Surgical H&P Exam: Not Evaluated: HEENT, Not Evaluated: Heart, Not Evaluated: Lungs, Not Evaluated: Extremities, Not Evaluated: Abdomen, Not Evaluated: Skin and Not Evaluated: Neurological Plan Diagnosis/Plan: Unchanged Removal of spinal cord stimulator Time Spent With Patient Time: Total time managing care of this patient today _5___ minutes.
[2023-03-23 08:12] VITALS: BMI 32.5
--- NOTE | 2023-03-23 09:18 | PC.NURSE ---
pt told me she took takes trulicity which wasn't listed in computer. took last dose on wednesday. wasn't told to stop it. her surgery was moved up. therefore no PAT appointment done and no phone PAT done. upon discussion with anesthesia and dr daily, patient cancelled for today.
== END ==
PROVIDERS: PCP Internal Medicine; Visit Provider Neurological Surgery
DX: Z45.42 Encounter for adjustment and management of neurostimulator (principal); Z53.09 Procedure and treatment not carried out because of other contraindication; Z79.85 Long-term (current) use of injectable non-insulin antidiabetic drugs; M54.50 Low back pain, unspecified

== ENCOUNTER 2023-04-15 09:30 | Day surgery (SDC) | payer OTHER, SELFPAY ==
[2023-04-15] VITALS (8 sets, daily range): BP systolic 101–123; BP diastolic 40–71; PULSE 49–77; RESP 15–16; TEMP 36.7–37; O2SAT 97–100; BMI 32.8
--- NOTE | 2023-04-15 06:56 | MHC.SHP ---
Pre-Procedural Eval Section A - 24 Hr Update-Section A only Date of Service: 04/15/23 The patient is an INPATIENT: No Changes since office visit: No Cold of Flu in the past 2 weeks, No New Medical Problems, No Changes in Medication and No Patient answered all questions The patient has been examined within 24 hours of the surgical procedure. The History & Physical has been completed within 30 days and I have reviewed it.: No Section B - Complete if H&P > 30 days Chief Complaint: Low back pain, unspecified Allergies: Allergies Allergy/AdvReac Type Severity Reaction Status Date / Time No Known Allergies Allergy Verified 03/23/23 08:12 Review of Systems Sugical H&P ROS: Negative: Constitution, Cardiovascular, Respiratory, Neurological, Psychiatric, Hem-Onc, Allergic/Immunologic, Gastrointestinal, Genitourinary, Musculoskeletal, Integumentary, Endocrine and Eyes/Ears/Nose/Throat Exam Surgical H&P Exam: Not Evaluated: HEENT, Not Evaluated: Heart, Not Evaluated: Lungs, Not Evaluated: Extremities, Not Evaluated: Abdomen, Not Evaluated: Skin and Not Evaluated: Neurological Plan Diagnosis/Plan: Unchanged removal of spinal cord stimulator Time Spent With Patient Time: Total time managing care of this patient today _5___ minutes.
[2023-04-15] MEDS: Gabapentin 300 MG CAPSULE PO (10:00)
[2023-04-15] MEDS: methocarbamoL 750 MG TABLET PO (10:00)
[2023-04-15] MEDS: Lactated Ringers 1,000 ML 50 ML IVCONT (10:01)
--- NOTE | 2023-04-15 10:20 | HO.ANESPROP2 ---
HPI - Anesthesia Eval Consult details Narrative: Spinal Cord Stimulator Dysfunction Anesthesia Pre-Procedure Meds Is the patient on any of the following meds?: Dulaglutide (Trulicity) If Yes to any meds - educate patient: Pt education - increased risk of aspiration and Pt education - possibility of cancelled proc at provider's discretion PMFSH Active Problems Active Problems: All Active Problems (Updated 02/12/23 @ 10:35 by Avila Arzate MD) Left lumbar radiculopathy (Acute) Spinal cord stimulator dysfunction (Acute) Spondylosis of lumbar region without myelopathy or radiculopathy (Acute) Bilateral hip joint arthritis (Acute) Low back pain (Acute) Schwannoma of nerve of pelvis (Acute) Post-laminectomy syndrome (Acute) Lumbar radiculopathy, right (Acute) Spondylosis of lumbar spine (Acute) S/P lumbar laminectomy (Acute) Sacroiliac joint dysfunction of right side (Acute) Myofascial pain dysfunction syndrome (Acute) Rotator cuff tendonitis (Acute) Past Medical History Medical History Seasonal allergies Chronic back pain Asthma Depression Anxiety Family History Family history of problems with anesthesia: No Surgical History Surgical History Hx laparoscopic cholecystectomy History of bunionectomy Hx of bilateral breast reduction surgery History of bilateral tubal ligation History of lumbar laminectomy S/P placement of nerve stimulator History of Problems with Anesthesia: No Social History Social History Alcohol intake: never Comment: tolerable Patient Tobacco Use Status: Never used Tobacco Use of substances other than those prescribed or required for medical reasons: No Are you DNR?: No Advance Directives: No Advance Directives Information Provided: Yes Current occupational status: employed 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 [employer] Meds Allergies Allergy/AdvReac Type Severity Reaction Status Date / Time No Known Allergies Allergy Verified 04/15/23 09:38 Active Medications: Current Medications Lactated Ringer's (Lr) 1,000 mls @ 50 mls/hr IVCONT .Q20H ALBERTO Last Admin: 04/15/23 10:01 Dose: 50 mls/hr Home Medications Medication Instructions Recorded Confirmed Last Taken Type dulaglutide 0.75 mg/0.5 mL mg subcut QWEEK 03/23/23 03/26/23 History subcutaneous pen injector (Trulicity) valacyclovir 500 mg tablet 500 mg PO DAILY 03/23/23 03/23/23 Unknown History Exam Height,Weight and Vital Signs: Height 5 ft 6 in Weight 92.079 kg Last Vital Signs Temp 98.1 F 04/15/23 09:44 Pulse 73 04/15/23 09:44 Resp 15 04/15/23 09:44 BP 119/70 04/15/23 09:44 Pulse Ox 98 04/15/23 09:44 O2 Del Method Room Air 04/15/23 09:44 Airway Mallampati Class: III TM Dist: >3cm Neck ROM: Full Loose/Missing/Broken Teeth: Yes (many missing globally) Heart: [id number] Lungs: cta b/l Assessment and Plan Assessment Anesthesia Assessment: Anesthesia Plan Discussed and Chart Reviewed Final Anesthetic Review Family History of Problems with Anesthesia: No History of Problems with Anesthesia: No NPO: Yes ASA Class: II Final Preanesthetic Review: No Changes in Pt Med Stat, Meds/Allgs Chart Reviewed, Consent Obtained/Reviewed and Anes Risks/Benef Reviewed Patient Risk: Intermediate Procedure Risk: Intermediate Assessment/Block/Sedation in SS: Assess/Block/Sedation-SS Anesthetic Plan Anesthetic Plan: GA Disposition: Standard PACU
--- NOTE | 2023-04-15 10:50 | W.PM.OPN ---
Operative Note Operative Note Date of Service: 04/15/23 Narrative: Preoperative diagnosis: Chronic pain syndrome. Postoperative diagnosis: Same Procedure: Removal spinal cord stimulator including battery Surgeon: Oh Vale MD, PhD Auto Design Checker: Yossi rowland This 43-year-old female received a spinal cord stimulator for chronic pain syndrome. She states that the stimulator is causing her pain and she wants it removed. The procedure complications were explained. The patient was consented. The patient was brought to the operating room and endotracheally intubated. The patient was turned in a prone position on the Manoj frame. Prepping and draping was done followed by time-out. The physician journeyman operator assistant opened the incision above the right iliac crest, expose the battery and disconnected the battery from the leads. I opened up to the mid lumbar incision. I identified the connectors that were sutured. I removed the sutures. Then I was able to retrieve the epidural leads in 1 piece. The physician journeyman operator assistant closed the incisions in 2 layers with an 0 Vicryl for the fascia and 3-0 Vicryl subdermal layer. Steri-Strips used to approximate seizure. An op-site were taken there was used to cover the incisions. All sponge and needle counts were correct. Patient was extubated and transported in stable condition to recovery room. Anesthesia: General Blood loss: Minimal Complications: None Specimen: None Surgical time: 15 minutes Disposition: Discharge home
--- NOTE | 2023-04-15 10:57 | PM.DS ---
DS: Providers Provider Date of Service: 04/15/23 Date of discharge: 04/15/23 Primary care physician: Regine Baird MD Admitting clinician: Oh Vale DS: Diagnosis Discharge Diagnosis (1) Spinal cord stimulator dysfunction: Status: Acute DS: Summary Time Attestation Discharge coordination time: Less than 30 minutes Quality: Safe Use of Opioids Does Pt have an Active Cancer Diagnosis on the Problem List?: No Quality: Stroke Does the patient have a stroke diagnosis?: No Physical Exam Vital Signs: Vital Signs: Last Vital Signs Temp 98.1 F 04/15/23 09:44 Pulse 73 04/15/23 09:44 Resp 15 04/15/23 09:44 BP 119/70 04/15/23 09:44 Pulse Ox 98 04/15/23 09:44 O2 Del Method Room Air 04/15/23 09:44 BMI result Body Mass Index 32.8 Discharge Plan Discharge Patient Disposition: Home, Self-Care Referrals: Regine Baird MD [Primary Care Provider] - 1 Week Discharge Medications: New docusate sodium [Colace] 100 mg capsule 100 mg PO BID Qty: 20 0RF oxycodone 5 mg tablet 5 mg PO Q4H PRN (Reason: pain) Qty: 20 0RF Rx Instructions: Partial Fill upon patient request. Continued albuterol sulfate 90 mcg/actuation HFA aerosol inhaler 2 puff inhalation QID PRN (Reason: shortness of breath or wheezing) Qty: 8.5 0RF valacyclovir 500 mg tablet 500 mg PO DAILY Trulicity 0.75 mg/0.5 mL pen injector subcut QWEEK Discharge Orders: Discharge Order (Routine); Ordered 04/15/23 Ordered By: Yossi Martinez Diet: Advance to usual diet Activity on Discharge: As tolerated Activity Restrictions/Additional Instructions: After your spinal surgery we ask you to observe the following restrictions/guidelines: Activity: It is normal to feel some discomfort as you increase your activity, but that will improve with time. We ask you avoid heavy lifting or acitivities that cause pain. As a general rule, 8lbs is a safe limit for lifting right after surgery. Walk as much as you feel comfortable but not to exhaustion. You will feel extra tired the first few days after surgery. Stay well hydrated. It is OK to walk up and down stairs You may return to driving when you are off narcotics (such as vicodin, oxycodone, dilaudid, etc), and you are back to normal functional capacity. If you have any concerns please check with office before driving. Return to work is specific to each patient and each surgery, so please speak with your doctor/PA at first follow up. Please bring paperwork such as FMLA at that time if you need it filled out. Medications: For optimum pain control, it is best to start with a combination of 500 mg of Tylenol every 4 hours with 600 mg of Motrin every 8 hours, and use narcotics as needed in between for breakthrough pain. We will give you a short supply of narcotics after surgery (usually one weeks worth). If you need more please call the office but do not use more than prescribed. You will need to give our office 48 hours notice if you need narcotics refilled and we do not fill narcotics on weekends or evenings. If you are on a narcotic, it is a good idea to take a stool softener such as colace or senna to avoid constipation If you take blood thinner such as aspirin, Plavix, Coumadin, Effient, Eliquis etc for conditions such as Afib, DVT, Pulmonary embolus, coronary disease, stents etc please speak with your surgeon about specific details as to when you can resume these medications. You can resume NSAIDs on post op day 1 (eg: Motrin, Naproxen, etc). Follow up: Please call the office, , after surgery to arrange a 3 week follow up for wound check. Wound Care: You may remove your dressing on the first day after surgery. ?You may ?leave open to air. Please do not remove the steri strips underneath. they will fall off on their own in one week. IT IS NORMAL FOR THE WOUND TO OOZE OR BE BLOODY FOR A FEW DAYS AFTER SURGERY. ?IF THIS HAPPENS JUST PLACE NEW DRESSING OVER IT TO AVOID STAINING CLOTHES. You may shower on post op day # 1 We ask that you do not let the water soak the wound. If it does get wet, just towel dry lightly. Please do not scrub your incision or place any type of chemical/ointment on the wound. No tub baths, pools or jacuzzis for one month. If you have any leaking or redness from your wound, or fevers, please call office
[2023-04-15] MEDS: ondansetron HCL 4 MG/2 ML VIAL IVPUSH (12:04)
== END 2023-04-15 14:07 | disposition home or self-care (01) ==
PROVIDERS: PCP Internal Medicine; Visit Provider Neurological Surgery
PROC: (CPT 63662; principal; 2023-04-15 11:30)
DX: T85.840A Pain due to nervous system prosthetic devices, implants and grafts, initial encounter (principal); G89.4 Chronic pain syndrome; M54.50 Low back pain, unspecified; M54.16 Radiculopathy, lumbar region; M47.816 Spondylosis without myelopathy or radiculopathy, lumbar region; M96.1 Postlaminectomy syndrome, not elsewhere classified; Z79.85 Long-term (current) use of injectable non-insulin antidiabetic drugs; Z79.899 Other long term (current) drug therapy; Y75.2 Prosthetic and other implants, materials and neurological devices associated with adverse incidents
CPT/HCPCS: 63662; 63688; J0131; J0690; J1100; J1170; J1885; J2250; J2405; J2704; J3010

== ENCOUNTER → 2023-04-15 09:30 | Outpatient (BNV) | payer OTHER, SELFPAY | PROVIDERS: PCP Internal Medicine; Visit Provider Neurological Surgery | DX: T85.192A Other mechanical complication of implanted electronic neurostimulator of spinal cord electrode (lead), initial encounter (principal) | CPT/HCPCS: 63662; 63688; 99499 ==

== ENCOUNTER 2023-05-12 14:23 | Outpatient (AMB) | payer OTHER, SELFPAY ==
--- NOTE | 2023-05-12 14:26 | A.SPINEOV_ITS ---
Intake Intake Visit Reasons: 1st post op Intake Note: Ms. Werner is here today for 1st Post op. Business And Marketing Teacher Required: No Allergies No Known Allergies Allergy (Verified 04/15/23 09:38) Assessment & Plan Assessment & Plan (1) Left lumbar radiculopathy: Code(s): M54.16 - Radiculopathy, lumbar region Plan Procedure: Spinal cord stimulator removal Samira comes in today for her 1st postoperative visit. She reports that she continues to have muscle pain in her mid to low back since her spinal cord stimulator was removed. We discussed the postoperative healing course, which is relatively fairly brief for spinal cord stimulator removal. I believe it sibley to send her for a course of physical therapy at this time for strength training and gentle range of motion/body work. She was agreeable to this and referral was placed for [facility] physical therapy. I would like her to start physical therapy and do a couple of sessions before attempting to return back to work. I wrote her a letter for a return to work date 2 weeks out from her current date. No new neurological deficits. Sensation grossly intact. Patient is able to ambulate well, rises from a seated position without difficulty. Incision sites are closed, well healing, with no signs of drainage. Samira may follow-up on an as-needed basis going forward. She may be discharged as a patient will follow up with physical therapy. Herbie Vale MD,PhD [facility] Orders: Orders PT Evaluation and Treatment Today M54.16 - Radiculopathy, lumbar region Coding Level of Care Code Global (78003) Diagnoses Left lumbar radiculopathy M54.16
== END 2023-05-12 14:43 | disposition home or self-care (01) ==
PROVIDERS: PCP Internal Medicine; Visit Provider Physician Assistant
DX: M54.16 Radiculopathy, lumbar region (principal)
CPT/HCPCS: 99024

== ENCOUNTER → 2023-05-12 14:23 | Outpatient (BNVA) | payer MEDICAID, SELFPAY | PROVIDERS: PCP Internal Medicine; Visit Provider Physician Assistant | DX: M54.16 Radiculopathy, lumbar region (principal) | CPT/HCPCS: 99212 ==

== ENCOUNTER 2023-05-14 10:26 | Emergency (ER) | payer MEDICAID, SELFPAY ==
[2023-05-14 10:37] VITALS: BP 109/64; PULSE 78; RESP 15; TEMP 36.6; O2SAT 99; BMI 32.1
--- NOTE | 2023-05-14 10:38 | ED_ITS ---
HPI - General Adult General Chief complaint: Upper Respiratory Symptoms Stated complaint: sore throat Time Seen by Provider: 05/14/23 10:37 Source: patient Mode of arrival: ambulatory Limitations: no limitations History of Present Illness HPI narrative: Patient is a 43 year old female with a history of chronic back pain, presents to the ED with a 1 week history of a sore throat, chills, HALL, cough, and post nasal drip. Patient states that her sore throat has worsened over the past couple of days. Patient reports her children and grandchildren were diagnosed with COVID- 19 a week ago, around the onset of her symptoms. Patient reports being tested for COVID-19 around that time but results were negative. No recent antibiotic use. MD complaint: Flu-like symptoms Onset (ago): week(s) (1) Location: neck (sore throat) Radiation: non-radiation Severity: mild Severity scale (1-10): 2 Quality: burning Pain Consistency: constant Relieving factors: none Exacerbating factors: other (swallowing) Associated symptoms: cough, fever/chills and headaches Treatments prior to arrival: none Related Data Home Medications Medication Instructions Recorded Confirmed dulaglutide 0.75 mg/0.5 mL mg subcut QWEEK 03/23/23 subcutaneous pen injector (Trulicity) valacyclovir 500 mg tablet 500 mg PO DAILY 03/23/23 03/23/23 Previous Rx's Medication Instructions Recorded albuterol sulfate 90 mcg/actuation 2 puff inhalation QID PRN 12/24/21 aerosol inhaler shortness of breath or wheezing #8.5 grams docusate sodium 100 mg capsule 100 mg PO BID #20 caps 04/15/23 (Colace) oxycodone 5 mg tablet 5 mg PO Q4H PRN pain #20 tabs 04/15/23 Allergies Allergy/AdvReac Type Severity Reaction Status Date / Time No Known Allergies Allergy Verified 04/15/23 09:38 Review of Systems Constitutional: Constitutional: Reports body ache(s), Reports chills, Denies fever(s), Reports headache(s) and Denies night sweats Eyes: Eyes: Reports no additional eye complaints, Denies blurry vision, Denies change in vision, Denies diplopia, Denies eye discharge, Denies loss of vision and Denies eye pain ENT: Denies dizziness, Reports headache(s) and Reports sore throat Cardiovascular: Cardiovascular: Reports no additional cardiovascular complaints, Denies chest pain, Denies lightheadedness, Denies Loss of Consciousness and Denies dyspnea Respiratory: Respiratory: Reports cough, Reports pain with cough and Denies dyspnea Gastrointestinal: Gastrointestinal: Reports no additional gastrointestinal complaints, Denies abdominal pain, Denies melena, Denies hematochezia, Denies change in bowel habits and Denies change in stool character Genitourinary: Genitourinary: Denies hematuria, Denies urinary frequency, Denies dysuria, Denies urinary incontinence, Denies urinary hesitancy and Denies urinary urgency Musculoskeletal: Musculoskeletal: Reports no additional musculoskeletal complaints, Denies numbness and Denies tingling Neurologic: Denies dizziness, Reports headache(s), Denies loss of vision, Denies numbness and Denies tingling Psychiatric: Psychiatric: Reports no additional psychiatric complaints Endocrine: Endocrine: Reports no additional endocrine complaints Hematologic/Lymphatic: Hematologic/Lymphatic: Reports no additional hematologic/lymphatic complaints Allergic/Immunologic: Allergic/Immunologic: Reports no additional allergic/immunologic complaints PMFSH Past Medical History Attestation statement: The following information was validated with the patient. Source: old records reviewed and nursing notes reviewed Medical History Seasonal allergies Chronic back pain Asthma Depression Anxiety Surgical History Hx laparoscopic cholecystectomy History of bunionectomy Hx of bilateral breast reduction surgery History of bilateral tubal ligation History of lumbar laminectomy S/P placement of nerve stimulator Social History Social History Alcohol intake: never Comment: counts correct Patient Tobacco Use Status: Never used Tobacco Smoked in Last 30 Days: No Use of substances other than those prescribed or required for medical reasons: No Advance Directives: Yes Advance Directives Information Provided: Yes Advance Directives on File: No Current occupational status: employed 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 ED Vital Signs: Vital Signs - 24 hr 05/14/23 10:37 05/14/23 10:42 Temperature 98 F Pulse Rate 78 Respiratory Rate 15 Blood Pressure 109/64 Pulse Oximetry 99 99 Oxygen Delivery Method Room Air Room Air BMI result Body Mass Index 32.1 Const General: cooperative, no acute distress, alert and awake Nutritional Appearance: average body habitus Orientation/consciousness: patient oriented x3 Limitations: no limitations HENMT Head: Yes normal to inspection Ears: hearing grossly normal bilaterally General nose exam: Normal external nose present Face and sinus: Yes normal facial exam Mouth: moist mucous membranes Eyes General: appearance normal, both eyes and all related structures Periorbital: periorbital findings normal Eyelids: Yes eyelids normal Conjunctivae: conjunctivae normal Pupils: Equal, round and reactive pupils present EOM: EOMs intact bilaterally Neck Neck: Yes normal visual inspection, Yes full ROM and Yes no lymphadenopathy Chest Chest palpation & inspection: normal inspection of the chest Resp Effort & Inspection: normal respiratory effort and able to speak in complete sentences Auscultation: clear to auscultation bilaterally GI Inspection: Yes normal to inspection Neuro General: patient oriented x3 Cranial nerves: Yes Equal, round and reactive pupils present Cognition (Neuro): normal cognition Motor exam (neuro): 5/5 motor strength present throughout Sensory Exam: Normal double simultaneous stimulation for sensation Coordination: [id number] test normal Extrem General: Yes normal to inspection, Yes full ROM and Yes capillary refill normal Psych Appearance: grossly normal Mental Status: mental status grossly normal Affect: normal affect Attitude: cooperative Thought process: Normal thought process present Thought content: Normal thought content present Insight: Good insight present (Psych) Medical Decision Making Medical Decision Making MDM Narrative: Patient is a 43 year old assigned female at with a history of chronic low back pain presenting to the emergency department today feeling generally unwell with URI symptoms. Patient's physical exam was unremarkable. Patient's COVID-19 test was positive. Patient's influenza, RSV, and strep swabs were negative. I explained my physical exam findings as well as all test results to the patient. I answered all questions asked by the patient. I stressed the importance of the patient taking her medication as prescribed. I stressed the importance of the patient following up with her primary care provider. I stressed the importance of the patient returning to the emergency department immediately if her symptoms were to worsen or if she were to develop any dizziness, shortness of breath, difficulty breathing, chest pain, blurry vision, loss of vision, nausea, vomiting, abdominal pain, fever, chills, back pain, or any other complaints. Patient verbalized agreement and understanding with this treatment plan and discharge. Differential Diagnosis Differential Diagnoses: The differential diagnosis associated with the presentation includes COVID-19 Influenza Strep pharyngitis Pharyngitis Viral illness URI Admission/Observation Consideration of admission/observation: Escalation of care including admission/observation considered Patient would have been admitted to the hospital had her work up had any findings where hospital admission was appropriate and her clinical presentation warranted hospital admission. Lab Data [facility] Lab Attestation statement: I reviewed the patient's lab results. My interpretation of these results are in the [facility] Rationale portion of this note. Labs: Lab Results 05/14/23 Range/Units 10:52 Influenza Type A (PCR) NEGATIVE (Negative) Influenza Type B (PCR) NEGATIVE (Negative) RSV RNA Qual (PCR) NEGATIVE (Negative) SARS-CoV-2 RNA (RT-PCR) POSITIVE A (Negative) S. pyogenes GrpA JEANNIE Negative (Negative) Discharge Plan Discharge Clinical Impression: COVID-19 Patient Disposition: Home, Self-Care Instructions: COVID-19 (Coronavirus Disease 2019) (ED) Additional Instructions: Follow up with your primary care provider. Return to the emergency department immediately if your symptoms worsen or if you develop any dizziness, shortness of breath, difficulty breathing, chest pain, blurry vision, loss of vision, na usea, vomiting, abdominal pain, fever, chills, back pain, or any other complaints. Prescriptions: No Action albuterol sulfate 90 mcg/actuation HFA aerosol inhaler 2 puff inhalation QID PRN (Reason: shortness of breath or wheezing) Qty: 8.5 0RF valacyclovir 500 mg tablet 500 mg PO DAILY Trulicity 0.75 mg/0.5 mL pen injector subcut QWEEK docusate sodium [Colace] 100 mg capsule 100 mg PO BID Qty: 20 0RF oxycodone 5 mg tablet 5 mg PO Q4H PRN (Reason: pain) Qty: 20 0RF Rx Instructions: Partial Fill upon patient request. Referrals: [facility] Family Medicine [Provider Group] (Call to establish and follow up with a primary care provider. If you already have a primary care provider, please follow up with them.) [facility] Primary CareMary [Provider Group] (Call to establish and follow up with a primary care provider. If you already have a primary care provider, please follow up with them.) [facility] Primary CareCathy [Provider Group] (Call to establish and follow up with a primary care provider. If you already have a primary care provider, please follow up with them.) Stand Alone Forms: Work/School Release Print Language: Bermudian
[2023-05-14 10:42] VITALS: O2SAT 99
[2023-05-14 11:06] LABS: IDNOW Serial# 08D9AD1C; Strep A Nucleic Acid Negative (Negative)
[2023-05-14 11:34] LABS: Influenza A PCR NEGATIVE (Negative); Influenza B PCR NEGATIVE (Negative); Resp Syncy Virus RNA Qual PCR NEGATIVE (Negative); SARS COV2 PCR INHOUSE POSITIVE (Negative)
[2023-05-14 11:55] VITALS: BP 115/69; PULSE 80; RESP 16; TEMP 36.7; O2SAT 98
== END 2023-05-14 12:00 | disposition home or self-care (01) ==
PROVIDERS: Physician Assistant Medical; Emergency Provider Emergency Medicine Emergency Medical Services
DX: U07.1 COVID-19 (principal); J45.909 Unspecified asthma, uncomplicated
CPT/HCPCS: 0241U; 87651; 99284

== ENCOUNTER 2023-05-23 13:25 | Emergency (ER) | payer OTHER, SELFPAY ==
--- NOTE | ~2023-05-23 | XR_ITS ---
EXAMINATION: XR ABDOMEN KUB CLINICAL INDICATION: SBO COMPARISON: None available. TECHNIQUE: AP view of the abdomen. FINDINGS: There is scattered stool and gas seen throughout the colon without any significant distention. The small bowel loops are normal caliber. Surgical munira are seen right upper quadrant from previous cholecystectomy. No organomegaly. No radiopaque calculi. No gross bony abnormality. XR/XR KUB IMPRESSION: Mild constipation. No acute process seen.
[2023-05-23 14:13] VITALS: BP 123/78; PULSE 70; RESP 16; TEMP 36.1; O2SAT 100; BMI 31.8
--- NOTE | 2023-05-23 14:18 | ED.ABDPAIN ---
HPI - Abdominal Pain General Chief Complaint: Abdominal Pain Stated Complaint: nausea Time Seen by Provider: 05/23/23 18:04 Source: patient Mode of arrival: ambulatory Limitations: no limitations History of Present Illness HPI narrative: Patient is a 43-year-old female presenting to the emergency department with complaint of nausea since this morning. She reports history of chronic constipation but also fecal incontinence for which she sees [facility]. She reports that GI has her limiting her use of stool softners to prevent incontinence, but then she develops constipation, feels she has a motility issue. She called GI this week and was told she will likely need a repeat colonoscopy. She states he insurance was just recently reinstated. She denies abdominal pain, fevers. Denies dysuria, frequency, or other urinary symptoms. States the past 2 days she has felt the urge to have a bowel movement but has only been able to go small amounts. Uses enemas occasionally, last use was around 2 weeks ago. MD elicited complaint: other Pertinent past history: constipation and other Onset (ago): hour(s) Associated symptoms: nausea Treatments prior to arrival: other Related Data Home Medications Medication Instructions Recorded Confirmed dulaglutide 0.75 mg/0.5 mL mg subcut QWEEK 03/23/23 subcutaneous pen injector (Trulicity) valacyclovir 500 mg tablet 500 mg PO DAILY 03/23/23 03/23/23 Previous Rx's Medication Instructions Recorded albuterol sulfate 90 mcg/actuation 2 puff inhalation QID PRN 12/24/21 aerosol inhaler shortness of breath or wheezing #8.5 grams docusate sodium 100 mg capsule 100 mg PO BID #20 caps 04/15/23 (Colace) oxycodone 5 mg tablet 5 mg PO Q4H PRN pain #20 tabs 04/15/23 ondansetron 4 mg disintegrating 4 mg PO Q8H PRN nausea and 05/23/23 tablet vomiting #10 tabs polyethylene glycol 3350 17 17 g PO DAILY #119 grams 05/23/23 gram/dose oral powder (Miralax) Allergies Allergy/AdvReac Type Severity Reaction Status Date / Time No Known Allergies Allergy Verified 05/23/23 14:13 Review of Systems Review of Systems As per HPI. Yes all other systems are reviewed and are negative Constitutional: Reports as per HPI [facility] Past Medical History Medical History Seasonal allergies Chronic back pain Asthma Depression Anxiety Surgical History Hx laparoscopic cholecystectomy History of bunionectomy Hx of bilateral breast reduction surgery History of bilateral tubal ligation History of lumbar laminectomy S/P placement of nerve stimulator Social History Social History Alcohol intake: never Comment: counts correct Patient Tobacco Use Status: Never used Tobacco Smoked in Last 30 Days: No Use of substances other than those prescribed or required for medical reasons: No Advance Directives: No Advance Directives Information Provided: No Patient : No Current occupational status: employed 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 Blood pressure normal. Heart rate normal. Respiratory rate normal. Temperature normal. Oxygen saturation normal. Const General: cooperative, healthy appearing and no acute distress Orientation/consciousness: oriented to person, oriented to place, oriented to time and patient oriented x3 Limitations: no limitations HENMT Head: Yes normocephalic and Yes atraumatic Ears: external ears normal General nose exam: Normal external nose present Face and sinus: Yes face symmetric Mouth: oropharynx normal and moist mucous membranes Throat: Yes uvula midline Eyes Pupils: Equal, round and reactive pupils present Neck Neck: Yes normal visual inspection and Yes supple Resp Effort & Inspection: normal respiratory effort and able to speak in complete sentences Auscultation: clear to auscultation bilaterally Cardio Rate: regular rate Rhythm: regular rhythm Heart sounds: S1 normal heart sound present and S2 normal heart sound present GI Palpation (GI): Soft to palpation and nontender Auscultation: normoactive bowel sounds General: Yes no CVA tenderness Back/Spine/Pelvis Back: no CVA tenderness Skin General skin exam: elasticity normal and turgor normal Neuro General: oriented to person, oriented to place, oriented to time, patient oriented x3, moves all extremities, no focal motor deficits and CN's II-XI intact bilaterally Cranial nerves: Yes Equal, round and reactive pupils present Cognition (Neuro): normal cognition Extrem General: Yes full ROM, Yes no pedal edema and Yes no calf tenderness Psych Mental Status: mental status grossly normal Affect: normal affect Thought process: Normal thought process present Course Course Course Narrative: This is a rapid medical exam. Defer additional HPI, ROS, PE to primary provider. 43 yo female with history of back surgeries, asthma here with abdominal cramping, constipation and nausea. will obtain labs, KUB, UA VSS Medical Decision Making Medical Decision Making [facility] Narrative: Patient is a 43-year-old female presenting to the emergency department with complaint of nausea since this morning. On exam patient is awake, A+Ox3, nontoxic appearing, VS WNL, afebrile, normal neurological exam without focal deficits, physical exam findings as above. Given reported symptoms and physical exam findings, initial differential includes gastritis, GERD, constipation, viral illness. Labs unremarkable. Xray notable for mild constipation. No evidence of obstruction. My interpretation is in agreement with radiologist's interpretation. Patient able to tolerate po fluids in the ED. She is specifically requesting referral to [facility]. Will discharge with prescription for miralax, ondansetron. Will refer to GI. Return precautions discussed. Patient verbalized understanding of and agreement with plan. Differential Diagnosis Differential Diagnoses: The differential diagnosis associated with the presentation includes As per [facility] Admission/Observation Consideration of admission/observation: Escalation of care including admission/observation considered Lab Data [facility] Lab Attestation statement: I reviewed the patient's lab results. As per [facility] 05/23/23 14:33 05/23/23 14:33 Labs: Lab Results 05/23/23 05/23/23 Range/Units 14:33 19:38 WBC 7.4 (4.8-10.8) X10*3/uL RBC 4.03 L (4.20-5.50) X10*6/uL Hgb 12.5 (12.0-16.0) g/dl Hct 36.7 L (37.0-47.0) % MCV 91.1 (80.0-98.0) fL MCH 31.0 (27.0-33.0) pg MCHC 34.1 (31.0-35.0) g/dl RDW 11.8 (11.0-16.0) % Plt Count 346 D (160-400) X10*3/uL MPV 9.6 (9.4-12.3) fL Immature Gran % (Auto) 0.3 (0.0-0.4) % Neut % (Auto) 68.6 (45-73) % Lymph % (Auto) 24.6 (20-40) % Pershing % (Auto) 5.7 (2-11) % Eos % (Auto) 0.4 (0-4) % Baso % (Auto) 0.4 (0-2) % Lymph # (Auto) 1.8 (1.2-4.9) X10*3/uL Pershing # (Auto) 0.4 (0.1-1.2) X10*3/uL Eos # (Auto) 0.0 (0.0-0.4) X10*3/uL Baso # (Auto) 0.0 (0.0-0.2) X10*3/uL Abs Immat Gran (auto) 0.02 (0.00-0.03) X10*3/uL Absolute Neuts (auto) 5.1 (2.0-8.3) x10*3/uL Absolute Nucleated RBC 0.000 (0.0-0.012) X10*3/uL Nucleated RBC % (auto) 0.0 (0.0-0.2) /100WBC Sodium 140 (135-145) mmol/L Potassium 5.0 (3.3-5.1) mmol/L Chloride 107 (96-108) mmol/L Carbon Dioxide 27 (22-29) mmol/L Anion Gap 11 L (12-20) BUN 9 (9-16) mg/dL Creatinine 0.74 (0.5-1.4) mg/dL Estim Creat Clear Calc 108.0 Estimated GFR > 60 Random Glucose 84 (60-115) mg/dL Calcium 9.7 (8.4-10.2) mg/dL Total Bilirubin 1.0 (0.0-1.0) mg/dL Direct Bilirubin 0.2 (0.0-0.5) mg/dL AST 26 (5-31) U/L ALT 15 (0-31) U/L Alkaline Phosphatase 59 (39-117) U/L Total Protein 7.9 (6.5-8.0) g/dL Albumin 4.2 (3.5-5.0) g/dL Lipase 19 (8-78) U/L Beta HCG, Quant < 2 mIU/mL Urine Color Yellow Urine Appearance Clear Urine pH 6.5 (5.0-9.0) Ur Specific [place] 1.015 (1.005-1.025) Urine Protein Negative (Neg-Trace) mg/dL Urine Glucose (UA) Negative (Negative) mg/dL Urine Ketones Negative (Negative) mg/dL Urine Blood Negative (Negative) Urine Nitrite Negative (Negative) Ur Leukocyte Esterase Negative (Negative) Urine Test NEGATIVE (NEGATIVE) Independent Interpretation I performed an independent interpretation of an: Plain X-Ray Interpretation: Mild constipation, no evidence of obstruction on KUB. Radiology Impression Discussion of test interpretation with radiology: I have reviewed the radiologist's reading. Radiologist Impression: XR/XR KUB IMPRESSION: Mild constipation. No acute process seen. External Record Review External record reviewed: Inpatient record, Office record and Outpatient record Prescription Management I considered prescription management with: Other Medications Administered Discontinued Medications Generic Name Dose Route Start Last Admin Trade Name Freq PRN Reason Stop Dose Admin Al Hydroxide/Mg Hydroxide 30 ml 05/23/23 19:15 05/23/23 19:37 Magnesium Hydrox/Alum Hydrox 30 Ml Oral.Susp PO 05/23/23 19:16 30 ml ONCE ONE Administration Ondansetron HCl 4 mg 05/23/23 19:15 05/23/23 19:37 Ondansetron Odt 4 Mg Tab.Rapdis TRANSLINGU 05/23/23 19:16 4 mg ONCE ONE Administration Discharge Plan Discharge Clinical Impression: Constipation, Nausea Patient Disposition: Home, Self-Care Instructions: Constipation (DC), Acute Nausea and Vomiting (ED) Additional Instructions: You were evaluated in the emergency department today for nausea. Your x-ray showed evidence of constipation. You are being prescribed Zofran for nausea and MiraLax for constipation. You are being referred to the college advisor, please call their office to schedule an appointment. Return to the emergency department if you develop severe abdominal pain, persistent vomiting, fever 100.4? F or greater or any other concerning symptoms. Prescriptions: New ondansetron 4 mg tablet,disintegrating 4 mg PO Q8H PRN (Reason: nausea and vomiting) Qty: 10 0RF polyethylene glycol 3350 [Miralax] 17 gram/dose powder 17 g PO DAILY Qty: 119 0RF No Action albuterol sulfate 90 mcg/actuation HFA aerosol inhaler 2 puff inhalation QID PRN (Reason: shortness of breath or wheezing) Qty: 8.5 0RF valacyclovir 500 mg tablet 500 mg PO DAILY Trulicity 0.75 mg/0.5 mL pen injector subcut QWEEK docusate sodium [Colace] 100 mg capsule 100 mg PO BID Qty: 20 0RF oxycodone 5 mg tablet 5 mg PO Q4H PRN (Reason: pain) Qty: 20 0RF Rx Instructions: Partial Fill upon patient request. Referrals: [facility] Gastroenterology Services [Provider Group]
[2023-05-23 14:36] LABS: MANUAL DIFF FLAG NO
[2023-05-23 14:38] LABS: Basophils Percent Auto 0.4 % (0-2); Eosinophils Percent Auto 0.4 % (0-4); Hematocrit 36.7 % (37.0-47.0); Hemoglobin 12.5 g/dl (12.0-16.0); Imm Gran Abs Auto 0.02 X10*3/uL (0.00-0.03); Imm Gran Pct Auto 0.3 % (0.0-0.4); Lymphocytes Absolute Auto 1.8 X10*3/uL (1.2-4.9); Lymphocytes Percent Auto 24.6 % (20-40); Mean Corpuscular HGB Conc 34.1 g/dl (31.0-35.0); Mean Corpuscular Volume 91.1 fL (80.0-98.0); Mean Platelet Volume 9.6 fL (9.4-12.3); Monocytes Absolute Auto 0.4 X10*3/uL (0.1-1.2); Monocytes Percent Auto 5.7 % (2-11); Neutrophils Absolute Auto 5.1 x10*3/uL (2.0-8.3); Neutrophils Percent Auto 68.6 % (45-73); Platelet Count 346 X10*3/uL (160-400); Red Blood Count 4.03 X10*6/uL (4.20-5.50); Red Cell Distribution Width 11.8 % (11.0-16.0); White Blood Count 7.4 X10*3/uL (4.8-10.8)
[2023-05-23 14:53] LABS: Alanine Aminotransferase 15 U/L (0-31); Albumin Level 4.2 g/dL (3.5-5.0); Alkaline Phosphatase 59 U/L (39-117); Anion Gap 11 (12-20); Aspartate Amino Transferase 26 U/L (5-31); Bilirubin Direct 0.2 mg/dL (0.0-0.5); Blood Urea Nitrogen 9 mg/dL (9-16); Calcium 9.7 mg/dL (8.4-10.2); Carbon Dioxide 27 mmol/L (22-29); Chloride 107 mmol/L (96-108); Estimated Glomerular Filt Rate > 60; Glucose Random 84 mg/dL (60-115); Lipase 19 U/L (8-78); Sodium 140 mmol/L (135-145); Total Protein 7.9 g/dL (6.5-8.0)
[2023-05-23 18:31] LABS: HCG Quantitative < 2 mIU/mL
--- NOTE | 2023-05-23 19:32 | PC.NURSE ---
Assumed care of pt. Pt [place] washburn, denies pain at this time, endorsing nausea and feeling of pressure in bowels.
[2023-05-23 19:37] VITALS: BP 113/42; PULSE 55; RESP 16; O2SAT 99
[2023-05-23] MEDS: Ondansetron ODT 4 MG TAB.RAPDIS TRANSLINGU (19:37)
[2023-05-23] MEDS: Magnesium Hydrox/Alum Hydrox 30 ML ORAL.SUSP PO (19:37)
[2023-05-23 19:47] LABS: Appearance Urine Clear; Color Urine Yellow; Glucose Urine UA Negative (Negative); Leukocyte Esterase Urine Negative (Negative); Nitrite Urine Negative (Negative); PH 6.5 (5.0-9.0); Specific Gravity - Urine 1.015 (1.005-1.025); Urine Blood Negative (Negative); Urine Ketones Negative (Negative); Urine Protein Negative (Neg-Trace)
[2023-05-23 19:48] LABS: UPreg QC Valid YES; Urine Pregnancy NEGATIVE (NEGATIVE)
== END 2023-05-23 20:18 | disposition home or self-care (01) ==
PROVIDERS: Nurse Practitioner Family; Registered Nurse Emergency; Emergency Provider Emergency Medicine
DX: K59.00 Constipation, unspecified (principal); R11.2 Nausea with vomiting, unspecified; R10.30 Lower abdominal pain, unspecified; Z79.899 Other long term (current) drug therapy
CPT/HCPCS: 36415; 74018; 80048; 80076; 81003; 81025; 83690; 84702; 85025; 99283; 99284

== ENCOUNTER 2023-06-14 13:35 | Outpatient (AMB) | payer OTHER, SELFPAY ==
--- NOTE | 2023-06-14 13:55 | MHC.OFFVIS ---
Intake Vital Signs 06/14/23 14:07 Height 5 ft 6 in Weight 197 lb 2 oz BMI 31.8 BP 116/80 Blood Pressure Location Lt brachial Position Sitting Respiration 16 Pulse 76 Pulse Source Pulse Oximeter Pulse Oximetry (%) 98 Oxygen Delivery Method Room Air Intake Visit Reasons: LOW BACK PAIN Intake Note: Patient comes in for low back pain. Reports pain 6/10. Allergies No Known Allergies Allergy (Verified 06/14/23 14:07) HPI HPI Comments History of Present Illness Details Samira is in the office today to discuss for the development of her symptoms. She reports that she started to develop incontinence. She even went to incontinence clinic in [facility]. The planning to do some sort of a sacral stimulation to help her incontinence however the patient reports incontinence with urine and stool without awareness. Neurological bladder and neurological rectum suspected. I will schedule this patient for MRI of the lumbar spine. This patient has had a tumor schwannoma removed by a neurosurgeon. She might develop another schwannoma in her spinal canal. She also reported pain in the projection of the right sacroiliac joint. Yash test is positive on the right. Pelvic distraction test is positive on the right. Pelvic compression test is also positive on the right. All those are negative on the left. I offered her diagnostic right sacroiliac joint injection. I will see her for the appointment here. a widespread pains most located to the left side of the pelvis.? She reports pain in the projection of ASIS.? She reports pain radiating to the groin.? She reports pain in the projection of the sacroiliac joint.? She reports that because of her pain she is not sleeping well at night.? 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 She does not report that she is sleeping for at least 7 hours in a row.? She takes a little bit of sleep here and there during the daytime.? She reports that she cannot change her shift for the morning and daytime because it is much more intense and she cannot tolerate this kind of intense work.? We agreed that I will send her for hip x-ray.? I told her that she needs to adhere to 7 hours of the day sleep routine.? She can take tizanidine which she has at home for the purpose of sleep time relaxation.? On physical exam positive Gaenslen test in positive Yash test as well as 14 finger test are demonstrating right sacroiliitis.? I offered her right sacroiliac joint diagnostic injection however she refused.? She is asking me questions about how she returns to work.? She still needs to stay with those limitations for 3 more weeks.? After that she can gradually expand her physical activity with slow increase of the weight by 5 lb a week.? She was referred to physical therapy to treat her pain.? She was sent to x-ray in the emergency room which demonstrated normal lumbar spine and position of spinal cord stimulator in proper alignment in the lumbar and thoracic spine.? This device was inserted by me into her thoracic spine to alleviate pain in the right lower extremity status post schwannoma removal by Dr. Guerrero from [place].? The pain she presented with the today a new pain and not related to the pain the SCS machine was inserted for.? During the short conversation today I tried to evaluate her pain by directing her to perform Yash maneuver.? It seem to be that Yash is positive however I would need to repeated physical in my office to make a decision if this is the case.? I recommend her to schedule an appointment with me in person.? She requests me to send her to physical therapy.? I will do so.? I also recommended her to get into contact with [employer] outside sales representative insurance and try to adjust stimulation with possibility of spreading of the stimulation to cover her pain. Prior: ? SCS implant [employer] 03/04/2022.? Prior: She underwent a right S1 hemilaminectomy and removal of a nerve sheath tumor in November [address] Guerrero. Immediately after surgery she had recovered well and had resolution of her pain for 6 months. She reports a new right sided low back pain had started about two months ago and denies any inciting events.? She reports progressively worsening right lower extremity pain, she reports inability to stand for prolonged period of time.? She thinks that she feel herself the same very way as she felt before her surgery by Dr. Guerrero.? She requests me to send her for repeat MRI of the lumbar spine and sacral bone to evaluate if the schwannoma which was removed by Dr. Guerrero is not growing back.? At the same time she wants me to implant [employer] spinal cord stimulator to help her pain.? She reports that her trial of [employer] SCS resulted in 85% pain improvement. 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 Review of Systems Const All systems reviewed & are unremarkable except as noted in HPI and below Physical Exam Vital Signs: Last Vital Signs Pulse 76 06/14/23 14:07 Resp 16 06/14/23 14:07 BP 116/80 06/14/23 14:07 Pulse Ox 98 06/14/23 14:07 Oxygen Delivery Method Room Air 06/14/23 14:07 BMI result Body Mass Index 31.8 Const General: cooperative and no acute distress Orientation/consciousness: patient oriented x3 Resp Effort & Inspection: normal respiratory effort, able to speak in complete sentences and no audible wheezes Cardio Jugular venous distension: no JVD GI Inspection: Yes normal to inspection Back/Spine/Pelvis Other: Bending forward and bending backwards both significantly painful. Bending backwards brings more pain than bending forward. Bending sideways also aggravates her pain. Yash test and Gaenslen test positive on the left. Neuro General: patient oriented x3 Assessment & Plan Assessment & Plan (1) Schwannoma of nerve of pelvis: Code(s): D36.16 - Benign neoplasm of peripheral nerves and autonomic nervous system of pelvis (2) Post-laminectomy syndrome: Code(s): M96.1 - Postlaminectomy syndrome, not elsewhere classified (3) Low back pain: Code(s): M54.50 - Low back pain, unspecified (4) Spondylosis of lumbar region without myelopathy or radiculopathy: Code(s): M47.816 - Spondylosis without myelopathy or radiculopathy, lumbar region (5) Lumbar radiculopathy, right: Code(s): M54.16 - Radiculopathy, lumbar region (6) Spondylosis of lumbar spine: Code(s): M47.816 - Spondylosis without myelopathy or radiculopathy, lumbar region (7) S/P lumbar laminectomy: Code(s): Z98.890 - Other specified postprocedural states (8) Bilateral hip joint arthritis: Code(s): M16.0 - Bilateral primary osteoarthritis of hip (9) Sacroiliac joint dysfunction of right side: Code(s): M53.3 - Sacrococcygeal disorders, not elsewhere classified (10) Schwannoma of spinal cord: Code(s): D33.4 - Benign neoplasm of spinal cord (11) Sacroiliitis: Code(s): M46.1 - Sacroiliitis, not elsewhere classified (12) Sacroiliac joint dysfunction of right side: Code(s): M53.3 - Sacrococcygeal disorders, not elsewhere classified Plan Possibility exists that the patient is having to concurrently existing pathologist. For incontinence with bowel and bladder maybe related to growth of new schwannoma or regrowth of the schwannoma in the pelvis. Her pain in the projection of the sacroiliac joint on the right maybe completely different issue. I will send her for MRI of the lumbar spine with contrast. I also will send schedule her for diagnostic sacroiliac joint injection. I will see her in the office after the injection. Hopefully her MRI will be ready at that time. Orders: Orders MR lumbar spine w con Today D33.4 - Benign neoplasm of spinal cord, M96.1 - Postlaminectomy syndrome, not elsewhere classified Coding Level of Care Code Est Pt Level 3 (30609) Diagnoses Schwannoma of nerve of pelvis D36.16 Post-laminectomy syndrome M96.1 Low back pain M54.50 Spondylosis of lumbar region without myelopathy or radiculopathy M47.816 Lumbar radiculopathy, right M54.16 Spondylosis of lumbar spine M47.816 S/P lumbar laminectomy Z98.890 Bilateral hip joint arthritis M16.0 Sacroiliac joint dysfunction of right side M53.3 Schwannoma of spinal cord D33.4 Sacroiliitis M46.1
[2023-06-14 14:07] VITALS: BP 116/80; PULSE 76; RESP 16; O2SAT 98; BMI 31.8
== END 2023-06-14 14:29 | disposition home or self-care (01) ==
PROVIDERS: Visit Provider Anesthesiology
DX: D36.16 Benign neoplasm of peripheral nerves and autonomic nervous system of pelvis (principal); M96.1 Postlaminectomy syndrome, not elsewhere classified; M54.50 Low back pain, unspecified; M47.816 Spondylosis without myelopathy or radiculopathy, lumbar region; M54.16 Radiculopathy, lumbar region; Z98.890 Other specified postprocedural states; M16.0 Bilateral primary osteoarthritis of hip; M53.3 Sacrococcygeal disorders, not elsewhere classified; D33.4 Benign neoplasm of spinal cord; M46.1 Sacroiliitis, not elsewhere classified
CPT/HCPCS: 99213

== ENCOUNTER → 2023-06-14 13:35 | Outpatient (BNVA) | payer OTHER, SELFPAY | PROVIDERS: Visit Provider Anesthesiology | DX: M47.26 Other spondylosis with radiculopathy, lumbar region (principal); D36.16 Benign neoplasm of peripheral nerves and autonomic nervous system of pelvis; M96.1 Postlaminectomy syndrome, not elsewhere classified; M16.50 Unilateral post-traumatic osteoarthritis, unspecified hip; M53.3 Sacrococcygeal disorders, not elsewhere classified; M46.1 Sacroiliitis, not elsewhere classified; Z98.890 Other specified postprocedural states | CPT/HCPCS: 99212 ==

== ENCOUNTER 2023-06-23 14:03 | Outpatient (RCR) | payer OTHER, SELFPAY ==
--- NOTE | 2023-06-23 16:25 | MHC.PT.EP ---
[facility] [place] Office [place] [facility] [place] [facility] [address] [place] [address] [phone] F: [phone] F: [phone] F: [phone] F: [phone] Physical Therapy Plan of Care Date of Evaluation: 06/23/23 Date of Surgery: Diagnosis: lumbar radiculopathy (RL) Assessment: pt is a 43 y/o female presenting to physical therapy w/ referring diagnosis of radiculopathy, lumbar region. She does present w/ new onset urine and bowel incontinence. Her referring provider is aware as seen in the last follow-up note on 06/14/23 where an MRI was ordered. pt has not yet scheduled MRI. Stressed the importance of following through w/ MRI to assess nerve root impingement vs. cauda equina. Impairments include pain, decreased range of motion, decreased strength, impaired functional mobility, impaired postural awareness, and altered ambulation mechanics. pt is a fair candidate for skilled PT due to age, potential remediation of impairments, typical disease/condition progression and prognosis, comorbidities, and motivation. pt would benefit from skilled PT intervention to provide a tailored strengthening and stretching exercise program, functional training, gait training, postural re-training, neuromuscular re-education, modalities as needed for pain, equipment safety demonstration. Frequency and Duration: The patient will be seen 2x/wk for 4 wks Short Term Goals: pt will be I w/ HEP to promote self-management of condition. pt will demo proper sitting posture w/ lumbar roll to promote neutral spine w/ seated ADLs. pt will improve lumbar flexion to at least 85% to promote ease in lower body dressing. [employer] Extension Specialist Goals: pt will report a statistically significant improvement in self-reported outcome measure, Cherelle, to promote return to PLOF. pt will report <3/10 low back pain w/ standing for >30 min to promote pain-limited return to work-related tasks. pt will demo proper lifting mechanics for patient care tasks to promote neutral spine w/ work-related tasks. Treatment Plan: Modalities to reduce pain, spasms and effusion. Manual therapy to restore motion and function. Therapeutic exercise to improve strength and flexibility. Neuromuscular re-education for posture and balance. Therapeutic activities to return to functional activities of daily living. Electronically signed by: Day Magallanes PT, DPT Please sign and return to therapist. Thank you for your referral.
--- NOTE | 2023-07-16 10:25 | MHC.PT.DC ---
[facility] [place] Office [place] Office [place] Office [address] [place] [address] [phone] F: [phone] F: [phone] F: [phone] F: [phone] Physical Therapy Discharge Report Diagnosis: lumbar radiculopathy (RL) Date of Surgery: Date of Evaluation: 06/23/23 Date of Discharge: 07/16/23 Treatments to Date: 1 Cancellations to Date: 1 No Shows to Date: 3 Discharge Status: Recommend MD Follow-up Discharge Summary: Per evaluation on 06/23/23: pt is a 43 y/o female presenting to physical therapy w/ referring diagnosis of radiculopathy, lumbar region. She does present w/ new onset urine and bowel incontinence. Her referring provider is aware as seen in the last follow-up note on 06/14/23 where an MRI was ordered. pt has not yet scheduled MRI. Stressed the importance of following through w/ MRI to assess nerve root impingement vs. cauda equina. The patient did not follow-up with any PT appointments after her eval. I anticipated that obtaining the MRI was top priority and if it is clear she can continue with PT. Her current status is unknown. She is currently discharged. If she would like to return a new order will have to be placed. Electronically signed by: Day Magallanes PT, DPT Please sign and return to therapist. Thank you for your referral.
== END 2023-07-16 10:26 | disposition home or self-care (01) ==
LOC: HO.PT 14:03
PROVIDERS: PCP Pediatrics; Visit Provider Physician Assistant
DX: M54.16 Radiculopathy, lumbar region (principal)
CPT/HCPCS: 97162

== ENCOUNTER 2023-07-21 11:18 | Outpatient (AMB) | payer OTHER, SELFPAY ==
--- NOTE | 2023-07-21 11:20 | MHC.OFFVIS ---
Vital Signs 07/21/23 11:31 Height 5 ft 6 in Weight 190 lb 8 oz BMI 30.7 BP 114/78 Blood Pressure Location Lt brachial Position Sitting Respiration 16 Pulse 81 Pulse Source Pulse Oximeter Pulse Oximetry (%) 98 Oxygen Delivery Method Room Air Intake Visit Reasons: Nerve Pain Lower Back and Leg Intake Note: Patient comes in to discuss nerve pain. Allergies No Known Allergies Allergy (Verified 07/21/23 11:33) HPI Comments Details: Samira is in the office today to discuss for the development of her symptoms. She brought me the MRI which demonstrates a new tumor growth L5-S1 position. She told me that Dr. Guerrero in [place] wants to administer proton beam radiation to treat this tumor. Alternatively he may consider possibility of treating this pain with laminectomy and fusion. Samira requested me to send a referral to Dr. Guerrero which is impossible for me with new EMR system. I explained to her that. She told me that her primary care physician is trying to refer her to Dr. Guerrero as well. She also requested me to consider her as the patient for the pain pump. I explained briefly pain pump to the patient. However the same time in the past I had an impression that her pain might be coming from sacroiliitis. I offered her sacroiliac joint injection however the patient refused. I told her today that I do not mind to try pain pump on her. However before trying pain pump I need to perform sacroiliac joint injection on her. Only if sacroiliac joint injection will not result in good pain relief I will be doing the trials of I DDD. Her pain is in the projection of the right sacroiliac joint. Yash test is positive on the right. Pelvic distraction test is positive on the right. Pelvic compression test is also positive on the right. All those are negative on the left. I offered her diagnostic right sacroiliac joint injection. a widespread pains most located to the left side of the pelvis.? She reports pain in the projection of ASIS.? She reports pain radiating to the groin.? She reports pain in the projection of the sacroiliac joint.? She reports that because of her pain she is not sleeping well at night.? 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 She does not report that she is sleeping for at least 7 hours in a row.? She takes a little bit of sleep here and there during the daytime.? She reports that she cannot change her shift for the morning and daytime because it is much more intense and she cannot tolerate this kind of intense work.? We agreed that I will send her for hip x-ray.? I told her that she needs to adhere to 7 hours of the day sleep routine.? She can take tizanidine which she has at home for the purpose of sleep time relaxation.? On physical exam positive Gaenslen test in positive Yash test as well as 14 finger test are demonstrating right sacroiliitis.? I offered her right sacroiliac joint diagnostic injection however she refused.? She is asking me questions about how she returns to work.? She still needs to stay with those limitations for 3 more weeks.? After that she can gradually expand her physical activity with slow increase of the weight by 5 lb a week.? She was referred to physical therapy to treat her pain.? She was sent to x-ray in the emergency room which demonstrated normal lumbar spine and position of spinal cord stimulator in proper alignment in the lumbar and thoracic spine.? This device was inserted by me into her thoracic spine to alleviate pain in the right lower extremity status post schwannoma removal by Dr. Guerrero from [place].? The pain she presented with the today a new pain and not related to the pain the SCS machine was inserted for.? During the short conversation today I tried to evaluate her pain by directing her to perform Yash maneuver.? It seem to be that Yash is positive however I would need to repeated physical in my office to make a decision if this is the case.? I recommend her to schedule an appointment with me in person.? She requests me to send her to physical therapy.? I will do so.? I also recommended her to get into contact with [employer] new accounts representative and try to adjust stimulation with possibility of spreading of the stimulation to cover her pain. Prior: ? SCS implant [employer] 03/04/2022.? Prior: She underwent a right S1 hemilaminectomy and removal of a nerve sheath tumor in November [address] Guerrero. Immediately after surgery she had recovered well and had resolution of her pain for 6 months. She reports a new right sided low back pain had started about two months ago and denies any inciting events.? She reports progressively worsening right lower extremity pain, she reports inability to stand for prolonged period of time.? She thinks that she feel herself the same very way as she felt before her surgery by Dr. Guerrero.? She requests me to send her for repeat MRI of the lumbar spine and sacral bone to evaluate if the schwannoma which was removed by Dr. Guerrero is not growing back.? At the same time she wants me to implant [employer] spinal cord stimulator to help her pain.? She reports that her trial of [employer] SCS resulted in 85% pain improvement. 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 Review of Systems Const All systems reviewed & are unremarkable except as noted in HPI and below Physical Exam Vital Signs: Last Vital Signs Pulse 81 07/21/23 11:31 Resp 16 07/21/23 11:31 BP 114/78 07/21/23 11:31 Pulse Ox 98 07/21/23 11:31 Oxygen Delivery Method Room Air 07/21/23 11:31 BMI result Body Mass Index 30.7 Const General: cooperative and no acute distress Orientation/consciousness: patient oriented x3 Resp Effort & Inspection: normal respiratory effort, able to speak in complete sentences and no audible wheezes Cardio Jugular venous distension: no JVD GI Inspection: Yes normal to inspection Back/Spine/Pelvis Other: Bending forward and bending backwards both significantly painful. Bending backwards brings more pain than bending forward. Bending sideways also aggravates her pain. Yash test and Gaenslen test positive on the right Neuro General: patient oriented x3 Assessment & Plan Assessment & Plan (1) Schwannoma of nerve of pelvis: Code(s): D36.16 - Benign neoplasm of peripheral nerves and autonomic nervous system of pelvis Category: Medical (2) Post-laminectomy syndrome: Code(s): M96.1 - Postlaminectomy syndrome, not elsewhere classified Category: Medical (3) Low back pain: Code(s): M54.50 - Low back pain, unspecified Category: Medical (4) Spondylosis of lumbar region without myelopathy or radiculopathy: Code(s): M47.816 - Spondylosis without myelopathy or radiculopathy, lumbar region Category: Medical (5) Lumbar radiculopathy, right: Code(s): M54.16 - Radiculopathy, lumbar region Category: Medical (6) Spondylosis of lumbar spine: Code(s): M47.816 - Spondylosis without myelopathy or radiculopathy, lumbar region Category: Medical (7) S/P lumbar laminectomy: Code(s): Z98.890 - Other specified postprocedural states Category: Surgical (8) Bilateral hip joint arthritis: Code(s): M16.0 - Bilateral primary osteoarthritis of hip Category: Medical (9) Sacroiliac joint dysfunction of right side: Code(s): M53.3 - Sacrococcygeal disorders, not elsewhere classified Category: Medical (10) Schwannoma of spinal cord: Code(s): D33.4 - Benign neoplasm of spinal cord Category: Medical (11) Sacroiliitis: Code(s): M46.1 - Sacroiliitis, not elsewhere classified Category: Medical (12) Sacroiliac joint dysfunction of right side: Code(s): M53.3 - Sacrococcygeal disorders, not elsewhere classified Category: Medical Plan Possibility exists that the patient is having 2. Or more concurrently existing pathologist. For incontinence with bowel and bladder maybe related to growth of new schwannoma or regrowth of the schwannoma in the pelvis. She does have new tumor it they L5-S1 interval. Her pain in the projection of the sacroiliac joint on the right maybe completely different issue. I tried to do sacroiliac joint injections. She does not want to go for this procedure. However if she wants to go for the pain pump I need to perform sacroiliac joint injection because the pain pump action would not cover arthritic pain. Patient Instructions: I here by testify that I spent 38 minutes in conversation with this patient today. I also spent some time organizing her note and planning her care. Coding Level of Care Code Est Pt Level 4 (00055) Diagnoses Schwannoma of nerve of pelvis D36.16 Post-laminectomy syndrome M96.1 Low back pain M54.50 Spondylosis of lumbar region without myelopathy or radiculopathy M47.816 Lumbar radiculopathy, right M54.16 Spondylosis of lumbar spine M47.816 S/P lumbar laminectomy Z98.890 Bilateral hip joint arthritis M16.0 Sacroiliac joint dysfunction of right side M53.3 Schwannoma of spinal cord D33.4 Sacroiliitis M46.1
[2023-07-21 11:31] VITALS: BP 114/78; PULSE 81; RESP 16; O2SAT 98; BMI 30.7
== END 2023-07-21 12:03 | disposition home or self-care (01) ==
PROVIDERS: PCP Pediatrics; Visit Provider Anesthesiology
DX: D36.16 Benign neoplasm of peripheral nerves and autonomic nervous system of pelvis (principal); M96.1 Postlaminectomy syndrome, not elsewhere classified; M54.50 Low back pain, unspecified; M47.816 Spondylosis without myelopathy or radiculopathy, lumbar region; M54.16 Radiculopathy, lumbar region; Z98.890 Other specified postprocedural states; M16.0 Bilateral primary osteoarthritis of hip; M53.3 Sacrococcygeal disorders, not elsewhere classified; D33.4 Benign neoplasm of spinal cord; M46.1 Sacroiliitis, not elsewhere classified
CPT/HCPCS: 99214

== ENCOUNTER → 2023-07-21 11:18 | Outpatient (BNVA) | payer OTHER, SELFPAY | PROVIDERS: PCP Pediatrics; Visit Provider Anesthesiology | DX: D36.16 Benign neoplasm of peripheral nerves and autonomic nervous system of pelvis (principal); D33.4 Benign neoplasm of spinal cord; M96.1 Postlaminectomy syndrome, not elsewhere classified; M54.50 Low back pain, unspecified; M47.816 Spondylosis without myelopathy or radiculopathy, lumbar region; M54.16 Radiculopathy, lumbar region; M16.0 Bilateral primary osteoarthritis of hip; M53.3 Sacrococcygeal disorders, not elsewhere classified; M46.1 Sacroiliitis, not elsewhere classified; Z98.890 Other specified postprocedural states | CPT/HCPCS: 99212 ==

== ENCOUNTER 2023-07-30 15:01 | Outpatient (AMB) | payer OTHER, SELFPAY ==
--- NOTE | 2023-07-30 15:02 | A.SPINEOV_ITS ---
Intake Visit Reasons: To review Lumbar MRI Intake Note: Ms. 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 In summary, this patient was operated in November 2020 by to remove a schwannoma arising from the right S1 nerve root. The patient states that initially she was doing well but then developed pain radiating down her right leg. Currently she is also having severe pain in the right pelvic area. We have seen the patient several times for this problems and demonstrated to her that the schwannoma is still present. In fact, today I sat down with the patient and compared radiology reports from before surgery and after surgery and showed that the reports state that there was no reduction in tumor size postoperatively. The patient was in contact with the previous surgeon were advised her to get a pain pump or lumbar fusion and local radiation to the remaining tumor. I do not think a lumbar fusion is indicated and I am doubting that local radiation will address her pain symptoms. Normally reserve radiation therapy for progressive tumors which can not be demonstrated. However, maybe surgery would be beneficial to come down her progressive symptoms. I advised the patient to go to visit Dr.Ziv Haywood neurosurgeon at [facility], who specializes in peripheral tumor surgery and may be able to answer the question if radiation is indicated. She will contact me if she can not get into the [facility] and then I will try to get her to a radiation oncologist at [facility]. I spent more than 60 minutes in his consult in trying to explain her current situation. Oh Vale MD, PhD Spine Fellowship Trained Neurosurgeon Director, [facility] Coding Level of Care Code Tele Est Pt Level 5 (85604) Diagnoses Schwannoma of spinal cord D33.4
== END 2023-08-02 08:49 | disposition home or self-care (01) ==
PROVIDERS: PCP Pediatrics; Visit Provider Neurological Surgery
DX: D33.4 Benign neoplasm of spinal cord (principal)
CPT/HCPCS: 99215

== ENCOUNTER → 2023-07-30 15:01 | Outpatient (BNVA) | payer OTHER, SELFPAY | PROVIDERS: PCP Pediatrics; Visit Provider Neurological Surgery ==

== ENCOUNTER 2023-10-03 10:36 | Emergency (ER) | payer OTHER, SELFPAY ==
[2023-10-03 10:43] VITALS: BP 109/70; PULSE 79; RESP 16; TEMP 36.3; O2SAT 98; BMI 30.7
--- NOTE | 2023-10-03 11:16 | ED.GENADULT ---
HPI - General Adult General Chief complaint: Back Pain/Injury Stated complaint: back pain Time Seen by Provider: 10/03/23 11:09 Source: patient Mode of arrival: ambulatory Limitations: no limitations History of Present Illness ED Provider: jeevan HPI narrative: Patient is a 43-year-old female with history of multiple spinal surgeries, Schwannoma of spinal cord for which she had a lumbar CT last week and is following with therapeutic sales specialist in [place], has follow up appointment with them Wednesday, presenting to the ED today with complaint of intermittent sharp pain radiating to bilateral legs for the past 2 days. Also complains of lower back spasming. Denies saddle anesthesia or bowel/bladder incontinence. Has not taken any OTC medications for her symptoms. Has prescriptions for Lyrica and gabapentin but states those are also not helpful. MD complaint: back pain Onset (ago): day(s) Location: back Radiation: extremity Severity: severe Quality: sharp and other (spasming) Pain Consistency: intermittent Relieving factors: none Exacerbating factors: movement Associated symptoms: denies other symptoms Treatments prior to arrival: none Related Data Home Medications ?Medication ?Instructions ?Recorded ?Confirmed dulaglutide 0.75 mg/0.5 mL mg subcut QWEEK 03/23/23 subcutaneous pen injector (Trulicity) valacyclovir 500 mg tablet 500 mg PO DAILY 03/23/23 03/23/23 Previous Rx's ?Medication ?Instructions ?Recorded albuterol sulfate 90 mcg/actuation 2 puff inhalation QID PRN 12/24/21 aerosol inhaler shortness of breath or wheezing #8.5 grams docusate sodium 100 mg capsule 100 mg PO BID #20 caps 04/15/23 (Colace) oxycodone 5 mg tablet 5 mg PO Q4H PRN pain #20 tabs 04/15/23 ondansetron 4 mg disintegrating 4 mg PO Q8H PRN nausea and 05/23/23 tablet vomiting #10 tabs polyethylene glycol 3350 17 17 g PO DAILY #119 grams 05/23/23 gram/dose oral powder (Miralax) methocarbamol 500 mg tablet 500 mg PO TID #6 tabs 10/03/23 Allergies Allergy/AdvReac Type Severity Reaction Status Date / Time No Known Allergies Allergy Verified 10/03/23 10:46 Review of Systems Review of Systems: As per HPI. Yes all other systems are reviewed and are negative Constitutional: Constitutional: Reports as per HPI [facility] Past Medical History Medical History Seasonal allergies Chronic back pain Asthma Depression Anxiety Surgical History Hx laparoscopic cholecystectomy History of bunionectomy Hx of bilateral breast reduction surgery History of bilateral tubal ligation History of lumbar laminectomy S/P placement of nerve stimulator Social History Social History Alcohol intake: never Comment: counts correct Patient Tobacco Use Status: Never used Tobacco Advance Directives: No Advance Directives Information Provided: No Do you have a plan to hurt others: No Plan Current occupational status: employed 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 Blood pressure normal. Heart rate normal. Respiratory rate normal. Temperature normal. Oxygen saturation normal. Const General: cooperative, healthy appearing and no acute distress Orientation/consciousness: oriented to person, oriented to place, oriented to time and patient oriented x3 Limitations: no limitations HENMT Head: Yes normocephalic and Yes atraumatic Ears: external ears normal General nose exam: Normal external nose present Face and sinus: Yes face symmetric Mouth: oropharynx normal and moist mucous membranes Throat: Yes uvula midline Eyes Pupils: Equal, round and reactive pupils present Neck Neck: Yes normal visual inspection and Yes supple Resp Effort & Inspection: normal respiratory effort and able to speak in complete sentences Auscultation: clear to auscultation bilaterally Cardio Rate: regular rate Rhythm: regular rhythm Heart sounds: S1 normal heart sound present and S2 normal heart sound present GI Palpation (GI): Soft to palpation and nontender Auscultation: normoactive bowel sounds General: Yes no CVA tenderness Back/Spine/Pelvis Back: no CVA tenderness Skin General skin exam: elasticity normal and turgor normal Neuro General: oriented to person, oriented to place, oriented to time, patient oriented x3, tone normal, moves all extremities, Normal light touch and pain sensation, no focal motor deficits, CN's II-XI intact bilaterally and deep tendon reflexes 2+ bilaterally Cranial nerves: Yes Equal, round and reactive pupils present Cognition (Neuro): normal cognition Motor exam (neuro): Abnormal motor strength present bilateral lower extremity flexion 4 / 5 Extrem General: Yes full ROM, Yes no pedal edema and Yes no calf tenderness Psych Mental Status: mental status grossly normal Affect: normal affect Thought process: Normal thought process present Medications Administered Discontinued Medications Generic Name Dose Route Start Last Admin Trade Name Thai PRN Reason Stop Dose Admin Ketorolac Tromethamine 30 mg 10/03/23 11:41 10/03/23 12:07 Ketorolac Tromethamine 30 Mg/Ml Vial IM 10/03/23 11:42 30 mg ONCE ONE Administration Ondansetron HCl 4 mg 10/03/23 11:41 10/03/23 12:08 Ondansetron Odt 4 Mg Tab.Rapdis TRANSLINGU 10/03/23 11:42 4 mg ONCE ONE Administration Prednisone 40 mg 10/03/23 11:42 10/03/23 12:08 Prednisone 20 Mg Tablet PO 10/03/23 11:43 40 mg ONCE ONE Administration Medical Decision Making Medical Decision Making MDM Narrative: Patient is a 43-year-old female with history of multiple spinal surgeries, Schwannoma of spinal cord for which she had a lumbar CT last week and is following with therapeutic sales specialist in [place], has follow up appointment with them Wednesday, presenting to the ED today with complaint of intermittent sharp pain radiating to bilateral legs for the past 2 days. On exam patient is awake, A+Ox3, VS WNL, afebrile, normal neurological exam without focal deficits, physical exam findings as above. Given reported symptoms and physical exam findings, initial differential includes lumbar strain, lumbar radiculopathy, degenerative disc disease, disc herniation, spinal stenosis, spondylosis. Less likely vertebral fracture. Do not suspect malignancy/mass, SEA, cauda equina/cord compression. Do not feel imaging is indicated at this time as patient has had extensive imaging including CT and MRI and denies recent injury. She reports good relief in the past with IM toradol. Patient medicated with Toradol in the ED and reports good relief of pain, feels ready for discharge. Will send prescription for robaxin for spasms. Advised patient to keep follow up appointment with spinal specialists in [place] on Wednesday. Return precautions discussed at bedside. Patient verbalized understanding of and agreement with plan. Differential Diagnosis Differential Diagnoses: The differential diagnosis associated with the presentation includes As per MDM External Record Review External record reviewed: Inpatient record, Office record and Outpatient record Prescription Management I considered prescription management with: Pain Medication Discharge Plan Discharge Clinical Impression: Chronic lumbar radiculopathy Patient Disposition: Home, Self-Care Instructions: Lumbar Radiculopathy (ED) Additional Instructions: You were evaluated in the emergency department today for back pain. Your symptoms improved with medication given in the ED. You are being prescribed a muscle relaxer which you can use as needed for spasms. Keep your follow up appointment with the spinal specialist this week. Return to the emergency department if you experience worsening back pain, difficulty walking, fevers, numbness, tingling, incontinence, groin numbness or tingling, or any other concerning symptoms. Prescriptions: New methocarbamol 500 mg tablet 500 mg PO TID Qty: 6 0RF No Action albuterol sulfate 90 mcg/actuation HFA aerosol inhaler 2 puff inhalation QID PRN (Reason: shortness of breath or wheezing) Qty: 8.5 0RF valacyclovir 500 mg tablet 500 mg PO DAILY Trulicity 0.75 mg/0.5 mL pen injector subcut QWEEK docusate sodium [Colace] 100 mg capsule 100 mg PO BID Qty: 20 0RF oxycodone 5 mg tablet 5 mg PO Q4H PRN (Reason: pain) Qty: 20 0RF Rx Instructions: Partial Fill upon patient request. ondansetron 4 mg tablet,disintegrating 4 mg PO Q8H PRN (Reason: nausea and vomiting) Qty: 10 0RF polyethylene glycol 3350 [Miralax] 17 gram/dose powder 17 g PO DAILY Qty: 119 0RF Print Language: Romanian
[2023-10-03] MEDS: Ketorolac Tromethamine 30 MG/ML VIAL IM (12:07)
[2023-10-03] MEDS: predniSONE 20 MG TABLET 40 MG PO (12:08)
[2023-10-03] MEDS: Ondansetron ODT 4 MG TAB.RAPDIS TRANSLINGU (12:08)
[2023-10-03 13:11] VITALS: BP 108/61; PULSE 72; RESP 18; TEMP 36.7; O2SAT 99
== END 2023-10-03 13:11 | disposition home or self-care (01) ==
PROVIDERS: Emergency Provider Emergency Medicine; PCP Pediatrics
DX: M54.16 Radiculopathy, lumbar region (principal); Z79.899 Other long term (current) drug therapy
CPT/HCPCS: 96372; 99283; 99284; J1885

== ENCOUNTER 2024-05-18 10:56 | Outpatient (RCR) | payer OTHER, SELFPAY | END 2024-06-28 10:16 | disposition home or self-care (01) | LOC: HO.PT 10:56 | PROVIDERS: PCP Pediatrics; Visit Provider Neurological Surgery | DX: M48.061 Spinal stenosis, lumbar region without neurogenic claudication (principal) | CPT/HCPCS: 97110; 97140; 97161; 97535 ==

== ENCOUNTER 2024-12-02 12:20 | Emergency (ER) | payer OTHER, SELFPAY ==
[2024-12-02 12:33] VITALS: BP 125/62; PULSE 80; RESP 18; TEMP 36.4; O2SAT 98; BMI 25.4
--- NOTE | 2024-12-02 12:33 | ED.BACK ---
HPI - Back Pain/Injury General Chief Complaint: Back Pain/Injury Stated Complaint: lower back pain Time Seen by Provider: 12/02/24 12:43 Source: patient and RN notes reviewed Mode of arrival: ambulatory Limitations: no limitations History of Present Illness ED Provider: Tarah Padilla PA-C HPI Narrative: This is a [id number]-female, multiple spinal surgeries, Schwannoma of spinal cord for which she had a lumbar CT last week and is following with hris specialist in [place], who presents to the ER with concerns of right sided back pain. 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 Neurosurgeon is in [place], [place]. Took meloxicam yesterday and heating pad. She has not followed up with her back specialist as she needs a prior authorization from her primary care to do so. She denies any fevers, chills, chest pain, shortness of breath, abdominal pain, nausea, vomiting or diarrhea. Denies any urinary or bowel retention or incontinence. No saddle anesthesia. No urinary symptoms. No other complaints or concerns at this time. MD elicited complaint: back pain Exacerbating factors: none Relieving factors: none Associated symptoms: denies other symptoms Related Data Home Medications ?Medication ?Instructions ?Recorded ?Confirmed dulaglutide 0.75 mg/0.5 mL mg subcut QWEEK 03/23/23 subcutaneous pen injector (Trulicity) valacyclovir 500 mg tablet 500 mg PO DAILY 03/23/23 03/23/23 Previous Rx's ?Medication ?Instructions ?Recorded albuterol sulfate 90 mcg/actuation 2 puff inhalation QID PRN 12/24/21 aerosol inhaler shortness of breath or wheezing #8.5 grams docusate sodium 100 mg capsule 100 mg PO BID #20 caps 04/15/23 (Colace) oxycodone 5 mg tablet 5 mg PO Q4H PRN pain #20 tabs 04/15/23 ondansetron 4 mg disintegrating 4 mg PO Q8H PRN nausea and 05/23/23 tablet vomiting #10 tabs polyethylene glycol 3350 17 17 g PO DAILY #119 grams 05/23/23 gram/dose oral powder (Miralax) methocarbamol 500 mg tablet 500 mg PO TID #6 tabs 10/03/23 acetaminophen 500 mg tablet 1,000 mg (2 x 500 mg) PO Q8H PRN 12/02/24 (Tylenol Extra Strength) pain #30 tabs ibuprofen 600 mg tablet 600 mg PO Q6H PRN fever #30 tabs 12/02/24 prednisone 20 mg tablet 40 mg (2 x 20 mg) PO DAILY 5 days 12/02/24 #10 tabs Allergies Allergy/AdvReac Type Severity Reaction Status Date / Time No Known Allergies Allergy Verified 12/02/24 12:37 Review of Systems Review of Systems: Constitutional : No Fever, No Chills ENT/Mouth : No sore throat, No Rhinorrhea Eyes: No Eye Pain, No Swelling, No Redness Cardiovascular : No Chest Pain, No SOB Respiratory : No Cough, No Sputum Gastrointestinal : No Nausea, No Vomiting, No Diarrhea, No abdominal Pain Genitourinary : No Dysuria, No Hematuria Musculoskeletal : No joint pain, No Myalgias, No Joint Swelling Skin : No Skin Lesions Neuro : No Weakness, No Numbness, No Headache All other systems reviewed and are negative Yes all other systems are reviewed and are negative Constitutional: Constitutional: Reports as per HPI [facility] Past Medical History Medical History Seasonal allergies Chronic back pain Asthma Depression Anxiety Surgical History Hx laparoscopic cholecystectomy History of bunionectomy Hx of bilateral breast reduction surgery History of bilateral tubal ligation History of lumbar laminectomy S/P placement of nerve stimulator Social History Social History Alcohol intake: never Comment: counts correct Patient Tobacco Use Status: Never used Tobacco Advance Directives: No Advance Directives Information Provided: Yes Do you have a plan to hurt others: No Plan Current occupational status: employed 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 Vital Signs: Vital Signs: Last Vital Signs Temp 97.5 F 12/02/24 13:01 Pulse 80 12/02/24 13:01 Resp 18 12/02/24 13:01 BP 125/62 12/02/24 13:01 Pulse Ox 98 12/02/24 13:01 O2 Del Method Room Air 12/02/24 13:01 BMI result Body Mass Index 25.4 Const: General: cooperative, comfortable and no acute distress Orientation/consciousness: patient oriented x3 Limitations: no limitations HEENT: Head: Yes normal to inspection, Yes normocephalic and Yes atraumatic Ears: hearing grossly normal bilaterally General nose exam: Normal external nose present Face and sinus: Yes normal facial exam Mouth: Normal oral and palatal mucosa present, oropharynx normal and moist mucous membranes Throat: Yes posterior oropharynx normal Eyes: General: appearance normal, both eyes and all related structures Eyelids: Yes eyelids normal Conjunctivae: conjunctivae normal Sclerae: sclerae normal Pupils: Equal, round and reactive pupils present EOM: EOMs intact bilaterally Neck: Neck: Yes normal visual inspection, Yes full ROM and Yes no lymphadenopathy Lymphatic: no lymphadenopathy noted Chest: Chest palpation & inspection: normal inspection of the chest Resp: Effort & Inspection: normal respiratory effort and able to speak in complete sentences Auscultation: clear to auscultation bilaterally, no crackles, no rales, no rhonchi and no wheezes Cardio: Rate: regular rate Rhythm: regular rhythm Heart sounds: S1 normal heart sound present and S2 normal heart sound present GI: Inspection: Yes normal to inspection Back/Spine/Pelvis: Other: Tenderness palpation along the right SI joint, no obvious bony deformity or swelling. She does have a well-healed surgical incision noted along the midline lumbar spine. Strength 5/5. Distal sensation circulation intact. Skin: General skin exam: no rashes or lesions noted Trauma: no lacerations or abrasions Wounds: no wounds Neuro: General: patient oriented x3 and moves all extremities Cranial nerves: Yes Equal, round and reactive pupils present Extrem: General: Yes normal to inspection Right upper extremity: normal to inspection Left upper extremity: normal to inspection Right lower extremity: normal to inspection Left lower extremity: normal to inspection Medications Administered Discontinued Medications Generic Name Dose Route Start Last Admin Trade Name Freq PRN Reason Stop Dose Admin Ketorolac Tromethamine 30 mg 12/02/24 12:43 12/02/24 12:47 Ketorolac Tromethamine 30 Mg/Ml Vial IM 12/02/24 12:44 30 mg ONCE ONE Administration Medical Decision Making Medical Decision Making [facility] Narrative: This is a [id number]-female, multiple spinal surgeries, Schwannoma of spinal cord for which she had a lumbar CT last week and is following with hris specialist [place], who presents to the ER with concerns of right sided back pain. 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 Neurosurgeon is in [place], [place]. On arrival, vital signs within normal limits. This patient presents with back pain most consistent with lumbar radiculopathy. Differential diagnoses includes lumbago versus musculoskeletal spasm / strain versus sciatica.No back pain red flags on history or physical. Presentation not consistent with malignancy (lack of history of malignancy, lack of B symptoms), fracture (no trauma, no bony tenderness to palpation), cauda equina sydrome (no bowel or urinary incontinence/retention, no saddle anesthesia, no distal weakness), renal colic, pyelonephritis (afebrile, no CVAT, no urinary symptoms). Discharged on steroids, patient declines wanting any muscle relaxants. Advised with patient that she should get repeat imaging through her hris specialist, she understands and agrees with plan. Given strict return precautions, she understands and agrees with plan. Patient stable for discharge. Differential Diagnosis Differential Diagnoses: The differential diagnosis associated with the presentation includes See above Discharge Plan Discharge Clinical Impression: Lumbar radiculopathy, right Patient Disposition: Home, Self-Care Instructions: Lumbar Radiculopathy (ED) Additional Instructions: You were seen in the ER due to back pain. You likely have inflammation in your back thats causing nerve pain. We had given you an injection of Toradol, this is an anti-inflammatory. Do not take ibuprofen (or any NSAIDs) until 8PM tonight. Alternate between ibuprofen and tylenol as needed for pain. Ibuprofen 600mg every 6 hours, two hours later, please take tylenol 100mg as needed for pain. Prednisone is a steroidal medication, please take as prescribed. If any new or worsening symptoms occur including but not limited to worsening pain, chest pain, shortness of breath, loss of bladder/bowel control, numbness/tingling into your groin, please seek emergent care. Prescriptions: New ibuprofen 600 mg tablet 600 mg PO Q6H PRN (Reason: fever) Qty: 30 0RF prednisone 20 mg tablet 40 mg PO DAILY 5 Days Qty: 10 0RF acetaminophen [Tylenol Extra Strength] 500 mg tablet 1,000 mg PO Q8H PRN (Reason: pain) Qty: 30 0RF No Action albuterol sulfate 90 mcg/actuation HFA aerosol inhaler 2 puff inhalation QID PRN (Reason: shortness of breath or wheezing) Qty: 8.5 0RF valacyclovir 500 mg tablet 500 mg PO DAILY Trulicity 0.75 mg/0.5 mL pen injector subcut QWEEK docusate sodium [Colace] 100 mg capsule 100 mg PO BID Qty: 20 0RF oxycodone 5 mg tablet 5 mg PO Q4H PRN (Reason: pain) Qty: 20 0RF Rx Instructions: Partial Fill upon patient request. ondansetron 4 mg tablet,disintegrating 4 mg PO Q8H PRN (Reason: nausea and vomiting) Qty: 10 0RF polyethylene glycol 3350 [Miralax] 17 gram/dose powder 17 g PO DAILY Qty: 119 0RF methocarbamol 500 mg tablet 500 mg PO TID Qty: 6 0RF Stand Alone Forms: Work/School Release Interventions: ED Discharge Assessment Last Done: 12/02/24 13:01 Discharge Date/Time: 12/02/24 13:02 Print Language: Ethiopian
[2024-12-02 13:01] VITALS: BP 125/62; PULSE 80; RESP 18; TEMP 36.4; O2SAT 98
--- OUTSIDE RECORDS SUMMARY | 2024-12-02 13:02 | XMS_ITS | Clinical Summary ---
Author Organization [facility] Address [address] [place] [address] Phone Care Team Providers Care Mailing Specialist Name Role Phone Brian José Primary Care Provider [phone] Allergies No known active allergies Medications valACYclovir (VALTREX) 500 mg tablet Take 1 tablet (500 mg total) by mouth 2 (two) times a day. Active cyclobenzaprine (FLEXERIL) 10 mg tablet Take 1 tablet (10 mg total) by mouth 2 (two) times a day if needed for muscle spasms for up to 10 days. 20 tablet 10/23/2024 Active Active Problems Problem Noted Date Diagnosed Date Carpal tunnel syndrome 04/24/2024 Fibromyalgia 04/24/2024 Splenomegaly 04/24/2024 Urinary frequency 04/24/2024 Anxiety and depression 04/24/2024 Arthritis 04/24/2024 Asthma 04/24/2024 Encounters Date Type Department Care Team Description 10/22/2024 10:51 PM EDT - 10/23/2024 2:49 AM EDT Emergency [facility] Emergency [address] [place] [address] Ban Lee MD Bilateral flank pain (Primary Dx); Pleuritic pain; Elevated d-dimer Discharge Disposition: Home or Self Care from Last 3 Months Surgical History Surgery Date Site/Laterality Comments CHOLECYSTECTOMY TUBAL LIGATION SPINAL CORD STIMULATOR IMPLANT removed BLADDER has bladder mesh Medical History Medical History Date Comments Anxiety Asthma Chronic back pain Family History Medical History Relation Name Comments Cervical cancer Mother Relation Name Status Comments Mother Social History Tobacco Use Types Packs/Day Years Used Date Smoking Tobacco: Never Smokeless Tobacco: Never Tobacco Cessation:Counseling Given: Not Answered Alcohol Use Standard Drinks/Week Comments Not Currently 0 (1 standard drink = 0.6 oz pur e alcohol) Comments Unknown Sex and Gender Information Value Date Recorded Sex Assigned at Not on file Legal Sex Female 4:18 AM EST Gender Identity Not on file Sexual Orientation Not on file Occupation Industry Job Start Date Job End Date Does not currently work Not on file Not on file Not on file Obstetrics History Para Term AB IAB SAB Ectopic Multiple Livin g Live Births 7 6 Date Outcome GA Total Labor Labor/2nd/3rd Weight Sex Type Anes PTL Mirtha A1 A5 Name Clin Para Para Para Para Para Para Last Filed Vital Signs Vital Sign Reading Time Taken Comments Blood Pressure 101/72 10/23/2024 1:38 AM EDT Pulse 59 10/23/2024 1:38 AM EDT Temperature 36.3 C (97.3 F) 10/23/2024 1:38 AM EDT Respiratory Rate 18 10/23/2024 1:38 AM EDT Oxygen Saturation 98% 10/23/2024 1:38 AM EDT Inhaled Oxygen Concentration - - Weight 72.1 kg (159 lb) 10/22/2024 10:24 PM EDT Height 167.6 cm (5' 6 ) 10/22/2024 10:24 PM EDT Body Mass Index 25.66 10/22/2024 10:24 PM EDT Plan of Treatment Health Maintenance Due Date Last Done Comments Breast Cancer Screening 1978 Cervical Cancer Screening: Pap Smear 1999 COVID-19 Vaccine (3 - Pfizer risk series) 12/04/2020 11/06/2020, 10/11/2020 Colorectal Cancer Screening: Colonoscopy 02/15/2022 HIV Screening 02/15/2022 Hepatitis C Screening 02/15/2022 Social Influencers of Health Screening 02/15/2022 Depression Screening 03/15/2024 Influenza Vaccine (#1) 2024 , 01/20/2023, 01/20/2022, Additional history exists DTaP,Tdap,and Td Vaccines (3 - Td or Tdap) 10/29/2027 10/28/2017, 08/14/2010 Pneumococcal Vaccine: Pediatrics (0 to 5 Years) and At-Risk Patients (6 to 49 Years) Completed 01/20/2022 Hepatitis B Vaccines Completed 05/24/2023, 09/23/2021, 03/11/2017 HIB Vaccines Aged Out No longer eligi ble based on patient's age to complete this topic HPV Vaccines Aged Out No longer eligi ble based on patient's age to complete this topic Hepatitis A Vaccines Aged Out No long er eligible based on patient's age to complete this topic IPV Vaccines Aged Out No longer eligi ble based on patient's age to complete this topic MMR Vaccines Aged Out No longer eligi ble based on patient's age to complete this topic Meningococcal ACWY Vaccine Aged Out N o longer eligible based on patient's age to complete this topic Meningococcal B Vaccine Aged Out No l onger eligible based on patient's age to complete this topic RSV Immunization Patients Under 20 months Aged Out No longer eligible based on patient's age to complete this topic Varicella Vaccines Aged Out No longer eligible based on patient's age to complete this topic Procedures Procedure Name Priority Date/Time Associated Diagnosis Comments TROPONIN I HIGH SENSITIVITY Timed 10/23/2024 12:[address] ANGIO CHEST WO AND/OR W CONTRAST STAT 10/23/2024 12:19 AM EDT Pleuritic pain Elevated d-dimer ECG ANNOTATED 10/23/2024 ECG 12-LEAD STAT 10/22/2024 11:12 PM EDT TROPONIN I HIGH SENSITIVITY Timed 10/22/2024 11:11 PM EDT D-DIMER STAT 10/22/2024 11:11 PM EDT CBC WITH AUTO DIFFERENTIAL STAT 10/22/2024 11:11 PM EDT BASIC METABOLIC PANEL STAT 10/22/2024 11:11 PM EDT CBC AND DIFFERENTIAL STAT 10/22/2024 11:11 PM EDT POC , URINE DIAGNOSTIC STAT 10/22/2024 11:03 PM EDT PINTO URINE CULTURE TUBE STAT 10/22/2024 11:03 PM EDT URINALYSIS WITH REFLEX MICROSCOPIC AND CULTURE STAT 10/22/2024 11:03 PM EDT URINALYSIS WITH REFLEX MICROSCOPIC AND CULTURE STAT 10/22/2024 11:03 PM EDT from Last 3 Months Results * Troponin I high sensitivity (NOW and then in 1 hour) (10/23/2024 12:42 AM EDT) Only the most recent of2 resultswithin the time period is included. High Sensitivity Troponin I 5 <=54 ng/L LAB CHEMISTRY METHOD 10/23/2024 1:53 AM EDT [facility] Blood Venous blood specimen / Unknown Venipuncture / Unknown 10/23/2024 12:42 AM EDT 10/23/2024 1:25 AM EDT Narrative [facility] - 10/23/2024 1:53 AM EDT High levels of biotin in samples may falsely decrease hsTroponin values. Use caution when interpreting hsTroponin results in patients taking biotin who exhibit renal impairment (eGFR <60) or in patients taking more than 20 mg/day of biotin. us Ban Lee MD LAB BLOOD ORDERABLES Final Res ult [facility] [address] [place] [address], * CT Angio Chest wo and/or w Contrast (10/23/2024 12:19 AM EDT) Anatomical Region Laterality Modality Body Computed Tomogra phy 10/23/2024 12:4 3 AM EDT Impressions 10/23/2024 12:43 AM EDT 1. No acute intrathoracic findings. No evidence of pulmonary embolism. This document has been electronically signed by: Joe Emmanuel MD on 10/23/2024 00:43:36 Narrative 10/23/2024 12:43 AM EDT INDICATION: PE suspected, low/intermediate prob, positive D-dimer CT angiography chest with contrast. 3D Postprocessing. Comparison: None provided Findings: The heart size is normal. RV/LV ratio is normal. The thoracic aorta is normal caliber. No acute pulmonary embolus. Left thyroid nodule. No consolidation or effusion. Prior cholecystectomy. The bones are intact. Procedure Note Joe Emmanuel - 10/23/2024 INDICATION: PE suspected, low/intermediate prob, positive D-dimer CT angiography chest with contrast. 3D Postprocessing. Comparison: None provided Findings: The heart size is normal. RV/LV ratio is normal. The thoracic aorta is normal caliber. No acute pulmonary embolus. Left thyroid nodule. No consolidation or effusion. Prior cholecystectomy. The bones are intact. IMPRESSION: 1. No acute intrathoracic findings. No evidence of pulmonary embolism. This document has been electronically signed by: Joe Emmanuel MD on 10/23/2024 00:43:36 Ban Lee MD IMG CT PROCEDURES Final Result * ECG-Annotated (10/23/2024) Provider Onandria MARTIN ECG ORDERABLES Final Result * ECG 12 lead (10/22/2024 11:12 PM EDT) Ventricular Rate ECG 69 BPM GEMUSE Atrial Rate 69 BPM GEMUSE P-R Interval 258 ms GEMUSE QRS Duration 82 ms GEMUSE Q-T Interval 386 ms GEMUSE QTc 413 ms GEMUSE P Wave Lynn 81 degrees GEMUSE R Lynn 75 degrees GEMUSE T Lynn 72 degrees GEMUSE ECG Interpretation Sinus rhythm with 1st degree A-V block When compared with ECG of 16-NOV-2022 20:27, AL interval has increased Confirmed by KARI CARDONA ([id number]) on 10/23/2024 1:00:52 AM GEMUSE 10/22/2024 11:1 2 PM EDT 10/23/2024 1:00 AM EDT Ban Lee MD ECG ORDERABLES Final Result GEMUSE * (ABNORMAL) CBC auto differential (10/22/2024 11:11 PM EDT) WBC 4.7(L) 4.8 - 10.8 K/mcL LAB HEMETOLOGY METHOD 10/22[facility]2024 11:[facility] RBC 3.40(L) 3.80 - 4.80 M/mcL LAB HEMETOLOGY METHOD 10/22/2024 11:41 PM [facility] Hemoglobin 10.9(L) 11.5 - 16.0 g/dL LAB HEMETOLOGY METHOD 10/22/2024 11:41 PM [facility] Hematocrit 32.4(L) 35.0 - 47.0 % LAB HEMETOLOGY METHOD 10/22/2024 11:41 PM [facility] MCV 95.3 79.0 - 98.0 FL LAB HEMETOLOGY METHOD 10/22/2024 11:41 PM [facility] MCH 32.1(H) 27.0 - 32.0 pcg LAB HEMETOLOGY METHOD 10/22/2024 11:41 PM [facility] MCHC 33.6 32.0 - 37.0 g/dL LAB HEMETOLOGY METHOD 10/22/2024 11:41 PM [facility] RDW 12.4 11.0 - 15.0 % LAB HEMETOLOGY METHOD 10/22/2024 11:41 PM [facility] Platelets 239 130 - 400 K/mcL LAB HEMETOLOGY METHOD 10/22/2024 11:41 PM [facility] MPV 10.2 7.0 - 11.0 FL LAB HEMETOLOGY METHOD 10/22/2024 11:41 PM [facility] NRBC 0.0 <1.0 % LAB HEMETOLOGY METHOD 10/22/2024 11:41 PM [facility] NRBC Absolute 0.00 <0.10 K/mcL LAB HEMETOLOGY METHOD 10/22/2024 11:41 PM EDT [facility] Neutrophils Relative 68.4 % LAB HEMETOLOGY METHOD 10/22/2024 11:41 PM [facility] Lymphocytes Relative 21.5 % LAB HEMETOLOGY METHOD 10/22/2024 11:41 PM [facility] Monocytes Relative 8.2 % LAB HEMETOLOGY METHOD 10/22/2024 11:41 PM [facility] Eosinophils Relative 1.1 % LAB HEMETOLOGY METHOD 10/22/2024 11:41 PM [facility] Basophils Relative 0.6 % LAB HEMETOLOGY METHOD 10/22/2024 11:41 PM [facility] Immature Granulocytes Relative 0.2 % LAB HEMETOLOGY METHOD 10/22/2024 11:41 PM [facility] Neutrophils Absolute 3.24 1.50 - 7.00 K/mcL LAB HEMETOLOGY METHOD 10/22/2024 11:41 PM [facility] Lymphocytes Absolute 1.02 1.00 - 5.00 K/mcL LAB HEMETOLOGY METHOD 10/22/2024 11:41 PM [facility] Monocytes Absolute 0.39 0.20 - 1.00 K/mcL LAB HEMETOLOGY METHOD 10/22/2024 11:41 PM [facility] Eosinophils Absolute 0.05 0.00 - 0.50 K/mcL LAB HEMETOLOGY METHOD 10/22/2024 11:41 PM [facility] Basophils Absolute 0.03 0.00 - 0.20 K/mcL LAB HEMETOLOGY METHOD 10/22/2024 11:41 PM [facility] Immature Granulocytes Absolute 0.01 0.00 - 0.03 K/mcL LAB HEMETOLOGY METHOD 10/22/2024 11:41 PM EDT [facility] Blood Venous blood specimen / Unknown Venipuncture / Unknown 10/22/2024 11:11 PM EDT 10/22/2024 11:37 PM EDT Ritu Green MD LAB BLOOD ORDERABLES Final Resul t Performing Organization Address [facility]/ZIP Co de Phone Number [facility] [address] [place] [address], [place] [phone] * (ABNORMAL) D-dimer, quantitative (10/22/2024 11:11 PM EDT) D-Dimer, Quant (D-DU) 339(H) <=230 ng/mL DDU LAB COAGULATION METHOD 10/22/2024 11:49 PM EDT [facility] Blood Venous blood specimen / Unknown Venipuncture / Unknown 10/22/2024 11:11 PM EDT 10/22/2024 11:37 PM EDT Narrative [facility] - 10/22/2024 11:49 PM EDT D-Dimer <230 ng/mL (D-Dimer units) is the threshold for exclusion of DVT/PE. D-Dimer may be elevated in: Critically ill, severely infected, trauma patients, DIC, acute CVA, acute [place], unstable angina, AF, old age, , and smoking. D-Dimer may be decreased with: Initiation of heparin therapy and oral anticoagulants. Ban Lee MD LAB BLOOD ORDERABLES Final Res ult Performing Organization Address City/[facility]/ZIP Co de Phone Number [facility] [address] [place] [address], [place] [phone] * (ABNORMAL) Basic metabolic panel (10/22/2024 11:11 PM EDT) Sodium 139 133 - 145 mmol/L LAB CHEMISTRY METHOD 10/23/2024 12:00 AM [facility] Potassium 4.2 3.5 - 5.5 mmol/L LAB CHEMISTRY METHOD 10/23/2024 12:00 AM [facility] Chloride 108 96 - 110 mmol/L LAB CHEMISTRY METHOD 10/23/2024 12:00 AM [facility] CO2 29 21 - 32 mmol/L LAB CHEMISTRY METHOD 10/23/2024 12:00 AM [facility] Anion Gap 2(L) 3 - 11 LAB CHEMISTRY METHOD 10/23/2024 12:00 AM [facility] Glucose 75 70 - 100 mg/dL LAB CHEMISTRY METHOD 10/23/2024 12:00 AM [facility] BUN 9 5 - 25 mg/dL LAB CHEMISTRY METHOD 10/23/2024 12:00 AM [facility] Creatinine 0.83 0.50 - 1.10 mg/dL LAB CHEMISTRY METHOD 10/23/2024 12:00 AM [facility] eGFR 88 >=60 mL/min/1. 73m2 LAB CHEMISTRY METHOD 10/23/2024 12:00 AM [facility] Comment:Calculation based on the Chronic Kidney Disease Epidemiology Collaboration (CKD-EPI) equation refit without adjustment for race. BUN/Creatinine Ratio 10.8 LAB CHEMISTRY METHOD 10/23/2024 12:00 AM [facility] Calcium 8.9 8.5 - 10.5 mg/dL LAB CHEMISTRY METHOD 10/23/2024 12:00 AM [facility] Blood Venous blood specimen / Unknown Venipuncture / Unknown 10/22/2024 11:11 PM EDT 10/22/2024 11:37 PM EDT us Ritu Green MD LAB BLOOD ORDERABLES Final Resul t [facility] [address] [place] [address], [place] [phone] * (ABNORMAL) Urinalysis with reflex microscopic and culture (10/22/2024 11:03 PM EDT) Specific [place] Urine 1.025 1.003 - 1.030 LAB URINALYSIS - AUTOMATED METHOD 10/22/2024 11:19 PM [facility] pH, Urine 7.0 5.0 - 8.0 pH LAB URINALYSIS - AUTOMATED METHOD 10/22/2024 11:19 PM [facility] Leukocytes, Urine Negative Negative LAB URINALYSIS - AUTOMATED METHOD 10/22/2024 11:19 PM [facility] Nitrite, Urine Negative Negative LAB URINALYSIS - AUTOMATED METHOD 10/22/2024 11:19 PM [facility] Protein, Urine Trace <=Trace mg/dL LAB URINALYSIS - AUTOMATED METHOD 10/22/2024 11:19 PM [facility] Glucose, Urine Negative Negative mg/dL LAB URINALYSIS - AUTOMATED METHOD 10/22/2024 11:19 PM [facility] Ketones, Urine Trace(A) Negative mg/dL LAB URINALYSIS - AUTOMATED METHOD 10/22/2024 11:19 PM [facility] Urobilinogen, Urine 1.0 0.2 - 1.0 mg/dL LAB URINALYSIS - AUTOMATED METHOD 10/22/2024 11:19 PM [facility] Bilirubin, Urine Negative Negative LAB URINALYSIS - AUTOMATED METHOD 10/22/2024 11:19 PM [facility] Blood, Urine Negative Negative LAB URINALYSIS - AUTOMATED METHOD 10/22/2024 11:19 PM [facility] Urine Urine specimen obtained by clean catch procedure / Unknown Non-blood Collection / Unknown 10/22/2024 11:03 PM EDT 10/22/2024 11:11 PM EDT us Ritu Green MD LAB URINE ORDERABLES Final Resul t [facility] [address] [place] [address], [place] [phone] * [place] urine culture tube (10/22/2024 11:03 PM EDT) Extra Tube Hold for add-ons. 10/23/2024 1:01 AM EDT [facility] Comment:Auto resulted. Urine Urine specimen obtained by clean catch procedure / Unknown Non-blood Collection / Unknown 10/22/2024 11:03 PM EDT 10/22/2024 11:11 PM EDT us Ritu Green MD LAB URINE ORDERABLES Final Resul t Performing Organization Address City/[facility]/ZIP Co de Phone Number [facility] [address] [place] [address], [place] [phone] * POC , urine manually resulted (10/22/2024 11:03 PM EDT) HCG, Ur POC Negative Negative Urine Urine specimen obtained by clean catch procedure / Unknown 10/22/2024 11:03 PM EDT us Ritu Green MD POINT OF CARE TEST ENTER/EDIT OR DERABLES Final Result from Last 3 Months Insurance [facility] MEDICAID ADVANTAGE [address] [place] [address] Care Teams Mailing Specialist Relationship Specialty Start Date End Date Brian José DO [address] [place] [id number] PCP - General Internal Medicine 03/22/24
--- OUTSIDE RECORDS SUMMARY | 2024-12-02 13:02 | XMS_ITS | Clinical Summary ---
Author Organization [facility] Address [address] [place] [phone] Phone Care Team Providers Care Front Office Administrator Name Role Phone Regine Baird MD Primary Care Provider [phone] Social History Tobacco Use Types Packs/Day Years Used Date Smoking Tobacco: Never Assessed Education Answer Date Recorded Are you interested in more education? Not on hans e 07/11/2022 Are you concerned about learning? Not on file 07/11/2022 No 07/11/2022 No 07/11/2022 Digital Access Answer Date Recorded No 08/11/2022 No 08/11/2022 Reliable internet access at home? Not on file 08/11/2022 Device with a working camera? Not on file Comments Unknown Sex and Gender Information Value Date Recorded Sex Assigned at Female 07/19/2020 10:20 AM EDT Legal Sex Female 10:10 AM EDT Gender Identity Female 07/19/2020 10:20 AM EDT Sexual Orientation Straight 07/19/2020 10 :20 AM EDT Plan of Treatment Health Maintenance Due Date Last Done Comments LIPID PANEL 1978 DEPRESSION SCREENING 1990 SMOKING Hx and SMOKELESS TOBACCO SCREENING 1991 HEPATITIS C SCREENING 1996 HIV ONE-TIME SCREENING (18-6 5 YEARS) 1996 PAP SMEAR 1999 MAMMOGRAM 2018 COLOGUARD 2023 COLONOSCOPY 2023 COLORECTAL CANCER SCREENING 2023 FIT TEST 2023 FOBT 2023 SIGMOIDOSCOPY 2023 VIRTUAL COLONOSCOPY 2023 INFLUENZA VACCINE (#1) 2024 01/06/2018 COVID-19 VACCINE (2 6 season) 2024 11/06/2020, 10/11/2020 Adult Td,Tdap Booster 10/29/2027 10/28/2017 HEPATITIS A VACCINES Aged Out No long er eligible based on patient's age to complete this topic HIB VACCINES Aged Out No longer eligi ble based on patient's age to complete this topic MENINGOCOCCAL VACCINES (ACWY) Aged Out No longer eligible based on patient's age to complete this topic MENINGOCOCCAL VACCINES (B) Aged Out N o longer eligible based on patient's age to complete this topic PNEUMOCOCCAL VACCINES (0-49 years) Aged Out No longer eligible b ased on patient's age to complete this topic Medical Devices Not on file Insurance [facility] Member Subscriber Plan / Payer (Ef fective 2020-Present) Name:Samira Werner Relation to Subscriber:Self Name:Samira Werner Payer ID:Not on file Type:Medicaid Address: [place] [id number] [facility] [place] [employer] [facility] [place] [facility] Care Teams Front Office Administrator Relationship Specialty Start Date End Date Regine Baird MD [address] [place] [address] [place] [address] PCP - General Internal Medicine 07/19/20 Additional Source Comments The information contained in this document represents components of the legal health record. It is not the complete legal health record.[facility]
--- OUTSIDE RECORDS SUMMARY | 2024-12-02 13:02 | XMS_ITS ---
Author Name [facility] Organization Unknown Results Test Name/Text Value Interpretation Date Range Source Chloride SerPl-sCnc 106.0 mmol/L Normal 12/20/2023 98 - 1 07 [facility] Anion Gap Bld-sCnc 10.0 Normal 12/20/2023 7 - 17 H[facility] Sodium SerPl-sCnc 140.0 mmol/L Normal 12/20/2023 136 - 14 5 HHCCT Creat SerPl-mCnc 0.5 mg/dL Normal 12/20/2023 0.4 - 1.1 HH CCT Potassium SerPl-sCnc 3.9 mmol/L Normal 12/20/2023 3.4 - 5 .3 H[facility]CT BUN/Creat SerPl 18.0 Ratio Normal 12/20/2023 10 - 25 HH CCT Calcium SerPl-mCnc 9.1 mg/dL Normal 12/20/2023 8.7 - 10.5 H[facility]CT BUN SerPl-mCnc 9.0 mg/dL Normal 12/20/2023 8 - 21 HHCC T Glucose SerPl-mCnc 107.0 mg/dL Above high normal 12/20/2023 65 - 99 HHCCT GFR/BSA.pred SerPlBld HQK-UAD-GhWYgi >90.0 Normal 12/20/2023 59 - HHCCT CO2 SerPl-sCnc 24.0 mmol/L Normal 12/20/2023 22 - 33 HH CCT RDW RBC Auto-Rto 11.9 % Normal 12/20/2023 11.5 - 14.5 HHCCT RBC num Bld Auto 2.83 Mil/uL Below low normal 12/20/2023 4 - 5.4 HHCCT Hgb Bld-mCnc 9.1 g/dL Below low normal 12/20/2023 11.7 - 15 .7 H[facility]CT Platelet num Bld Auto 230.0 Thou/uL Normal 12/20/2023 150 - 450 H[facility]CT MCH RBC Qn Auto 32.2 pg Normal 12/20/2023 26 - [address] WBC num Bld Auto 10.7 Thou/uL Normal 12/20/2023 4 - 11 H[facility]CT Hct VFr Bld Auto 27.1 % Below low normal 12/20/2023 35 - 47 H[facility]CT MCV RBC Auto 96.0 fL Normal 12/20/2023 80 - 100 H[facility]CT MCHC RBC Auto-mCnc 33.6 g/dL Normal 12/20/2023 30 - 36 H[facility]CT PMV Bld Auto 10.2 fL Normal 12/20/2023 7.5 - 12.5 H[facility]CT Phosphate SerPl-mCnc 2.6 mg/dL Below low normal 12/19/2023 2 .7 - 4.5 H[facility]CT Magnesium SerPl-mCnc 1.9 mg/dL Normal 12/19/2023 1.6 - 2. 7 [facility] Glucose SerPl-mCnc 141.0 mg/dL Above high normal 12/19/2023 65 - 99 [facility]CT Anion Gap Bld-sCnc 10.0 Normal 12/19/2023 7 - 17 [facility] BUN/Creat SerPl 12.0 Ratio Normal 12/19/2023 10 - 25 HH CCT Sodium SerPl-sCnc 140.0 mmol/L Normal 12/19/2023 136 - 14 5 H[facility]CT Chloride SerPl-sCnc 105.0 mmol/L Normal 12/19/2023 98 - 1 07 H[facility]CT CO2 SerPl-sCnc 25.0 mmol/L Normal 12/19/2023 22 - 33 HH CCT GFR/BSA.pred SerPlBld JYB-IMQ-PiPWsh >90.0 Normal 12/19/2023 59 - HHCCT Creat SerPl-mCnc 0.5 mg/dL Normal 12/19/2023 0.4 - 1.1 HH CCT Calcium SerPl-mCnc 8.9 mg/dL Normal 12/19/2023 8.7 - 10.5 HHCCT BUN SerPl-mCnc 6.0 mg/dL Below low normal 12/19/2023 8 - 21 HHCCT Potassium SerPl-sCnc 3.8 mmol/L Normal 12/19/2023 3.4 - 5 .3 HHCCT MCH RBC Qn Auto 32.5 pg Normal 12/19/2023 26 - [address] MCHC RBC Auto-mCnc 33.6 g/dL Normal 12/19/2023 30 - 36 HHCCT Hct VFr Bld Auto 26.8 % Below low normal 12/19/2023 35 - 47 HHCCT Hgb Bld-mCnc 9.0 g/dL Below low normal 12/19/2023 11.7 - 15 .7 HHCCT PMV Bld Auto 10.6 fL Normal 12/19/2023 7.5 - 12.5 HHCCT Platelet num Bld Auto 220.0 Thou/uL Normal 12/19/2023 150 - 450 HHCCT RBC num Bld Auto 2.77 Mil/uL Below low normal 12/19/2023 4 - 5.4 HHCCT WBC num Bld Auto 15.2 Thou/uL Above high normal 12/19/2023 4 - 11 HHCCT MCV RBC Auto 97.0 fL Normal 12/19/2023 80 - 100 H[facility]CT RDW RBC Auto-Rto 11.9 % Normal 12/19/2023 11.5 - 14.5 HHCCT POC Glucose 147.0 mg/dL Above high normal 12/18/2023 65 - 99 HHCCT CO2 SerPl-sCnc 20.0 mmol/L Below low normal 12/17/2023 22 - 33 HHCCT Potassium SerPl-sCnc 4.2 mmol/L Normal 12/17/2023 3.4 - 5 .3 HHCCT GFR/BSA.pred SerPlBld PVJ-TFW-IxXBbm >90.0 Normal 12/17/2023 59 - HHCCT Chloride SerPl-sCnc 106.0 mmol/L Normal 12/17/2023 98 - 1 07 H[facility]CT Anion Gap Bld-sCnc 14.0 Normal 12/17/2023 7 - 17 HHCCT Creat SerPl-mCnc 0.6 mg/dL Normal 12/17/2023 0.4 - 1.1 HH CCT Calcium SerPl-mCnc 8.1 mg/dL Below low normal 12/17/2023 8.7 - 10.5 HHCCT Sodium SerPl-sCnc 140.0 mmol/L Normal 12/17/2023 136 - 14 5 HHCCT BUN/Creat SerPl 8.0 Ratio Below low normal 12/17/2023 10 - 2 5 HHCCT Glucose SerPl-mCnc 109.0 mg/dL Above high normal 12/17/2023 65 - 99 HHCCT BUN SerPl-mCnc 5.0 mg/dL Below low normal 12/17/2023 8 - 21 HHCCT Neutrophils/leuk NFr Bld Auto 79.5 % Normal 12/17/2023 HHCCT PMV Bld Auto 10.2 fL Normal 12/17/2023 7.5 - 12.5 HHCCT MCV RBC Auto 96.0 fL Normal 12/17/2023 80 - 100 HHCCT Eosinophil num Bld Auto 0.0 Thou/uL Normal 12/17/2023 0 - 0.7 HHCCT MCH RBC Qn Auto 32.2 pg Normal 12/17/2023 26 - [address] Basophils num Bld Auto 0.03 Thou/uL Normal 12/17/2023 0 - 0.2 HHCCT Hgb Bld-mCnc 9.8 g/dL Below low normal 12/17/2023 11.7 - 15 .7 HHCCT Monocytes num Bld Auto 0.61 Thou/uL Normal 12/17/2023 0.2 - 1.5 HHCCT Monocytes/leuk NFr Bld Auto 5.2 % Normal 12/17/2023 HHCCT Imm Granulocytes/leuk NFr Bld Auto 0.4 % Normal 12/17/2023 HHCCT RBC num Bld Auto 3.04 Mil/uL Below low normal 12/17/2023 4 - 5.4 HHCCT Basophils/leuk NFr Bld Auto 0.3 % Normal 12/17/2023 HHCCT Hct VFr Bld Auto 29.3 % Below low normal 12/17/2023 35 - 47 HHCCT Lymphocytes/leuk NFr Bld Auto 14.6 % Normal 12/17/2023 HHCCT Neutrophils num Bld Auto 9.39 Thou/uL Above high normal 12/17/2023 2 - 7.5 HHCCT Imm Granulocytes num Bld Auto 0.05 Thou/uL Normal 12/17/2023 0 - 0.1 HHCCT MCHC RBC Auto-mCnc 33.4 g/dL Normal 12/17/2023 30 - 36 HHCCT Platelet num Bld Auto 228.0 Thou/uL Normal 12/17/2023 150 - 450 HHCCT WBC num Bld Auto 11.8 Thou/uL Above high normal 12/17/2023 4 - 11 HHCCT Lymphocytes num Bld Auto 1.72 Thou/uL Normal 12/17/2023 1.5 - 4.5 HHCCT Eosinophil/leuk NFr Bld Auto 0.0 % Normal 12/17/2023 HHCCT RDW RBC Auto-Rto 11.9 % Normal 12/17/2023 11.5 - 14.5 HHCCT POC Glucose 89.0 mg/dL Normal 12/16/2023 65 - 99 HHCCT Est. average glucose Bld gHb Est-mCnc 88.0 mg/dL Normal 12/14/2023 HHCCT Hgb A1c MFr Bld 4.7 % Normal 12/14/2023 - 5.[address] Methicillin resistant Staphylococcus aureus (MRSA) DNA [Presence] in Specimen by SVETA with probe detection Negative Normal 12/13/2023 - HHCCT Staphylococcus aureus DNA [Presence] in Specimen by SVETA with probe detection Negative Normal 12/13/2023 - HHCCT Sodium SerPl-sCnc 138.0 mmol/L Normal 12/13/2023 136 - 14 5 HHCCT AST SerPl-cCnc 22.0 U/L Normal 12/13/2023 10 - 50 [facility]CC T Chloride SerPl-sCnc 103.0 mmol/L Normal 12/13/2023 98 - 1 07 HHCCT Bilirub SerPl-mCnc 0.8 mg/dL Normal 12/13/2023 0.2 - 1 HHCCT Calcium SerPl-mCnc 9.6 mg/dL Normal 12/13/2023 8.7 - 10.5 HHCCT BUN SerPl-mCnc 10.0 mg/dL Normal 12/13/2023 8 - [address] Prot SerPl-mCnc 7.7 g/dL Normal 12/13/2023 6.3 - 8.[address] ALP SerPl-cCnc 65.0 U/L Normal 12/13/2023 32 - 122 [facility] T BUN/Creat SerPl 14.0 Ratio Normal 12/13/2023 10 - 25 HH CCT Anion Gap Bld-sCnc 11.0 Normal 12/13/2023 7 - 17 HHCCT GFR/BSA.pred SerPlBld RYE-ARD-VjKPfm >90.0 Normal 12/13/2023 59 - HHCCT Albumin SerPl-mCnc 4.2 g/dL Normal 12/13/2023 3.5 - 5 HHCCT Albumin/Glob SerPl 1.2 Ratio Normal 12/13/2023 1 - 3 HHCCT Glucose SerPl-mCnc 83.0 mg/dL Normal 12/13/2023 65 - 99 HHCCT Creat SerPl-mCnc 0.7 mg/dL Normal 12/13/2023 0.4 - 1.1 HH CCT ALT SerPl-cCnc 19.0 U/L Normal 12/13/2023 10 - 50 HHCC T CO2 SerPl-sCnc 24.0 mmol/L Normal 12/13/2023 22 - 33 HH CCT Potassium SerPl-sCnc 4.0 mmol/L Normal 12/13/2023 3.4 - 5 .3 HHCCT Globulin Ser Calc-mCnc 3.5 g/dL Normal 12/13/2023 1.5 - 3.9 HHCCT aPTT PPP 35.0 seconds Normal 12/13/2023 25 - 36 HHCCT Anticoagulant Information not given Normal 12/13/2023 HHCCT INR PPP 1.0 Normal 12/13/2023 HHCCT Prothrombin time 12.0 seconds Normal 12/13/2023 10 - 13.5 HHCCT Anticoagulant Information not given Normal 12/13/2023 HHCCT Hgb Bld-mCnc 12.7 g/dL Normal 12/13/2023 11.7 - 15.7 [facility] T Basophils/leuk NFr Bld Auto 0.3 % Normal 12/13/2023 HHCCT Imm Granulocytes num Bld Auto 0.02 Thou/uL Normal 12/13/2023 0 - 0.1 HHCCT Monocytes num Bld Auto 0.52 Thou/uL Normal 12/13/2023 0.2 - 1.5 HHCCT Monocytes/leuk NFr Bld Auto 5.9 % Normal 12/13/2023 HHCCT Hct VFr Bld Auto 38.3 % Normal 12/13/2023 35 - 47 HH CCT Platelet num Bld Auto 290.0 Thou/uL Normal 12/13/2023 150 - 450 HHCCT Eosinophil/leuk NFr Bld Auto 0.3 % Normal 12/13/2023 HHCCT Lymphocytes num Bld Auto 2.47 Thou/uL Normal 12/13/2023 1.5 - 4.5 HHCCT MCH RBC Qn Auto 32.1 pg Normal 12/13/2023 26 - [address] MCHC RBC Auto-mCnc 33.2 g/dL Normal 12/13/2023 30 - 36 HHCCT Basophils num Bld Auto 0.03 Thou/uL Normal 12/13/2023 0 - 0.2 HHCCT PMV Bld Auto 10.3 fL Normal 12/13/2023 7.5 - 12.5 HHCCT RBC num Bld Auto 3.96 Mil/uL Below low normal 12/13/2023 4 - 5.4 HHCCT WBC num Bld Auto 8.8 Thou/uL Normal 12/13/2023 4 - 11 HHCCT MCV RBC Auto 97.0 fL Normal 12/13/2023 80 - 100 HHCCT Neutrophils/leuk NFr Bld Auto 65.4 % Normal 12/13/2023 HHCCT Eosinophil num Bld Auto 0.03 Thou/uL Normal 12/13/2023 0 - 0.7 HHCCT RDW RBC Auto-Rto 11.6 % Normal 12/13/2023 11.5 - 14.5 HHCCT Lymphocytes/leuk NFr Bld Auto 27.9 % Normal 12/13/2023 HHCCT Neutrophils num Bld Auto 5.77 Thou/uL Normal 12/13/2023 2 - 7.5 HHCCT Imm Granulocytes/leuk NFr Bld Auto 0.2 % Normal 12/13/2023 HHCCT History of Medication Use Medication Directions Dispensed Refills Start Date End Date Stat PANTOprazole (PROTONIX) 40 MG EC tablet Take 1 tablet (40 mg total) by mouth daily. 12/22/2023 active acetaminophen (TYLENOL) 325 MG tablet Take 3 tablets (975 mg total) by mouth 4 times daily (every 6 hours) as needed for mild pain, moderate pain, headaches or fever. 12/16/2020 active LORazepam (ATIVAN) 0.5 MG tablet Take 1 tablet (0.5 mg total) by mouth daily as needed. active valACYclovir (VALTREX) 500 MG tablet Take 1 tablet (500 mg total) by mouth daily. 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 ProblemAct [facility] Encounters Encounter Type Encounter Reason Primary Diagnosis Location Date Ambulatory Benign neoplasm of peripheral nerves and autonomic nervous system, 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, unspecified [facility] 06/29/2024 Ambulatory Benign neoplasm of peripheral nerves and autonomic nervous system, 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, unspecified [facility] 06/29/2024 Ambulatory [facility] 06/16/2024 Ambulatory Dorsalgia, unspecified Dorsalgia, unspecified [facility] 06/15/2024 Ambulatory Pelvic and perineal pain Pelvic and perineal pain [facility] 01/31/2024 Ambulatory Dorsalgia, unspecified Dorsalgia, unspecified [facility] 01/31/2024 Inpatient Radiculopathy, lumba r region Radiculopathy, lumbar region [facility] 12/16/2023 Ambulatory Encounter for other preprocedural examination Encounter for other preprocedural examination [facility] 12/13/2023 Emergency Back Pain Back Pain [facility] 09/08/2023 Ambulatory Low back pain, unspecified [facility] 03/06/2021 Inpatient Neoplasm of unspecified behavior of bone, soft tissue, and skin [facility] 12/10/2020 Care Team Organization Name Specialty Phone Email Start Date End Gelacio farfan [facility] ELIZABETH RAY Primary Care 09/08/2023 [facility] Bank Examiner 09/08/2023 07/31/2024 [facility],Provider Primary Care 03/06/[id number] [facility] PROVIDER SYSTEM Primary Care 12/10/20202020 [facility], [facility] 12/06/2020 11/01/2023
--- OUTSIDE RECORDS SUMMARY | 2024-12-02 13:03 | XMS_ITS | Clinical Summary ---
Author Organization [facility] Address [address] [place] [address] Care Team Providers Care Manager Demand Name Role Phone System, Provider Not In Primary Care Provider Un available Allergies No known active allergies Medications valACYclovir (VALTREX) 500 MG tablet Take 1 tablet (500 mg total) by mouth daily. Active albuterol (PROVENTIL) (0.083%) 2.5 mg/3 mL nebulizer solution INHALE 1 VIAL VIA NEBULIZER EVERY 6 HOURS NEEDED FOR WHEEZING 1 Active LORazepam (ATIVAN) 0.5 MG tablet Take 1 tablet (0.5 mg total) by mouth daily as needed. Active acetaminophen (TYLENOL) 325 MG tabletIndicatio ns:Spinal axis tumor Take 3 tablets (975 mg total) by mouth 4 times daily (every 6 hours) as needed for mild pain, moderate pain, headaches or fever. 60 tablet 1 Active psyllium (METAMUCIL) 58.6 % packet Take 1 packet by mouth as needed (for bowel issues). Active diazepam (VALIUM) 5 MG tabletIndicatio ns:Lumbar radiculopathy, right Take 1 tablet (5 mg total) by mouth 4 times daily (every 6 hours) as needed for muscle spasms. 4 Active Semaglutide-Bhupinder ght Management (Wegovy) 0.5 MG/0.5ML Solution Auto-injectorIn dications:Lumba r radiculopathy, right Inject 0.5 mg under the skin daily. Do not start before January 20, 2024. 4 Active HYDROmorphone (DILAUDID) 2 MG tabletIndicatio ns:Lumbar radiculopathy, right Take 1 tablet (2mg) every 4-6 hours as needed for moderate post-op pain. May take 2 tablets (4mg) every 4-6 hours as needed for severe post-op pain. Wean as tolerated. 4 Active PANTOprazole (PROTONIX) 40 MG EC tabletIndicatio ns:Lumbar radiculopathy, right Take 1 tablet (40 mg total) by mouth daily. 4 Active polyethylene glycol (miraLAx) 17 g packetIndicatio ns:Lumbar radiculopathy, right Take 1 packet (17 g total) by mouth daily as needed for constipation. 4 Active Active Problems Problem Noted Date Diagnosed Date Lumbar radiculopathy, right 12/16/2023 Genital herpes 12/13/2023 Assessment & Plan (12/13/2023 2:16 PM EDT): Controlled on valtrex. Continue with plan of care and follow up as previously directed for further management and treatment. Asthma 12/13/2023 Assessment & Plan (12/13/2023 2:34 PM EDT): Denies hospitalizations or exacerbations for asthma. Managed by PCP. SpO2 stable on RA. Denies cough, wheezing, or shortness of breath. 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 No 12/17/2023 AUDIT-C Answer Date Recorded Q1: How often do you have a drink containing alcohol? Never 12/01/2023 Q2: How many drinks containi ng alcohol do you have on a typical day when you are drinking? Patient does not drink Q3: How often do you have si x or more drinks on one occasion? Never 12/01/2023 Overall Financial Resource Strain (CARDIA) Answe r Date Recorded How hard is it for you to pa y for the very basics like food, housing, medical care, and heating? Not hard at all 12/17/2023 Hunger Vital Sign Answer Date Recorded Within the past 12 months, y ou worried that your food would run out before you got the money to buy more. Never true 12/17/19 24 Within the past 12 months, t he food you bought just didn't last and you didn't have money to get more. Never true 12/17/2023 PRAPARE - Transportation Answer Date Re corded In the past 12 months, has l ack of transportation kept you from medical appointments or from getting medications? No 06/2023 In the past 12 months, has l ack of transportation kept you from meetings, work, or from getting things needed for daily living? No 12/17/2023 Housing Stability Vital Sign Answer Rito e Recorded In the last 12 months, was t here a time when you were not able to pay the mortgage or rent on time? No 12/17/2023 In the last 12 months, how many places have you lived? 1 12/17/2023 In the last 12 months, was t here a time when you did not have a steady place to sleep or slept in a snf (including now)? No 12/17/2023 Comments No Sex and Gender Information Value Date Recorded Sex Assigned at Female 09/08/2023 12:35 PM EDT Legal Sex Female 10:39 AM EDT Gender Identity Choose not to disclose 12:35 PM EDT Sexual Orientation Choose not to disclose 2023 12:35 PM EDT Last Filed Vital Signs Vital Sign Reading Time Taken Comments Blood Pressure 111/73 12/22/2023 7:59 AM EDT Pulse 66 12/22/2023 7:59 AM EDT Temperature 36.8 C (98.2 F) 12/22/2023 7:59 AM EDT Respiratory Rate 18 12/22/2023 8:11 AM EDT Oxygen Saturation 99% 12/22/2023 8:11 AM EDT Inhaled Oxygen Concentration - - Weight 86.1 kg (189 lb 13 oz) 12/16/2023 9:56 PM EDT Height 167.6 cm (5' 6 ) 12/16/2023 9:56 PM EDT Body Mass Index 30.64 12/16/2023 9:56 PM EDT Plan of Treatment Health Maintenance Due Date Last Done Comments Hepatitis C Virus Screening 1978 HIV Screening 1991 DTaP/Tdap/Td Vaccines (1 - Tdap) 1997 Hepatitis B Vaccines (1 of 3 - 19+ 3-dose series) 1997 Pneumococcal Vaccine: Pediat samanta (0-5 Years) and At-Risk Patients (6 to 49 Years) (1 of 2 - PCV) 1997 Pap Smear (Ages 21-65) 1999 Mammogram 2018 Colonoscopy 2023 Influenza Vaccine 10/13/2024 01/07/2024, , 01/20/2023, Additional history exists COVID-19 Vaccine (2024-2 6 season) 2024 11/06/2020, 10/11/2020 Medical Devices Implanted Type Area Cafeteria Manager Device Identifier Shelf Expiration Date Model / Serial / Lot [id number] Screw Spinal 45mm 6.5mm Lisa Pa Sterl Lf - [id number] Implanted:Qty: 1 on 12/16/2023 by Radha Guerrero MD at [facility] Spine N/A: Sacrum [employer] [id number] 08/22/2031 [id number] / / [id number] Set Screw Lisa Sterl Lf - [id number] Implanted:Qty: 1 on 12/16/2023 by Radha Guerrero MD at [facility] Spine N/A: Sacrum [employer] [id number] 08/22/2031 [id number] / / [id number] Screw Spinal 45mm 6.5mm Lisa Pa Sterl Lf - [id number] Implanted:Qty: 1 on 12/16/2023 by Radha Guerrero MD at [facility] Spine N/A: Sacrum [employer] [id number] 08/11/2031 [id number] / / [id number] Set Screw Lisa Sterl Lf - [id number] Implanted:Qty: 1 on 12/16/2023 by Radha Guerrero MD at [facility] Spine N/A: Sacrum [employer] [id number] 08/11/2031 [id number] / / [id number] Set Screw Lisa Sterl Lf - [id number] Implanted:Qty: 1 on 12/16/2023 by Radha Guerrero MD at [facility] Spine N/A: Sacrum [employer] [id number] 09/06/2031 [id number] / / [id number] Set Screw Lisa Sterl Lf - [id number] Implanted:Qty: 1 on 12/16/2023 by Radha Guerrero MD at [facility] Spine N/A: Sacrum [employer] [id number] 09/06/2031 [id number] / / [id number] Screw Spinal 45mm 6.5mm Lisa Pa Sterl Lf - [id number] Implanted:Qty: 1 on 12/16/2023 by Radha Guerrero MD at [facility] Spine N/A: Sacrum [employer] [id number] 08/11/2031 [id number] / / [id number] Set Screw Lisa Sterl Lf - [id number] Implanted:Qty: 1 on 12/16/2023 by Radha Guerrero MD at [facility] Spine N/A: Sacrum [employer] [id number] 08/11/2031 [id number] / / [id number] Screw Spinal 45mm 6.5mm Lisa Pa Sterl Lf - [id number] Implanted:Qty: 1 on 12/16/2023 by Radha Guerrero MD at [facility] Spine N/A: Sacrum [employer] [id number] 08/22/2031 [id number] / / [id number] Set Screw Lisa Sterl Lf - [id number] Implanted:Qty: 1 on 12/16/2023 by Radha Guerrero MD at [facility] Spine N/A: Sacrum [employer] [id number] 08/22/2031 [id number] / / [id number] System Spinal Fixation 90mm 9.5mm Ifuse Bedrock Grnt Sterl - [id number] Implanted:Qty: 1 on 12/16/2023 by Radha Guerrero MD at [facility] Spine N/A: Sacrum [employer] [id number] 10/10/2033 [id number] / [id number] 2033-10-10 [id number] System Spinal Fixation 90mm 9.5mm Ifuse Bedrock Grnt Sterl - [id number] Implanted:Qty: 1 on 12/16/2023 by Radha Guerrero MD at [facility] Spine N/A: Sacrum [employer] [id number] 10/10/2033 [id number] / [id number] 2033-10-10 [id number] Matrix Tissue 1x1in Drgn Dural Bvn Collagen Ptch Rgnrt Rsrb - [id number] Implanted:Qty: 1 on 12/10/2020 by Radha Guerrero MD at [facility] Tissue [employer] 02/11/2023 [id number] / / [id number] Matrix Tissue 1x1in Drgn Dural Bvn Collagen Ptch Rgnrt Rsrb - [id number] Implanted:Qty: 1 on 12/16/2023 by Radha Guerrero MD at [facility] Tissue N/A: Sacrum [employer] [id number] 06/12/2026 [id number] / / [id number] Graft Bone Virtuos Med Algrf - [id number] Implanted:Qty: 1 on 12/16/2023 by Radha Guerrero MD at [facility] Tissue N/A: Sacrum [employer] [id number] / / [id number] Graft Bone Virtuos Lg Algrf - [id number] Implanted:Qty: 1 on 12/16/2023 by Radha Guerrero MD at [facility] Tissue N/A: Sacrum [employer] 02/18/2025 [id number] / [id number] / [id number] Filler Bone Void 30cc 1.7-10mm Canc Alg Chp Frzdr - [id number] Implanted:Qty: 1 on 12/16/2023 by Radha Guerrero MD at [facility] Void Filler N/A: Sacrum MUSCULOSKELETAL [employer]ANSPL[employer] 09/30/2026 [id number] / [id number] / Straight Marlo Hexa Titanium 5.5 L20 Implanted:Qty: 1 on 12/16/2023 by Radha Guerrero MD at [facility] N/A: Sacrum Dualx T/Plif Implanted:Qty: 1 on 12/16/2023 by Radha Guerrero MD at [facility] N/A: Spine Lumbar Other [id number] / / Description:Cafeteria Manager Amp lify Lockscrew 2 Implanted:Qty: 1 on 12/16/2023 by Radha Guerrero MD at [facility] N/A: Spine Lumbar Other [id number] / / Description:Cafeteria Manager Amp lify Polyacial Screw Implanted:Qty: 1 on 12/16/2023 by Radha Guerrero MD at [facility] N/A: Sacrum Polyaxial Screw Implanted:Qty: 1 on 12/16/2023 by Radha Guerrero MD at [facility] N/A: Sacrum Straight Marlo Hexatitanium 5.5 [id number] Implanted:Qty: 1 on 12/16/2023 by Radha Guerrero MD at [facility] N/A: Sacrum Insurance MEDICAID OUT OF STATE [facility] Advance Directives * Full Code (Latest Code Status on File) Date Activated Date Inactivated Comments 12/16/2023 9:33 PM * Full Code Date Activated Date Inactivated Comments 12/10/2020 11:25 PM 09/08/2023 11:47 AM Care Teams Manager Demand Relationship Specialty Start Date End Date System, Provider Not In PCP - General 12/15/23
== END 2024-12-02 13:02 | disposition home or self-care (01) ==
LOC: HO.ED 13:00
PROVIDERS: Emergency Provider Emergency Medicine; PCP Pediatrics
DX: M54.16 Radiculopathy, lumbar region (principal)
CPT/HCPCS: 96372; 99283; 99284; J1885